=== PATIENT | female | born 1930 | race Caucasian/White ===

== ENCOUNTER 2017-09-11 19:05 | Inpatient (IN) | payer OTHER ==
--- NOTE | 2017-09-11 19:35 | PDOC ---
Rapid Medical Evaluation Time Seen by Provider: 09/11/17 19:27 Medical Evaluation: 09/11/17 19:28 I have performed a brief in-person evaluation of this patient. The patient presents with a chief complaint of: hallucination x 3 weeks. States hallucination worse last night States change in behavior this am, and unable to talk, but now back to normal. States no complaints of pain. Pertinent physical exam findings: HEENT: redness of both sides of face and around eyes NAD unlabored breathing, lungs clear bilaterally heart s1 s2 non tender abdomen I have ordered the following: urinalysis, labs ordered The patient will proceed to the ED for further evaluation.
[2017-09-11 19:36] VITALS: BMI 37.0
[2017-09-11 20:14] LABS: BASO % 0.5 % (0-2.0); EOS % 0.5 % (0-4.5); HEMATOCRIT 36.2 % (32.4-45.2); HEMOGLOBIN 11.9 GM/dL (10.7-15.3); LYMPH % 11.1 % (8-40); MCH 29.4 pg (25.7-33.7); MCHC 32.9 g/dl (32.0-36.0); MEAN CELL VOLUME 89.6 fl (80-96); MEAN PLT VOLUME 10.7 fl (7.5-11.1); MONO % 5.3 % (3.8-10.2); NEUT % 82.6 % (42.8-82.8); PLATELET COUNT 249 K/MM3 (134-434); RBC 4.04 M/mm3 (3.60-5.2); WHITE BLOOD COUNT 9.7 K/mm3 (4.0-10.0)
[2017-09-11 20:31] LABS: INR 0.97 (0.82-1.09)
[2017-09-11 20:33] LABS: ACTIVATED PTT 35.4 SECONDS (26.9-34.4)
[2017-09-11 20:54] LABS: ALK PHOS 98 U/L (45-117); ANION GAP 6 (8-16); BILIRUBIN,TOTAL 0.2 mg/dL (0.2-1.0); BLOOD UREA NITROGEN 40 mg/dL (7-18); CALCIUM 9.1 mg/dL (8.5-10.1); CHLORIDE 107 mmol/L (98-107); CO2 28 mmol/L (21-32); GLUCOSE,RANDOM 221 mg/dL (74-106); SGOT/AST 38 U/L (15-37); SGPT/ALT 34 U/L (12-78); SODIUM 141 mmol/L (136-145); TOT PROT 7.2 g/dl (6.4-8.2)
[2017-09-11 22:38] LABS: PLATELET ESTIMATE ADEQUATE
--- NOTE | 2017-09-11 23:14 | PDOC ---
History of Present Illness - General History Source: Patient Exam Limitations: No Limitations - History of Present Illness Initial Comments: 09/11/17 23:47 Patient is a 87 year old female with pmhx of DM who presents to the ED accompanied by daughters with complaint of hallucinations and increased confusion. As per daughter the patient has been complaining of seeing a man with a gun or mice running around the room. The daughter states that she has noticed increased Parkinson-like symptoms such as tremors, delayed movement and increased difficulty walking. She reports weakness. PCP - Dr. Parsons <Alie Robles - Last Filed: 09/11/17 23:50> <Selam Flores - Last Filed: 09/12/17 01:27> - General Chief Complaint: Psychiatric Stated Complaint: HALUCINATION Time Seen by Provider: 09/11/17 19:27 Past History <Alie Robles - Last Filed: 09/11/17 23:50> - Suicide/Smoking/Psychosocial Hx Smoking History: Never smoked Hx Alcohol Use: No Drug/Substance Use Hx: No <Selam Flores - Last Filed: 09/12/17 01:27> - Past Medical History Allergies/Adverse Reactions: Allergies Allergy/AdvReac Type Severity Reaction Status Date / Time No Known Allergies Allergy Verified 09/11/17 19:32 Review of Systems - Review of Systems Able to Perform ROS?: Yes Comments:: 09/11/17 23:48 CONSTITUTIONAL: Absent: fever, chills, diaphoresis, generalized weakness, malaise, loss of appetite HEENT: Absent: rhinorrhea, nasal congestion, throat pain, throat swelling, difficulty swallowing, mouth swelling, ear pain, eye pain, visual Changes CARDIOVASCULAR: Absent: chest pain, syncope, palpitations, irregular heart rate, lightheadedness , peripheral edema RESPIRATORY: Absent: cough, shortness of breath, dyspnea with exertion, orthopnea, wheezing, stridor, hemoptysis GASTROINTESTINAL: Absent: abdominal pain, abdominal distension, nausea, vomiting, diarrhea, constipation, melena, hematochezia GENITOURINARY: Absent: dysuria, frequency, urgency, hesitancy, hematuria, flank pain, genital pain MUSCULOSKELETAL: Absent: myalgia, arthralgia, joint swelling SKIN: Absent: rash, itching, pallor HEMATOLOGIC/IMMUNOLOGIC: Absent: easy bleeding, easy bruising, lymphadenopathy, frequent infections ENDOCRINE: Absent: unexplained weight gain, unexplained weight loss, heat intolerance, cold intolerance NEUROLOGIC: Absent: headache, focal weakness or paresthesias, dizziness, unsteady gait, seizure, mental status changes, bladder or bowel incontinence PSYCHIATRIC: Present: hallucination Absent: anxiety, depression, suicidal or homicidal ideation. <Stephanie Roblesa - Last Filed: 09/11/17 23:50> *Physical Exam - Vital Signs Last Vital Signs Temp Pulse Resp BP Pulse Ox 98.1 F 57 H 156/92 96 09/11/17 19:25 09/11/17 19:25 09/11/17 19:25 09/11/17 19:25 - Physical Exam Comments: 09/11/17 23:50 GENERAL: Well developed, well nourished. Awake and alert. No acute distress. HEENT: Normocephalic, atraumatic. PERRLA, EOMI. No conjunctival pallor. Sclera are non- icteric. Moist mucous membranes. Oropharynx is clear. NECK: Supple. Full ROM. No JVD. Carotid pulses 2+ and symmetric, without bruits. No thyromegaly. No lymphadenopathy. CARDIOVASCULAR: Regular rate and rhythm. No murmurs, rubs, or gallops. Distal pulses are 2+ and symmetric. PULMONARY: +Bilateral basilar rales. No evidence of respiratory distress. Lungs clear to auscultation bilaterally. No wheezing or rhonchi. ABDOMINAL: Soft. Non-tender. Non-distended. No rebound or guarding. No organomegaly. Normoactive bowel sounds. MUSCULOSKELETAL Normal range of motion at all joints. No bony deformities or tenderness. No CVA tenderness. EXTREMITIES: No cyanosis. No clubbing. No edema. No calf tenderness. SKIN: Warm and dry. Normal capillary refill. No rashes. No jaundice. NEUROLOGICAL: Alert, awake, appropriate. Normal speech. PSYCHIATRIC: Cooperative. Good eye contact. <Alie Robles - Last Filed: 09/11/17 23:50> - Vital Signs Last Vital Signs Temp Pulse Resp BP Pulse Ox 98.1 F 57 H 156/92 96 09/11/17 19:25 09/11/17 19:25 09/11/17 19:25 09/11/17 19:25 <Selam Flores - Last Filed: 09/12/17 01:27> ED Treatment Course - LABORATORY CBC & Chemistry Diagram: 09/11/17 20:05 09/11/17 20:05 - ADDITIONAL ORDERS Additional order review: Laboratory Results 09/11/17 09/11/17 20:05 20:05 PT with INR 11.00 INR 0.97 PTT (Actin FS) 35.4 H Sodium 141 Potassium 4.0 Chloride 107 Carbon Dioxide 28 Anion Gap 6 L BUN 40 H Creatinine 1.0 Creat Clearance w eGFR 52.69 Random Glucose 221 H Calcium 9.1 Total Bilirubin 0.2 AST 38 H ALT 34 Alkaline Phosphatase 98 Total Protein 7.2 Albumin 3.0 L 09/11/17 20:05 RBC 4.04 MCV 89.6 MCHC 32.9 RDW 15.0 MPV 10.7 Neutrophils % 82.6 Lymphocytes % 11.1 Monocytes % 5.3 Eosinophils % 0.5 Basophils % 0.5 <Alie Robles - Last Filed: 09/11/17 23:50> - LABORATORY CBC & Chemistry Diagram: 09/11/17 20:05 09/11/17 20:05 - ADDITIONAL ORDERS Additional order review: Laboratory Results 09/11/17 09/11/17 20:05 20:05 PT with INR 11.00 INR 0.97 PTT (Actin FS) 35.4 H Sodium 141 Potassium 4.0 Chloride 107 Carbon Dioxide 28 Anion Gap 6 L BUN 40 H Creatinine 1.0 Creat Clearance w eGFR 52.69 Random Glucose 221 H Calcium 9.1 Total Bilirubin 0.2 AST 38 H ALT 34 Alkaline Phosphatase 98 Total Protein 7.2 Albumin 3.0 L 09/11/17 20:05 RBC 4.04 MCV 89.6 MCHC 32.9 RDW 15.0 MPV 10.7 Neutrophils % 82.6 Lymphocytes % 11.1 Monocytes % 5.3 Eosinophils % 0.5 Basophils % 0.5 - RADIOLOGY Radiology Studies Ordered: Category Date Time Status HEAD CT WITHOUT CONTRAST [CT] Stat CT Scan 09/11/17 20:39 Completed <Selam Flores - Last Filed: 09/12/17 01:27> Medical Decision Making - Medical Decision Making 09/12/17 01:23 family brought in this 87 yo female because of the past month her hallucinations have been getting worse,she is having increased difficulty walking and she has an arm tremor -no fever ct scan is negative for any acute intracranial pathology UA negative no significant anemia chemistry reveals bun=40 , some dehydration Also hyperglycemia with [id number] Madera , pt will be admitted for further neurological evaluation 09/12/17 01:26 <Selam Flores - Last Filed: 09/12/17 01:27> *DC/Admit/Observation/Transfer - Attestations Scribe Attestion: 09/11/17 23:49 Documentation prepared by CHANNING Santizo, acting as certified medical aide for Selam Flores MD/DO. <Alie Robles - Last Filed: 09/11/17 23:50> - Discharge Dispostion Admit: Yes <Selam Flores - Last Filed: 09/12/17 01:27> Diagnosis at time of Disposition: Hallucinations, visual, Difficulty walking, Coarse tremors Diabetes Qualifiers: Diabetes mellitus type: type 2 Diabetes mellitus complication status: with hyperglycemia Diabetes mellitus intermediate accountant insulin use: without intermediate accountant use Qualified Code(s): E11.65 - Type 2 diabetes mellitus with hyperglycemia
[2017-09-11 23:51] LABS: URINE APPEARANCE SLCLOUDY; URINE BILIRUBIN NEGATIVE (NEGATIVE); URINE BLOOD NEGATIVE (NEGATIVE); URINE COLOR YELLOW; URINE GLUCOSE (UA) NEGATIVE (NEGATIVE); URINE KETONE NEGATIVE (NEGATIVE); URINE NITRITE NEGATIVE (NEGATIVE); URINE UROBILINOGEN NEGATIVE mg/dL (0.2-1.0)
[2017-09-11 23:55] LABS: URINE LEUK ESTERASE 1+ (NEGATIVE); URINE PROTEIN 2+ (NEGATIVE)
[2017-09-11 23:56] LABS: EPI CELLS RARE /HPF (FEW); URINE HYALINE CAST 1 /lpf
[2017-09-12] MEDS ORDERED: ACETAMINOPHEN 325 MG TABLET (FP) PO PRN (06:11)
[2017-09-12] MEDS: INSULIN SLIDING SCALE (NOVOLOG) 1 VIAL SQ SCH ×4 (07:03→22:09)
--- NOTE | 2017-09-12 08:54 | HP ---
Admitting History and Physical - Admission History of Present Illness: 87 year old female with pmhx of DM who presents to the ED accompanied by daughters with complaint of hallucinations and increased confusion. As per daughter the patient has been complaining of seeing a man with a gun or mice running around the room. The daughter states that she has noticed increased Parkinson-like symptoms such as tremors, delayed movement and increased difficulty walking. She reports weakness. PCP - Dr. 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 Cardiovascular: Yes: HTN, Hyperlipdemia Pulmonary: Yes: COPD Endocrine: Yes: Diabetes Mellitus - Smoking History Smoking history: Never smoked Have you smoked in the past 12 months: No - Alcohol/Substance Use Hx Alcohol Use: No Home Medications - Allergies Allergies/Adverse Reactions: Allergies Allergy/AdvReac Type Severity Reaction Status Date / Time No Known Allergies Allergy Verified 09/11/17 19:32 - Home Medications Home Medications: Ambulatory Orders Albuterol Sulfate Inhaler - [Ventolin Hfa Inhaler -] 1 - 2 inh PO QID 09/12/17 Amlodipine Bes/Olmesartan Med [Amlodipine-Olmesartan 10-40 mg] 1 each PO DAILY 09/12/17 Atorvastatin Ca [Lipitor] 20 mg PO HS 09/12/17 Bimatoprost [Lumigan] 1 drop IO DAILY 09/12/17 Brimonidine Tartrate/Timolol [Combigan Eye Drops] 5 ml OP HS 09/12/17 Budesonide/Formeterol Fumarate [SYMBICORT 160/4.5mcg -] 1 inh PO DAILY 09/12/17 Febuxostat [Uloric] 40 mg PO DAILY 09/12/17 Furosemide [Lasix -] 20 mg PO DAILY 09/12/17 Icosapent Ethyl [Vascepa] 1 gm PO DAILY 09/12/17 Insulin Detemir [Levemir Flextouch] 100 unit SQ BIDAC 09/12/17 Montelukast Na [Singulair -] 10 mg PO HS 09/12/17 Nebivolol HCl [Bystolic] 20 mg PO DAILY 09/12/17 Omeprazole 20 mg PO DAILY 09/12/17 Roflumilast [Daliresp] 500 mcg PO DAILY 09/12/17 Saxagliptin HCl [Onglyza] 5 mg PO DAILY 09/12/17 Umeclidinium [place] [Incruse Ellipta] 62.5 mcg IH PRN PRN 09/12/17 Review of Systems - Review of Systems Constitutional: denies: Fever Cardiovascular: reports: No Symptoms Respiratory: reports: No Symptoms Gastrointestinal: reports: No Symptoms Neurological: reports: Confusion, Other (hallucinations) Physical Examination Vital Signs: Vital Signs Temperature 97.8 F 09/12/17 06:00 Pulse Rate 67 09/12/17 06:00 Respiratory Rate 18 09/12/17 06:00 Blood Pressure 141/68 09/12/17 06:00 O2 Sat by Pulse Oximetry (%) 94 L 09/12/17 03:34 Cardiovascular: Yes: Regular Rate and Rhythm Respiratory: Yes: Regular, CTA Bilaterally Gastrointestinal: Yes: Normal Bowel Sounds, Soft Edema: No Neurological: Yes: Alert, Confusion. No: Pre-Existing Deficit Labs: CBC, BMP 09/11/17 20:05 09/11/17 20:05 Imaging - Results Cat Scan: Report Reviewed Problem List - Problems (1) HTN (hypertension) Assessment/Plan: MONITOR BP ON CURRENT MEDS Vital Signs Period Temp Pulse Resp BP Sys/Garcia Pulse Ox Last 24 Hr 97.5 F-98.1 F 63-67 18-57 141-156/68-92 94-98 Code(s): I10 - ESSENTIAL (PRIMARY) HYPERTENSION (2) Diabetes Assessment/Plan: SAME MEDS BGM Code(s): E11.9 - TYPE 2 DIABETES MELLITUS WITHOUT COMPLICATIONS Qualifiers: Diabetes mellitus type: type 2 Diabetes mellitus complication status: with hyperglycemia Diabetes mellitus alf insulin use: without alf use Qualified Code(s): E11.65 - Type 2 diabetes mellitus with hyperglycemia (3) Hallucinations, visual Assessment/Plan: MRI OF HEAD NEURO CHECK LABS Code(s): R44.1 - VISUAL HALLUCINATIONS
[2017-09-12] MEDS: PANTOPRAZOLE 40 MG TABLET (FP) PO SCH (09:23)
[2017-09-12] MEDS: FUROSEMIDE 40 MG TABLET (FP) PO SCH (09:23)
[2017-09-12] MEDS: NEBIVOLOL 5 MG TABLET (FP) PO SCH (09:23)
[2017-09-12] MEDS: amLODIPine BESYLATE 10 MG TABLET (FP) PO SCH (09:23)
[2017-09-12] MEDS: VALSARTAN 160 MG TABLET (UD) PO SCH (09:23)
[2017-09-12 09:56] LABS: BASO % 1.1 % (0-2.0); HEMATOCRIT 34.3 % (32.4-45.2); HEMOGLOBIN 11.1 GM/dL (10.7-15.3); LYMPH % 20.5 % (8-40); MCHC 32.4 g/dl (32.0-36.0); MEAN CELL VOLUME 89.3 fl (80-96); MEAN PLT VOLUME 10.6 fl (7.5-11.1); MONO % 7.5 % (3.8-10.2); NEUT % 69.9 % (42.8-82.8); PLATELET COUNT 231 K/MM3 (134-434); RBC 3.84 M/mm3 (3.60-5.2); RDW 14.4 % (11.6-15.6); WHITE BLOOD COUNT 7.1 K/mm3 (4.0-10.0)
[2017-09-12] MEDS ORDERED: PNEUMOC 13-VAL CONJ-DIP CRM/PF 0.5 ML DISP.SYRIN IM ONE (10:00)
[2017-09-12] MEDS ORDERED: FLU VACCINE QUAD 60 MCG/0.5 ML (MDV 17-18) IM ONE (10:00)
[2017-09-12 10:19] LABS: CHLORIDE 109 mmol/L (98-107); POTASSIUM 3.8 mmol/L (3.5-5.1); SODIUM 144 mmol/L (136-145)
[2017-09-12 10:33] LABS: ALBUMIN 2.8 g/dl (3.4-5.0); ALK PHOS 85 U/L (45-117); ANION GAP 6 (8-16); BILIRUBIN,TOTAL 0.3 mg/dL (0.2-1.0); BLOOD UREA NITROGEN 29 mg/dL (7-18); CALCIUM 9.2 mg/dL (8.5-10.1); CO2 29 mmol/L (21-32); CREATININE 0.7 mg/dL (0.55-1.02); GLUCOSE,RANDOM 128 mg/dL (74-106); SGOT/AST 33 U/L (15-37); TOT PROT 6.5 g/dl (6.4-8.2)
[2017-09-12] MEDS: ALBUTEROL SO4 2.5/IPRATROPIUM 0.5 INH SOL 3 ML VIAL.NEB. NEB PRN ×2 (10:52→23:15)
[2017-09-12 10:53] LABS: SGPT/ALT 32 U/L (12-78)
[2017-09-12] MEDS: ROFLUMILAST 500 MCG TABLET PO SCH (11:00)
[2017-09-12] MEDS: FEBUXOSTAT 40 MG TAB PO SCH (11:00)
[2017-09-12] MEDS: BUDESONIDE/FORMETEROL FUMARATE 160/4.5 mcg INHALER IH SCH ×2 (11:00→23:00)
[2017-09-12] MEDS ORDERED: PT OWN MED DRAWER 7, Y5N ONE ×2 (16:19→21:42)
[2017-09-12] MEDS ORDERED: INSULIN DETEMIR 100 UNITS/ML MDV SQ SCH ×2 (16:30→22:00)
[2017-09-12] MEDS ORDERED: INSULIN (NOVOLOG) ASPART 100 UNITS/ML 10ML VIAL ONE ×2 (17:32→21:41)
[2017-09-12] MEDS ORDERED: INSULIN (NOVOLOG MIX 70/30) 100 UNITS/ML MDV SQ ONE (17:32)
[2017-09-12] MEDS ORDERED: LORazepam 1 MG TABLET PO ONE (19:30)
--- NOTE | 2017-09-12 21:16 | EKG ---
Test Reason : Blood Pressure : / mmHG Vent. Rate : 059 BPM Atrial Rate : 059 BPM P-R Int : 190 ms QRS Dur : 098 ms QT Int : 444 ms P-R-T Axes : 026 -14 068 degrees QTc Int : 439 ms SINUS BRADYCARDIA SEPTAL INFARCT (CITED ON OR BEFORE 11-SEP-2017) ABNORMAL ECG WHEN COMPARED WITH ECG OF 11-SEP-2017 21:52, NO SIGNIFICANT CHANGE WAS FOUND Confirmed by MD REBECA, DEEPTHI ([id number]) on 09/12/2017 9:16:12 PM Referred By: Sam SERVIN Confirmed By:DEEPTHI JOSE MD
[2017-09-12] MEDS ORDERED: DEXTROSE 50%-WATER - 25 GM/50 ML VIAL IVPUSH ONE (22:00)
[2017-09-12] MEDS ORDERED: DEXTROSE 50%-WATER 25 GM/50 ML DISP.SYRIN ONE (22:02)
[2017-09-12] MEDS: MONTELUKAST NA 10 MG TABLET PO SCH (23:00)
[2017-09-12] MEDS: ATORVASTATIN CA 20 MG TABLET (FP) PO SCH (23:00)
--- NOTE | 2017-09-12 23:30 | HOSP ---
Subjective - Review of Symptoms Events since last encounter: Late entry for rapid response called at 10PM: Rapid response called due to hypoglycemia. BGM noted 31. Physical Examination Vital Signs: Vital Signs Temperature 98.3 F 09/12/17 19:10 Pulse Rate 64 09/12/17 19:10 Respiratory Rate 18 09/12/17 19:10 Blood Pressure 133/70 09/12/17 19:10 O2 Sat by Pulse Oximetry (%) 94 L 09/12/17 10:00 Constitutional: Yes: Diaphoresis Cardiovascular: Yes: Regular Rate and Rhythm, S1, S2 Respiratory: Yes: CTA Bilaterally Gastrointestinal: Yes: Normal Bowel Sounds, Soft Neurological: Yes: Other (pt lethargic but arousable, confused, able to squeeze hand) Labs: CBC, BMP 09/12/17 09:15 09/12/17 09:15 Hospitalist Encounter Assessment: Hypoglycemia - Dextrose 50% one amp given with good response. pt alert, back to baseline - repeat BGM in one hour. - pt received 50u levemir @ 530pm, will decrease dose by 25% to 37 units for tomorrow - consider splitting dose into bid dosing Addendum 0200: Pt BGM again 38. D50 given again, repeat BGM one hour. nursing staff report poor po intake. Will start IVF D5NS @ 75 cc/hr for now, reassess by PCP in am. will dc levemir for now, restart when po intake improved or sugars elevated.
[2017-09-13] MEDS: DEXTROSE 5%-NORMAL SALINE 1,000 ML IV SCH ×2 (02:26→23:10)
[2017-09-13] MEDS ORDERED: DEXTROSE 50%-WATER - 25 GM/50 ML VIAL IVPUSH ONE (02:30)
[2017-09-13] MEDS: INSULIN SLIDING SCALE (NOVOLOG) 1 VIAL SQ SCH ×4 (06:13→23:09)
[2017-09-13] MEDS ORDERED: INSULIN (NOVOLOG) ASPART 100 UNITS/ML 10ML VIAL ONE ×2 (06:21→21:23)
--- NOTE | 2017-09-13 11:19 | EKG ---
Test Reason : Blood Pressure : / mmHG Vent. Rate : 054 BPM Atrial Rate : 054 BPM P-R Int : 164 ms QRS Dur : 098 ms QT Int : 488 ms P-R-T Axes : 039 -02 077 degrees QTc Int : 462 ms POOR DATA QUALITY, INTERPRETATION MAY BE ADVERSELY AFFECTED SINUS BRADYCARDIA SEPTAL INFARCT , AGE UNDETERMINED ABNORMAL ECG NO PREVIOUS ECGS AVAILABLE Confirmed by TERESA MASCORRO, KULWINDER ([id number]) on 09/13/2017 11:19:07 AM Referred By: Confirmed By:KULWINDER MOORE MD
[2017-09-13] MEDS ORDERED: PT OWN MED DRAWER 7, Y5N ONE (11:45)
[2017-09-13] MEDS: NEBIVOLOL 5 MG TABLET (FP) PO SCH ×2 (11:55→23:20)
[2017-09-13] MEDS: VALSARTAN 160 MG TABLET (UD) PO SCH (11:56)
[2017-09-13] MEDS: PANTOPRAZOLE 40 MG TABLET (FP) PO SCH (11:57)
[2017-09-13] MEDS: amLODIPine BESYLATE 10 MG TABLET (FP) PO SCH (11:57)
[2017-09-13] MEDS: ROFLUMILAST 500 MCG TABLET PO SCH (11:59)
[2017-09-13] MEDS: FEBUXOSTAT 40 MG TAB PO SCH (11:59)
[2017-09-13] MEDS: BUDESONIDE/FORMETEROL FUMARATE 160/4.5 mcg INHALER IH SCH ×2 (11:59→23:07)
[2017-09-13] MEDS: FUROSEMIDE 40 MG TABLET (FP) PO SCH (12:00)
--- NOTE | 2017-09-13 14:31 | CONSULT ---
Consult - text type - Consultation Consultation Note: NEUROLOGY CONSULTATION is greatly appreciated: Events reviewed and discussed with RN (Magali). Pt examined at 9:00 hrs. This 87 yo RH woman lives with her daughter. Cameroonian speaking only. PMH sig for HTN, DM, Chol, gout,COPD, GERD, gloucoma. On insulisns, onglyza, ventolyn, daliresp, amlodipine, atorvastatin, uloric, lasix, vascepas, singulair, Bystolic, omeprazole, ellipta, and multiple gtts. Now admitted after 3 weeks of increased confusion, visual hallucinations and "worsening Parkinsonian symtoms" although it is not clear that she carries a diagnosis of Parkinson's disease. Hallucinations included men in her room with a gun and mice scurrying around the floor. CT of head and MRI of brain (both reviewed): Show moderate atrophy and moderate periventricular, white matter, microvascular changes. No CVA's etc. B12, TSH normal. Episode of hypoglycemia last night noted. EXAM: Pt found in W/C in hallway. Calm, cooperative. No head trauma. No bruits. Follows commands in Cam[place]onian. +Glabella. Does not know the day, month or year. Sparse fluent speech. CN II-XII: normal. Sl masked. Motor: No drift. + rest tremor. + cogwheeling. Normal strength and reflexes. Toes downgoing. Coord: No obvious FTN dystaxia Sensory: Feels touch throughout. Gait: Stands with assistance. + Retropulsive. Frozen, festinating. IMP: 1. Moderate, Bilateral, Cerebral dysfunction (OMS/Chronic features). 2. Parkinsonism, possible Parkinson's disease. 3. Parkinson's Disease Psychosis- Cannot exclude Lewy Body Dementia (LBD) . SUGGEST: Check RPR and r/o occult infection. Simplify polypharmacy as much as possible. Night light and gentle environmental stimulae Try Carbidopa/levadopa ER 25/100: 1/2 PO TID with meals for 1 week then 1 PO TID with meals. Nuplazid (Pimavanserin) 34 mg PO q AM as out patient for Parkinson 's disease Psychosis Begin Rivastigmine 1.5 mg BID with breakfast and dinner for OMS. Thank you very much, Ruslan Murillo MD
[2017-09-13] MEDS ORDERED: INSULIN DETEMIR 100 UNITS/ML MDV SQ SCH ×2 (16:30)
--- NOTE | 2017-09-13 18:33 | PN ---
Progress Note, Physician Chief Complaint: Altered Mental Status History of Present Illness: NAD, head CT negative hypoglycemia overnight noted levemir on hold neurology consult appreciated - Current Medication List Current Medications: Active Medications Acetaminophen (Tylenol -) 650 mg PO Q6H PRN PRN Reason: FEVER OR PAIN Last Admin: 09/12/17 16:09 Dose: 650 mg Albuterol/Ipratropium (Duoneb -) 1 amp NEB Q6H PRN PRN Reason: SHORTNESS OF BREATH Last Admin: 09/12/17 23:15 Dose: 1 amp Amlodipine Besylate (Norvasc -) 10 mg PO DAILY [facility] Last Admin: 09/13/17 11:57 Dose: Not Given Atorvastatin Calcium (Lipitor -) 20 mg PO HS [facility] Last Admin: 09/12/17 23:00 Dose: Not Given Budesonide/Formoterol Fumarate (Symbicort 160/4.5mcg -) 2 puff IH BID [facility] Last Admin: 09/13/17 11:59 Dose: Not Given Carbidopa/Levodopa (Sinemet *Cr* 25/100 -) 0.5 combo PO TID [facility] Febuxostat (Uloric -) 40 mg PO DAILY [facility] Last Admin: 09/13/17 11:59 Dose: 40 mg Furosemide (Lasix -) 40 mg PO DAILY [facility] Last Admin: 09/13/17 12:00 Dose: Not Given Dextrose/Sodium Chloride (D5-Ns -) 1,000 mls @ 75 mls/hr IV ASDIR [facility] Last Admin: 09/13/17 02:26 Dose: 75 mls/hr Insulin Aspart (Novolog Vial Sliding Scale -) 1 vial SQ ACHS [facility] PRN Reason: Protocol Last Admin: 09/13/17 17:51 Dose: Not Given Montelukast Sodium (Singulair -) 10 mg PO HS [facility] Last Admin: 09/12/17 23:00 Dose: Not Given Nebivolol (Bystolic -) 5 mg PO DAILY [facility] Last Admin: 09/13/17 11:55 Dose: Not Given Pantoprazole Sodium (Protonix -) 40 mg PO DAILY [facility] Last Admin: 09/13/17 11:57 Dose: 40 mg Rivastigmine Tartrate (Exelon (Nf) -) 1.5 mg PO BID [facility] Roflumilast (Daliresp -) 500 mcg PO DAILY [facility] Last Admin: 09/13/17 11:59 Dose: 500 mcg Valsartan (Diovan -) 160 mg PO DAILY [facility] Last Admin: 09/13/17 11:56 Dose: Not Given - Objective Vital Signs: Vital Signs Temperature 97.3 F L 09/13/17 15:21 Pulse Rate 60 09/13/17 15:21 Respiratory Rate 18 09/13/17 15:21 Blood Pressure 136/72 09/13/17 15:21 O2 Sat by Pulse Oximetry (%) 93 L 09/12/17 21:00 Constitutional: Yes: Well Nourished, No Distress, Calm Cardiovascular: Yes: Regular Rate and Rhythm Respiratory: Yes: Regular Gastrointestinal: Yes: Normal Bowel Sounds Musculoskeletal: Yes: WNL Extremities: Yes: WNL Neurological: Yes: Alert, Pre-Existing Deficit Psychiatric: Yes: Alert Labs: CBC, BMP 09/12/17 09:15 09/12/17 09:15 INR, PTT INR 0.97 (0.82-1.09) 09/11/17 20:05 Problem List - Problems (1) Coarse tremors Code(s): G25.2 - OTHER SPECIFIED FORMS OF TREMOR (2) Diabetes Assessment/Plan: -Endocrinology consult -short acting insulin for now -hold long acting insulin Code(s): E11.9 - TYPE 2 DIABETES MELLITUS WITHOUT COMPLICATIONS Qualifiers: Diabetes mellitus type: type 2 Diabetes mellitus complication status: with hyperglycemia Diabetes mellitus chcf insulin use: without chcf use Qualified Code(s): E11.65 - Type 2 diabetes mellitus with hyperglycemia (3) Hallucinations, visual Assessment/Plan: seen by Neurology -CT head negative -medication regimen adjusted Code(s): R44.1 - VISUAL HALLUCINATIONS (4) HTN (hypertension) Assessment/Plan: Medications readjusted parameters placed Code(s): I10 - ESSENTIAL (PRIMARY) HYPERTENSION Assessment/Plan see problem list Physical therapy
[2017-09-13] MEDS ORDERED: amLODIPine BESYLATE 10 MG TABLET (FP) PO SCH (19:31)
--- NOTE | 2017-09-13 19:54 | CONSULT ---
Consult Consult Specialty:: Endocrinology coverage for Dr Mckay Reason for Consultation:: uncontrolled blood sugar - History of Present Illness Chief Complaint: Confusion History of Present Illness: This is an 87 year old female with h/o DM for few years, on Insulin who presents to the ED accompanied by daughters with complaint of hallucinations and increased confusion. As per daughter the patient has been complaining of seeing a man with a gun or mice running around the room. The daughter states that she has noticed increased Parkinson-like symptoms such as tremors, delayed movement and increased difficulty walking. She reports weakness. As per family members at bedside pt gets Levemir 15 to 20 units daily. Last blood sugar at home was in the 80s. Has history of hospitalization for hyperglycemia once about a year ago. No admissions for hypoglycemia. Pt had episode of hypoglycemia last night which needed IV glucose. Pt currently awake, alert and follows instructions. As per family members pt didnot complain of any visual symptoms or paresthesia of feet. 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 Cardio/Vascular: Yes: HTN, Hyperlipdemia Pulmonary: Yes: COPD Endocrine: Yes: Diabetes Mellitus - Alcohol/Substance Use Hx Alcohol Use: No - Smoking History Smoking history: Never smoked Have you smoked in the past 12 months: No Home Medications - Allergies Allergies/Adverse Reactions: Allergies Allergy/AdvReac Type Severity Reaction Status Date / Time No Known Allergies Allergy Verified 09/11/17 19:32 - Home Medications Home Medications: Ambulatory Orders Albuterol Sulfate Inhaler - [Ventolin Hfa Inhaler -] 1 - 2 inh PO QID 09/12/17 Amlodipine Bes/Olmesartan Med [Amlodipine-Olmesartan 10-40 mg] 1 each PO DAILY 09/12/17 Atorvastatin Ca [Lipitor] 20 mg PO HS 09/12/17 Bimatoprost [Lumigan] 1 drop IO DAILY 09/12/17 Brimonidine Tartrate/Timolol [Combigan Eye Drops] 5 ml OP HS 09/12/17 Budesonide/Formeterol Fumarate [SYMBICORT 160/4.5mcg -] 1 inh PO DAILY 09/12/17 Febuxostat [Uloric] 40 mg PO DAILY 09/12/17 Furosemide [Lasix -] 20 mg PO DAILY 09/12/17 Icosapent Ethyl [Vascepa] 1 gm PO DAILY 09/12/17 Insulin Detemir [Levemir Flextouch] 100 unit SQ BIDAC 09/12/17 Montelukast Na [Singulair -] 10 mg PO HS 09/12/17 Nebivolol HCl [Bystolic] 20 mg PO DAILY 09/12/17 Omeprazole 20 mg PO DAILY 09/12/17 Roflumilast [Daliresp] 500 mcg PO DAILY 09/12/17 Saxagliptin HCl [Onglyza] 5 mg PO DAILY 09/12/17 Umeclidinium [place] [Incruse Ellipta] 62.5 mcg IH PRN PRN 09/12/17 Family Disease History - Family Disease History Family Disease History: Diabetes: Daughter Review of Systems Unable to obtain ROS, reason: Confusion Physical Exam Vital Signs: Vital Signs Temperature 97.4 F L 09/13/17 19:01 Pulse Rate 60 09/13/17 15:21 Respiratory Rate 18 09/13/17 15:21 Blood Pressure 136/72 09/13/17 15:21 O2 Sat by Pulse Oximetry (%) 93 L 09/12/17 21:00 Constitutional: Yes: Well Nourished, Calm Eyes: Yes: Conjunctiva Clear, EOM Intact HENT: Yes: Atraumatic, Normocephalic Neck: Yes: Supple, Trachea Midline Cardiovascular: Yes: Regular Rate and Rhythm Respiratory: Yes: Regular, CTA Bilaterally Gastrointestinal: Yes: Normal Bowel Sounds, Soft Extremities: Yes: WNL Edema: No Neurological: Yes: Alert Labs: CBC, BMP 09/12/17 09:15 09/12/17 09:15 Problem List - Problems (1) Diabetes Code(s): E11.9 - TYPE 2 DIABETES MELLITUS WITHOUT COMPLICATIONS Qualifiers: Diabetes mellitus type: type 2 Diabetes mellitus complication status: with hyperglycemia Diabetes mellitus watermelon inspector insulin use: without long-term use Qualified Code(s): E11.65 - Type 2 diabetes mellitus with hyperglycemia (2) HTN (hypertension) Code(s): I10 - ESSENTIAL (PRIMARY) HYPERTENSION (3) Hallucinations, visual Code(s): R44.1 - VISUAL HALLUCINATIONS Assessment/Plan AP: Confusion Dementia T2DM Continue D5NS at 75cc/hr Novolog coverage when Fs 200 HbA1c 9.0 If no contraindication pt maybe started on oral meds instead of Insulin to avoid hypoglycemia. Neurology consult noted Will f/u
[2017-09-13] MEDS ORDERED: RIVASTIGMINE TARTRATE 1.5 MG CAPSULE PO SCH (22:00)
[2017-09-13] MEDS: MONTELUKAST NA 10 MG TABLET PO SCH (23:08)
[2017-09-13] MEDS: ATORVASTATIN CA 20 MG TABLET (FP) PO SCH (23:09)
[2017-09-13] MEDS: amLODIPine BESYLATE 5 MG TABLET (FP) PO SCH (23:21)
[2017-09-14] MEDS: DEXTROSE 5%-NORMAL SALINE 1,000 ML IV SCH ×2 (02:30→13:52)
[2017-09-14] MEDS: INSULIN SLIDING SCALE (NOVOLOG) 1 VIAL SQ SCH ×4 (07:00→21:51)
[2017-09-14] MEDS: RIVASTIGMINE TARTRATE 1.5 MG CAPSULE PO SCH ×2 (09:00→16:49)
[2017-09-14] MEDS ORDERED: PT OWN MED DRAWER 7, Y5N ONE ×3 (09:28→20:42)
[2017-09-14] MEDS: FEBUXOSTAT 40 MG TAB PO SCH (09:30)
[2017-09-14] MEDS: ROFLUMILAST 500 MCG TABLET PO SCH (09:30)
[2017-09-14] MEDS: FUROSEMIDE 40 MG TABLET (FP) PO SCH (09:31)
[2017-09-14] MEDS: PANTOPRAZOLE 40 MG TABLET (FP) PO SCH (09:31)
[2017-09-14] MEDS: VALSARTAN 160 MG TABLET (UD) PO SCH (09:31)
[2017-09-14] MEDS: amLODIPine BESYLATE 5 MG TABLET (FP) PO SCH (09:31)
[2017-09-14] MEDS: NEBIVOLOL 5 MG TABLET (FP) PO SCH (09:31)
[2017-09-14] MEDS: BUDESONIDE/FORMETEROL FUMARATE 160/4.5 mcg INHALER IH SCH ×2 (10:00→21:51)
--- NOTE | 2017-09-14 11:27 | PN ---
Progress Note, Physician Chief Complaint: Altered Mental Status History of Present Illness: NAD, head CT negative on D5 ns seen by endocrinology Novolog coverage for BGM >200 may be PO antihyperglycemics once BGM's normalized neurology consult appreciated - Current Medication List Current Medications: Active Medications Acetaminophen (Tylenol -) 650 mg PO Q6H PRN PRN Reason: FEVER OR PAIN Last Admin: 09/12/17 16:09 Dose: 650 mg Albuterol/Ipratropium (Duoneb -) 1 amp NEB Q6H PRN PRN Reason: SHORTNESS OF BREATH Last Admin: 09/12/17 23:15 Dose: 1 amp Amlodipine Besylate (Norvasc -) 5 mg PO DAILY [facility] Last Admin: 09/14/17 09:31 Dose: 5 mg Atorvastatin Calcium (Lipitor -) 20 mg PO HS [facility] Last Admin: 09/13/17 23:09 Dose: 20 mg Budesonide/Formoterol Fumarate (Symbicort 160/4.5mcg -) 2 puff IH BID [facility] Last Admin: 09/13/17 23:07 Dose: 2 inh Carbidopa/Levodopa (Sinemet *Cr* 25/100 -) 0.5 combo PO TIDCM MIAH Stop: 09/16/17 17:31 Last Admin: 09/14/17 09:00 Dose: 0.5 combo Carbidopa/Levodopa (Sinemet *Cr* 25/100 -) 1 combo PO TIDCM MIAH Febuxostat (Uloric -) 40 mg PO DAILY [facility] Last Admin: 09/14/17 09:30 Dose: 40 mg Furosemide (Lasix -) 40 mg PO DAILY [facility] Last Admin: 09/14/17 09:31 Dose: 40 mg Dextrose/Sodium Chloride (D5-Ns -) 1,000 mls @ 75 mls/hr IV ASDIR [facility] Last Admin: 09/14/17 02:30 Dose: Not Given Insulin Aspart (Novolog Vial Sliding Scale -) 1 vial SQ ACHS MIAH PRN Reason: Protocol Last Admin: 09/14/17 07:00 Dose: Not Given Montelukast Sodium (Singulair -) 10 mg PO HS [facility] Last Admin: 09/13/17 23:08 Dose: 10 mg Nebivolol (Bystolic -) 5 mg PO DAILY [facility] Last Admin: 09/14/17 09:31 Dose: 5 mg Pantoprazole Sodium (Protonix -) 40 mg PO DAILY [facility] Last Admin: 09/14/17 09:31 Dose: 40 mg Rivastigmine Tartrate (Exelon (Nf) -) 1.5 mg PO BIDWM [facility] Last Admin: 09/14/17 09:00 Dose: 1.5 mg Roflumilast (Daliresp -) 500 mcg PO DAILY [facility] Last Admin: 09/14/17 09:30 Dose: 500 mcg Valsartan (Diovan -) 160 mg PO DAILY [facility] Last Admin: 09/14/17 09:31 Dose: 160 mg - Objective Vital Signs: Vital Signs Temperature 97.9 F 09/14/17 10:00 Pulse Rate 65 09/14/17 10:00 Respiratory Rate 20 09/14/17 10:00 Blood Pressure 145/63 09/14/17 10:00 O2 Sat by Pulse Oximetry (%) 96 09/14/17 10:00 Constitutional: Yes: Well Nourished, No Distress, Calm Cardiovascular: Yes: Regular Rate and Rhythm Respiratory: Yes: Regular Gastrointestinal: Yes: Normal Bowel Sounds Edema: No Peripheral Pulses WNL: Yes Neurological: Yes: Alert, Pre-Existing Deficit Psychiatric: Yes: Alert Labs: CBC, BMP 09/12/17 09:15 09/12/17 09:15 INR, PTT INR 0.97 (0.82-1.09) 09/11/17 20:05 Problem List - Problems (1) Coarse tremors Code(s): G25.2 - OTHER SPECIFIED FORMS OF TREMOR (2) Diabetes Assessment/Plan: -Endocrinology consult -short acting insulin for now -hold long acting insulin -D5 Code(s): E11.9 - TYPE 2 DIABETES MELLITUS WITHOUT COMPLICATIONS Qualifiers: Diabetes mellitus type: type 2 Diabetes mellitus complication status: with hyperglycemia Diabetes mellitus assisted insulin use: without assisted use Qualified Code(s): E11.65 - Type 2 diabetes mellitus with hyperglycemia (3) Hallucinations, visual Assessment/Plan: seen by Neurology -CT head negative -medication regimen adjusted Code(s): R44.1 - VISUAL HALLUCINATIONS (4) HTN (hypertension) Assessment/Plan: Medications readjusted parameters placed Code(s): I10 - ESSENTIAL (PRIMARY) HYPERTENSION Assessment/Plan see problem list Physical therapy
[2017-09-14] MEDS ORDERED: DEXTROSE 5%-NORMAL SALINE 1,000 ML IV SCH (12:19)
--- NOTE | 2017-09-14 12:23 | PN ---
Progress Note (short form) - Note Progress Note: Awake, Sitting in chair in NAD Blood sugar 200s No hypos Vital Signs Period Temp Pulse Resp BP Sys/Garcia Pulse Ox Last 24 Hr 97.3 F-98.1 F 60-127 18-20 128-150/63-81 94-96 PE: Awake, alert Neck: Supple, No JVD HEENT: EOMI Lungs: CTA CVS: S1S2 Abd: Benign EXt: No edema CMP Sodium 144 mmol/L (136-145) 09/12/17 09:15 Potassium 3.8 mmol/L (3.5-5.1) 09/12/17 09:15 Chloride 109 mmol/L (98-107) H 09/12/17 09:15 Carbon Dioxide 29 mmol/L (21-32) 09/12/17 09:15 Anion Gap 6 (8-16) L 09/12/17 09:15 BUN 29 mg/dL (7-18) H D 09/12/17 09:15 Creatinine 0.7 mg/dL (0.55-1.02) D 09/12/17 09:15 Creat Clearance w eGFR > 60 (>60) 09/12/17 09:15 POC Glucometer 199 UNITS (80-120) 09/14/17 06:31 Random Glucose 128 mg/dL (74-106) H D 09/12/17 09:15 Hemoglobin A1c % 9.0 % (4.8-6.0) H 09/12/17 09:15 Uric Acid 2.3 mg/dL (2.6-7.2) L 09/14/17 06:00 Calcium 9.2 mg/dL (8.5-10.1) 09/12/17 09:15 Total Bilirubin 0.3 mg/dL (0.2-1.0) D 09/12/17 09:15 AST 33 U/L (15-37) 09/12/17 09:15 ALT 32 U/L (12-78) 09/12/17 09:15 Alkaline Phosphatase 85 U/L (45-117) 09/12/17 09:15 Total Protein 6.5 g/dl (6.4-8.2) 09/12/17 09:15 Albumin 2.8 g/dl (3.4-5.0) L 09/12/17 09:15 Vitamin B12 1620 pg/ml (180-914) H 09/12/17 09:15 TSH 1.91 uIU/ml (0.358-3.74) 09/12/17 09:15 Current Medications Generic Name Dose Route Start Last Admin Trade Name Freq PRN Reason Stop Dose Admin Acetaminophen 650 mg 09/12/17 06:11 09/12/17 16:09 Tylenol - PO 650 mg Q6H PRN Administration FEVER OR PAIN Albuterol/Ipratropium 1 amp 09/12/17 06:11 09/12/17 23:15 Duoneb - NEB 1 amp Q6H PRN Administration SHORTNESS OF BREATH Amlodipine Besylate 5 mg 09/13/17 19:45 09/14/17 09:31 Norvasc - PO 5 mg DAILY MIAH Administration Atorvastatin Calcium 20 mg 09/12/17 22:00 09/13/17 23:09 Lipitor - PO 20 mg HS MIAH Administration Budesonide/Formoterol Fumarate 2 puff 09/12/17 10:00 09/13/17 23:07 Symbicort 160/4.5mcg - IH 2 inh BID MIAH Administration Carbidopa/Levodopa 0.5 combo 09/14/17 08:00 09/14/17 09:00 Sinemet *Cr* 25/100 - PO 09/16/17 17:31 0.5 combo TIDCM MIAH Administration Carbidopa/Levodopa 1 combo 09/17/17 08:00 Sinemet *Cr* 25/100 - PO TIDCM MIAH Febuxostat 40 mg 09/12/17 10:00 09/14/17 09:30 Uloric - PO 40 mg DAILY M[facility] Administration Furosemide 40 mg 09/12/17 10:00 09/14/17 09:31 Lasix - PO 40 mg DAILY MIAH Administration Dextrose/Sodium Chloride 1,000 mls @ 42 mls/hr 09/14/17 12:30 D5-Ns - IV ASDIR MIAH Dextrose/Sodium Chloride 1,000 mls @ 43 mls/hr 09/14/17 12:19 D5-Ns - IV ASDIR MIAH Insulin Aspart 1 vial 09/13/17 22:00 09/14/17 11:52 Novolog Vial Sliding Scale - SQ 2 unit ACHS MIAH Administration Protocol Montelukast Sodium 10 mg 09/12/17 22:00 09/13/17 23:08 Singulair - PO 10 mg HS MIAH Administration Nebivolol 5 mg 09/13/17 19:45 09/14/17 09:31 Bystolic - PO 5 mg DAILY MIAH Administration Pantoprazole Sodium 40 mg 09/12/17 10:00 09/14/17 09:31 Protonix - PO 40 mg DAILY MIA[facility] Administration Rivastigmine Tartrate 1.5 mg 09/14/17 08:00 09/14/17 09:00 Exelon (Nf) - PO 1.5 mg BIDWM MIAH Administration Roflumilast 500 mcg 09/12/17 10:00 09/14/17 09:30 Daliresp - PO 500 mcg DAILY [facility] Administration Valsartan 160 mg 09/13/17 19:33 09/14/17 09:31 Diovan - PO 160 mg DAILY [facility] Administration AP: AP: Confusion Dementia T2DM Decrease D5NS at 42 cc/hr Novolog coverage when FS 200 HbA1c 9.0 If no contraindication pt maybe started on oral meds instead of Insulin to avoid hypoglycemia. Will f/u Problem List - Problems (1) Diabetes Code(s): E11.9 - TYPE 2 DIABETES MELLITUS WITHOUT COMPLICATIONS Qualifiers: Diabetes mellitus type: type 2 Diabetes mellitus complication status: with hyperglycemia Diabetes mellitus pyrotechnics press tender insulin use: without intermediate use Qualified Code(s): E11.65 - Type 2 diabetes mellitus with hyperglycemia (2) HTN (hypertension) Code(s): I10 - ESSENTIAL (PRIMARY) HYPERTENSION (3) Hallucinations, visual Code(s): R44.1 - VISUAL HALLUCINATIONS
[2017-09-14] MEDS ORDERED: INSULIN (NOVOLOG) ASPART 100 UNITS/ML 10ML VIAL ONE ×4 (12:41→20:41)
[2017-09-14] MEDS: MONTELUKAST NA 10 MG TABLET PO SCH (21:51)
[2017-09-14] MEDS: ATORVASTATIN CA 20 MG TABLET (FP) PO SCH (21:51)
[2017-09-15] MEDS: INSULIN SLIDING SCALE (NOVOLOG) 1 VIAL SQ SCH ×4 (06:12→22:09)
[2017-09-15] MEDS ORDERED: PT OWN MED DRAWER 7, Y5N ONE ×2 (09:30→20:53)
[2017-09-15] MEDS: amLODIPine BESYLATE 5 MG TABLET (FP) PO SCH (09:32)
[2017-09-15] MEDS: FEBUXOSTAT 40 MG TAB PO SCH (09:33)
[2017-09-15] MEDS: NEBIVOLOL 5 MG TABLET (FP) PO SCH (09:33)
[2017-09-15] MEDS: RIVASTIGMINE TARTRATE 1.5 MG CAPSULE PO SCH ×2 (09:34→17:00)
[2017-09-15] MEDS: FUROSEMIDE 40 MG TABLET (FP) PO SCH (09:34)
[2017-09-15] MEDS: DEXTROSE 5%-NORMAL SALINE 1,000 ML IV SCH (09:36)
[2017-09-15] MEDS: PANTOPRAZOLE 40 MG TABLET (FP) PO SCH (09:37)
[2017-09-15] MEDS: VALSARTAN 160 MG TABLET (UD) PO SCH (09:37)
--- NOTE | 2017-09-15 10:48 | PN ---
Progress Note (short form) - Note Progress Note: Awake, Sitting in chair in NAD Blood sugar improving No hypos Vital Signs Period Temp Pulse Resp BP Sys/Garcia Pulse Ox Last 24 Hr 97.3 F-97.9 F 54-63 18-20 117-147/64-86 97 PE: Awake, alert Neck: Supple, No JVD HEENT: EOMI Lungs: CTA CVS: S1S2 Abd: Benign EXt: No edema CMP Sodium 144 mmol/L (136-145) 09/12/17 09:15 Potassium 3.8 mmol/L (3.5-5.1) 09/12/17 09:15 Chloride 109 mmol/L (98-107) H 09/12/17 09:15 Carbon Dioxide 29 mmol/L (21-32) 09/12/17 09:15 Anion Gap 6 (8-16) L 09/12/17 09:15 BUN 29 mg/dL (7-18) H D 09/12/17 09:15 Creatinine 0.7 mg/dL (0.55-1.02) D 09/12/17 09:15 Creat Clearance w eGFR > 60 (>60) 09/12/17 09:15 POC Glucometer 147 UNITS (80-120) 09/15/17 06:11 Random Glucose 128 mg/dL (74-106) H D 09/12/17 09:15 Hemoglobin A1c % 9.0 % (4.8-6.0) H 09/12/17 09:15 Uric Acid 2.3 mg/dL (2.6-7.2) L 09/14/17 06:00 Calcium 9.2 mg/dL (8.5-10.1) 09/12/17 09:15 Total Bilirubin 0.3 mg/dL (0.2-1.0) D 09/12/17 09:15 AST 33 U/L (15-37) 09/12/17 09:15 ALT 32 U/L (12-78) 09/12/17 09:15 Alkaline Phosphatase 85 U/L (45-117) 09/12/17 09:15 Total Protein 6.5 g/dl (6.4-8.2) 09/12/17 09:15 Albumin 2.8 g/dl (3.4-5.0) L 09/12/17 09:15 Vitamin B12 1620 pg/ml (180-914) H 09/12/17 09:15 TSH 1.91 uIU/ml (0.358-3.74) 09/12/17 09:15 Current Medications Generic Name Dose Route Start Last Admin Trade Name Freq PRN Reason Stop Dose Admin Acetaminophen 650 mg 09/12/17 06:11 09/12/17 16:09 Tylenol - PO 650 mg Q6H PRN Administration FEVER OR PAIN Albuterol/Ipratropium 1 amp 09/12/17 06:11 09/12/17 23:15 Duoneb - NEB 1 amp Q6H PRN Administration SHORTNESS OF BREATH Amlodipine Besylate 5 mg 09/13/17 19:45 09/15/17 09:32 Norvasc - PO 5 mg DAILY MIAH Administration Atorvastatin Calcium 20 mg 09/12/17 22:00 09/14/17 21:51 Lipitor - PO 20 mg HS MIAH Administration Budesonide/Formoterol Fumarate 2 puff 09/12/17 10:00 09/14/17 21:51 Symbicort 160/4.5mcg - IH 2 inh BID MIAH Administration Carbidopa/Levodopa 0.5 combo 09/14/17 08:00 09/15/17 09:32 Sinemet *Cr* 25/100 - PO 09/16/17 17:31 0.5 combo TIDCM MIAH Administration Carbidopa/Levodopa 1 combo 09/17/17 08:00 Sinemet *Cr* 25/100 - PO TIDCM MIAH Febuxostat 40 mg 09/12/17 10:00 09/15/17 09:33 Uloric - PO 40 mg DAILY MIA[facility] Administration Furosemide 40 mg 09/12/17 10:00 09/15/17 09:34 Lasix - PO 40 mg DAILY [facility] Administration Dextrose/Sodium Chloride 1,000 mls @ 42 mls/hr 09/14/17 12:30 09/15/17 09:36 D5-Ns - IV 42 mls/hr ASDIR MIAH Administration Insulin Aspart 1 vial 09/13/17 22:00 09/15/17 06:12 Novolog Vial Sliding Scale - SQ Not Given ACHS MIAH Protocol Montelukast Sodium 10 mg 09/12/17 22:00 09/14/17 21:51 Singulair - PO 10 mg HS MIAH Administration Nebivolol 5 mg 09/13/17 19:45 09/15/17 09:33 Bystolic - PO 5 mg DAILY [facility] Administration Pantoprazole Sodium 40 mg 09/12/17 10:00 09/15/17 09:37 Protonix - PO 40 mg DAILY [facility] Administration Rivastigmine Tartrate 1.5 mg 09/14/17 08:00 09/15/17 09:34 Exelon (Nf) - PO 1.5 mg BIDWM MIAH Administration Roflumilast 500 mcg 09/12/17 10:00 09/14/17 09:30 Daliresp - PO 500 mcg DAILY [facility] Administration Valsartan 160 mg 09/13/17 19:33 09/15/17 09:37 Diovan - PO 160 mg DAILY [facility] Administration AP: Confusion Dementia T2DM D/C D5NS Novolog coverage when FS 200 HbA1c 9.0 Monitor BGM, if suboptimal after stopping D5NS, will add DPP4 she was on as outpt. Will f/u Problem List - Problems (1) Diabetes Code(s): E11.9 - TYPE 2 DIABETES MELLITUS WITHOUT COMPLICATIONS Qualifiers: Diabetes mellitus type: type 2 Diabetes mellitus complication status: with hyperglycemia Diabetes mellitus mold yard worker insulin use: without intermediate use Qualified Code(s): E11.65 - Type 2 diabetes mellitus with hyperglycemia (2) HTN (hypertension) Code(s): I10 - ESSENTIAL (PRIMARY) HYPERTENSION (3) Hallucinations, visual Code(s): R44.1 - VISUAL HALLUCINATIONS
--- NOTE | 2017-09-15 11:17 | PN ---
Progress Note, Physician Chief Complaint: Altered Mental Status History of Present Illness: NAD, head CT negative on D5 ns seen by endocrinology Novolog coverage for BGM >200 may be PO antihyperglycemics once BGM's stablized as recommended by endocrinology neurology consult appreciated - Current Medication List Current Medications: Active Medications Acetaminophen (Tylenol -) 650 mg PO Q6H PRN PRN Reason: FEVER OR PAIN Last Admin: 09/12/17 16:09 Dose: 650 mg Albuterol/Ipratropium (Duoneb -) 1 amp NEB Q6H PRN PRN Reason: SHORTNESS OF BREATH Last Admin: 09/12/17 23:15 Dose: 1 amp Amlodipine Besylate (Norvasc -) 5 mg PO DAILY [facility] Last Admin: 09/15/17 09:32 Dose: 5 mg Atorvastatin Calcium (Lipitor -) 20 mg PO HS [facility] Last Admin: 09/14/17 21:51 Dose: 20 mg Budesonide/Formoterol Fumarate (Symbicort 160/4.5mcg -) 2 puff IH BID [facility] Last Admin: 09/14/17 21:51 Dose: 2 inh Carbidopa/Levodopa (Sinemet *Cr* 25/100 -) 0.5 combo PO TIDCM MIAH Stop: 09/16/17 17:31 Last Admin: 09/15/17 09:32 Dose: 0.5 combo Carbidopa/Levodopa (Sinemet *Cr* 25/100 -) 1 combo PO TIDCM MIAH Febuxostat (Uloric -) 40 mg PO DAILY [facility] Last Admin: 09/15/17 09:33 Dose: 40 mg Furosemide (Lasix -) 40 mg PO DAILY [facility] Last Admin: 09/15/17 09:34 Dose: 40 mg Insulin Aspart (Novolog Vial Sliding Scale -) 1 vial SQ ACHS MIAH PRN Reason: Protocol Last Admin: 09/15/17 06:12 Dose: Not Given Montelukast Sodium (Singulair -) 10 mg PO HS [facility] Last Admin: 09/14/17 21:51 Dose: 10 mg Nebivolol (Bystolic -) 5 mg PO DAILY [facility] Last Admin: 09/15/17 09:33 Dose: 5 mg Pantoprazole Sodium (Protonix -) 40 mg PO DAILY [facility] Last Admin: 09/15/17 09:37 Dose: 40 mg Rivastigmine Tartrate (Exelon (Nf) -) 1.5 mg PO BIDWM [facility] Last Admin: 09/15/17 09:34 Dose: 1.5 mg Roflumilast (Daliresp -) 500 mcg PO DAILY [facility] Last Admin: 09/14/17 09:30 Dose: 500 mcg Valsartan (Diovan -) 160 mg PO DAILY [facility] Last Admin: 09/15/17 09:37 Dose: 160 mg - Objective Vital Signs: Vital Signs Temperature 97.8 F 09/15/17 06:22 Pulse Rate 63 09/15/17 06:22 Respiratory Rate 18 09/15/17 06:22 Blood Pressure 144/86 09/15/17 06:22 O2 Sat by Pulse Oximetry (%) 97 09/14/17 21:00 Constitutional: Yes: Well Nourished, No Distress, Calm Cardiovascular: Yes: Regular Rate and Rhythm Respiratory: Yes: Regular Musculoskeletal: Yes: Muscle Weakness Edema: No Peripheral Pulses WNL: Yes Neurological: Yes: Alert, Oriented Psychiatric: Yes: Alert, Oriented Labs: CBC, BMP 09/12/17 09:15 09/12/17 09:15 INR, PTT INR 0.97 (0.82-1.09) 09/11/17 20:05 Problem List - Problems (1) Coarse tremors Code(s): G25.2 - OTHER SPECIFIED FORMS OF TREMOR (2) Diabetes Assessment/Plan: -Endocrinology consult -short acting insulin for now -hold long acting insulin -d/c ivf Code(s): E11.9 - TYPE 2 DIABETES MELLITUS WITHOUT COMPLICATIONS Qualifiers: Diabetes mellitus type: type 2 Diabetes mellitus complication status: with hyperglycemia Diabetes mellitus termite control technician insulin use: without termite control technician use Qualified Code(s): E11.65 - Type 2 diabetes mellitus with hyperglycemia (3) Hallucinations, visual Assessment/Plan: seen by Neurology -CT head negative -medication regimen adjusted Code(s): R44.1 - VISUAL HALLUCINATIONS (4) HTN (hypertension) Assessment/Plan: Medications readjusted parameters placed Code(s): I10 - ESSENTIAL (PRIMARY) HYPERTENSION Assessment/Plan see problem list candidate for SNF as per Physical therapy
--- NOTE | 2017-09-15 11:58 | DS ---
Physical Examination Vital Signs: Vital Signs Temperature 97.8 F 09/15/17 06:22 Pulse Rate 63 09/15/17 06:22 Respiratory Rate 18 09/15/17 06:22 Blood Pressure 144/86 09/15/17 06:22 O2 Sat by Pulse Oximetry (%) 97 09/14/17 21:00 Constitutional: Yes: Well Nourished, No Distress, Calm Cardiovascular: Yes: Regular Rate and Rhythm Respiratory: Yes: Regular Gastrointestinal: Yes: Normal Bowel Sounds Musculoskeletal: Yes: Muscle Weakness Extremities: Yes: WNL Edema: No Peripheral Pulses WNL: Yes Neurological: Yes: Alert, Pre-Existing Deficit Psychiatric: Yes: Alert Labs: CBC, BMP 09/12/17 09:15 09/12/17 09:15 Discharge Summary Reason For Visit: DIABETES MELLITUS,COARSE TREMOR Current Active Problems Coarse tremors (Acute) Diabetes (Acute) Difficulty walking (Acute) HTN (hypertension) (Acute) Hallucinations, visual (Acute) Hospital Course: 87 year old female with pmhx of DM who presents to the ED accompanied by daughters with complaint of hallucinations and increased confusion. As per daughter the patient has been complaining of seeing a man with a gun or mice running around the room. The daughter states that she has noticed increased Parkinson-like symptoms such as tremors, delayed movement and increased difficulty walking. She reports weakness. PCP - Dr. Parsons Condition: Stable - Instructions Referrals: Adonis Rm MD [Primary Care Provider] - - Home Medications Comprehensive Discharge Medication List: Ambulatory Orders Albuterol Sulfate Inhaler - [Ventolin Hfa Inhaler -] 1 - 2 inh PO QID 09/12/17 Amlodipine Bes/Olmesartan Med [Amlodipine-Olmesartan 10-40 mg] 1 each PO DAILY 09/12/17 Atorvastatin Ca [Lipitor] 20 mg PO HS 09/12/17 Bimatoprost [Lumigan] 1 drop IO DAILY 09/12/17 Brimonidine Tartrate/Timolol [Combigan Eye Drops] 5 ml OP HS 09/12/17 Budesonide/Formeterol Fumarate [SYMBICORT 160/4.5mcg -] 1 inh PO DAILY 09/12/17 Febuxostat [Uloric] 40 mg PO DAILY 09/12/17 Furosemide [Lasix -] 20 mg PO DAILY 09/12/17 Icosapent Ethyl [Vascepa] 1 gm PO DAILY 09/12/17 Montelukast Na [Singulair -] 10 mg PO HS 09/12/17 Nebivolol HCl [Bystolic] 20 mg PO DAILY 09/12/17 Omeprazole 20 mg PO DAILY 09/12/17 Roflumilast [Daliresp] 500 mcg PO DAILY 09/12/17 Saxagliptin HCl [Onglyza] 5 mg PO DAILY 09/12/17 Umeclidinium [place] [Incruse Ellipta] 62.5 mcg IH PRN PRN 09/12/17
[2017-09-15] MEDS: ROFLUMILAST 500 MCG TABLET PO SCH (15:28)
[2017-09-15] MEDS: BUDESONIDE/FORMETEROL FUMARATE 160/4.5 mcg INHALER IH SCH ×2 (15:28→22:09)
[2017-09-15] MEDS ORDERED: INSULIN (NOVOLOG) ASPART 100 UNITS/ML 10ML VIAL ONE (20:53)
[2017-09-15] MEDS: ATORVASTATIN CA 20 MG TABLET (FP) PO SCH (22:09)
[2017-09-15] MEDS: MONTELUKAST NA 10 MG TABLET PO SCH (22:09)
[2017-09-16] MEDS: INSULIN SLIDING SCALE (NOVOLOG) 1 VIAL SQ SCH ×4 (06:42→21:22)
[2017-09-16] MEDS ORDERED: INSULIN (NOVOLOG) ASPART 100 UNITS/ML 10ML VIAL ONE (06:44)
[2017-09-16] MEDS ORDERED: PT OWN MED DRAWER 7, Y5N ONE ×3 (06:45→20:18)
[2017-09-16] MEDS: RIVASTIGMINE TARTRATE 1.5 MG CAPSULE PO SCH ×2 (08:44→17:31)
[2017-09-16] MEDS: NEBIVOLOL 5 MG TABLET (FP) PO SCH (10:42)
[2017-09-16] MEDS: amLODIPine BESYLATE 5 MG TABLET (FP) PO SCH (10:42)
[2017-09-16] MEDS: FUROSEMIDE 40 MG TABLET (FP) PO SCH (10:42)
[2017-09-16] MEDS: PANTOPRAZOLE 40 MG TABLET (FP) PO SCH (10:43)
[2017-09-16] MEDS: VALSARTAN 160 MG TABLET (UD) PO SCH (10:43)
[2017-09-16] MEDS: FEBUXOSTAT 40 MG TAB PO SCH (10:44)
[2017-09-16] MEDS: ROFLUMILAST 500 MCG TABLET PO SCH (10:45)
[2017-09-16] MEDS: ALBUTEROL SO4 2.5/IPRATROPIUM 0.5 INH SOL 3 ML VIAL.NEB. NEB PRN (11:05)
[2017-09-16] MEDS: BUDESONIDE/FORMETEROL FUMARATE 160/4.5 mcg INHALER IH SCH ×2 (11:52→21:19)
--- NOTE | 2017-09-16 12:58 | PN ---
Progress Note (short form) - Note Progress Note: Awake, Sitting in chair in NAD Apetite good Blood sugar up to 200s No hypos Vital Signs Period Temp Pulse Resp BP Sys/Garcia Pulse Ox Last 24 Hr 97.3 F-98.3 F 51-58 18-20 138-183/63-85 94-94 PE: Awake, alert Neck: Supple, No JVD HEENT: EOMI Lungs: CTA CVS: S1S2 Abd: Benign EXt: No edema CMP Sodium 144 mmol/L (136-145) 09/12/17 09:15 Potassium 3.8 mmol/L (3.5-5.1) 09/12/17 09:15 Chloride 109 mmol/L (98-107) H 09/12/17 09:15 Carbon Dioxide 29 mmol/L (21-32) 09/12/17 09:15 Anion Gap 6 (8-16) L 09/12/17 09:15 BUN 29 mg/dL (7-18) H D 09/12/17 09:15 Creatinine 0.7 mg/dL (0.55-1.02) D 09/12/17 09:15 Creat Clearance w eGFR > 60 (>60) 09/12/17 09:15 POC Glucometer 213 UNITS (80-120) 09/16/17 11:35 Random Glucose 128 mg/dL (74-106) H D 09/12/17 09:15 Hemoglobin A1c % 9.0 % (4.8-6.0) H 09/12/17 09:15 Uric Acid 2.3 mg/dL (2.6-7.2) L 09/14/17 06:00 Calcium 9.2 mg/dL (8.5-10.1) 09/12/17 09:15 Total Bilirubin 0.3 mg/dL (0.2-1.0) D 09/12/17 09:15 AST 33 U/L (15-37) 09/12/17 09:15 ALT 32 U/L (12-78) 09/12/17 09:15 Alkaline Phosphatase 85 U/L (45-117) 09/12/17 09:15 Total Protein 6.5 g/dl (6.4-8.2) 09/12/17 09:15 Albumin 2.8 g/dl (3.4-5.0) L 09/12/17 09:15 Vitamin B12 1620 pg/ml (180-914) H 09/12/17 09:15 TSH 1.91 uIU/ml (0.358-3.74) 09/12/17 09:15 Current Medications Generic Name Dose Route Start Last Admin Trade Name Freq PRN Reason Stop Dose Admin Acetaminophen 650 mg 09/12/17 06:11 09/12/17 16:09 Tylenol - PO 650 mg Q6H PRN Administration FEVER OR PAIN Albuterol/Ipratropium 1 amp 09/12/17 06:11 09/16/17 11:05 Duoneb - NEB 1 amp Q6H PRN Administration SHORTNESS OF BREATH Amlodipine Besylate 5 mg 09/13/17 19:45 09/16/17 10:42 Norvasc - PO 5 mg DAILY MIAH Administration Atorvastatin Calcium 20 mg 09/12/17 22:00 09/15/17 22:09 Lipitor - PO 20 mg HS MIAH Administration Budesonide/Formoterol Fumarate 2 puff 09/12/17 10:00 09/15/17 22:09 Symbicort 160/4.5mcg - IH 2 inh BID MIAH Administration Carbidopa/Levodopa 0.5 combo 09/14/17 08:00 09/16/17 11:34 Sinemet *Cr* 25/100 - PO 09/16/17 17:31 0.5 combo TIDCM MIAH Administration Carbidopa/Levodopa 1 combo 09/17/17 08:00 Sinemet *Cr* 25/100 - PO TIDCM MIAH Febuxostat 40 mg 09/12/17 10:00 09/16/17 10:44 Uloric - PO 40 mg DAILY MIAH Administration Furosemide 40 mg 09/12/17 10:00 09/16/17 10:42 Lasix - PO 40 mg DAILY MIAH Administration Insulin Aspart 1 vial 09/13/17 22:00 09/16/17 11:36 Novolog Vial Sliding Scale - SQ 2 unit ACHS MIAH Administration Protocol Montelukast Sodium 10 mg 09/12/17 22:00 09/15/17 22:09 Singulair - PO 10 mg HS MIAH Administration Nebivolol 5 mg 09/13/17 19:45 09/16/17 10:42 Bystolic - PO 5 mg DAILY MIAH Administration Pantoprazole Sodium 40 mg 09/12/17 10:00 09/16/17 10:43 Protonix - PO 40 mg DAILY MIAH Administration Rivastigmine Tartrate 1.5 mg 09/14/17 08:00 09/16/17 08:44 Exelon (Nf) - PO 1.5 mg BIDWM MIAH Administration Roflumilast 500 mcg 09/12/17 10:00 09/16/17 10:45 Daliresp - PO 500 mcg DAILY MIAH Administration Valsartan 160 mg 09/13/17 19:33 09/16/17 10:43 Diovan - PO 160 mg DAILY MIA[facility] Administration AP: Confusion Dementia T2DM D/C D5NS Novolog coverage when FS 200 Add Januvia 50mg Qd HbA1c 9.0 Will f/u Problem List - Problems (1) Diabetes Code(s): E11.9 - TYPE 2 DIABETES MELLITUS WITHOUT COMPLICATIONS Qualifiers: Diabetes mellitus type: type 2 Diabetes mellitus complication status: with hyperglycemia Diabetes mellitus fdc insulin use: without termite technician use Qualified Code(s): E11.65 - Type 2 diabetes mellitus with hyperglycemia (2) HTN (hypertension) Code(s): I10 - ESSENTIAL (PRIMARY) HYPERTENSION (3) Hallucinations, visual Code(s): R44.1 - VISUAL HALLUCINATIONS
--- NOTE | 2017-09-16 16:02 | PN ---
Progress Note, Physician Chief Complaint: AWAKE ALRT AWAITING PLACEMENT TO SNF THIS IS MY FIRST ENCOUNTER WITH THIS PATIENT RECORDS AND NOTES REVIEWED - Current Medication List Current Medications: Active Medications Acetaminophen (Tylenol -) 650 mg PO Q6H PRN PRN Reason: FEVER OR PAIN Last Admin: 09/12/17 16:09 Dose: 650 mg Albuterol/Ipratropium (Duoneb -) 1 amp NEB Q6H PRN PRN Reason: SHORTNESS OF BREATH Last Admin: 09/16/17 11:05 Dose: 1 amp Amlodipine Besylate (Norvasc -) 5 mg PO DAILY [facility] Last Admin: 09/16/17 10:42 Dose: 5 mg Atorvastatin Calcium (Lipitor -) 20 mg PO HS [facility] Last Admin: 09/15/17 22:09 Dose: 20 mg Budesonide/Formoterol Fumarate (Symbicort 160/4.5mcg -) 2 puff IH BID [facility] Last Admin: 09/15/17 22:09 Dose: 2 inh Carbidopa/Levodopa (Sinemet *Cr* 25/100 -) 0.5 combo PO TIDCM [facility] Stop: 09/16/17 17:31 Last Admin: 09/16/17 11:34 Dose: 0.5 combo Carbidopa/Levodopa (Sinemet *Cr* 25/100 -) 1 combo PO TIDCM [facility] Febuxostat (Uloric -) 40 mg PO DAILY [facility] Last Admin: 09/16/17 10:44 Dose: 40 mg Furosemide (Lasix -) 40 mg PO DAILY [facility] Last Admin: 09/16/17 10:42 Dose: 40 mg Insulin Aspart (Novolog Vial Sliding Scale -) 1 vial SQ ACHS [facility] PRN Reason: Protocol Last Admin: 09/16/17 11:36 Dose: 2 unit Montelukast Sodium (Singulair -) 10 mg PO HS [facility] Last Admin: 09/15/17 22:09 Dose: 10 mg Nebivolol (Bystolic -) 5 mg PO DAILY [facility] Last Admin: 09/16/17 10:42 Dose: 5 mg Pantoprazole Sodium (Protonix -) 40 mg PO DAILY [facility] Last Admin: 09/16/17 10:43 Dose: 40 mg Rivastigmine Tartrate (Exelon (Nf) -) 1.5 mg PO BIDWM [facility] Last Admin: 09/16/17 08:44 Dose: 1.5 mg Roflumilast (Daliresp -) 500 mcg PO DAILY [facility] Last Admin: 09/16/17 10:45 Dose: 500 mcg Sitagliptin Phosphate (Januvia -) 50 mg PO DAILY@0700 [facility] Valsartan (Diovan -) 160 mg PO DAILY [facility] Last Admin: 09/16/17 10:43 Dose: 160 mg - Objective Vital Signs: Vital Signs Temperature 98 F 09/16/17 09:00 Pulse Rate 57 L 09/16/17 09:00 Respiratory Rate 20 09/16/17 09:00 Blood Pressure 139/71 09/16/17 09:00 O2 Sat by Pulse Oximetry (%) 94 L 09/16/17 09:00 Constitutional: Yes: Mild Distress Eyes: Yes: WNL HENT: Yes: WNL Neck: Yes: WNL Cardiovascular: Yes: WNL Respiratory: Yes: WNL Gastrointestinal: Yes: WNL Genitourinary: Yes: WNL Musculoskeletal: Yes: Muscle Weakness Extremities: Yes: WNL Edema: No Peripheral Pulses WNL: Yes Integumentary: Yes: WNL Wound/Incision: Yes: Clean/Dry Neurological: Yes: Pre-Existing Deficit ...Motor Strength: LLE, RLE Psychiatric: Yes: Other Labs: CBC, BMP 09/12/17 09:15 09/12/17 09:15 INR, PTT INR 0.97 (0.82-1.09) 09/11/17 20:05 Problem List - Problems (1) Coarse tremors Code(s): G25.2 - OTHER SPECIFIED FORMS OF TREMOR (2) Diabetes Code(s): E11.9 - TYPE 2 DIABETES MELLITUS WITHOUT COMPLICATIONS Qualifiers: Diabetes mellitus type: type 2 Diabetes mellitus complication status: with hyperglycemia Diabetes mellitus usp insulin use: without usp use Qualified Code(s): E11.65 - Type 2 diabetes mellitus with hyperglycemia (3) Difficulty walking Code(s): R26.2 - DIFFICULTY IN WALKING, NOT ELSEWHERE CLASSIFIED (4) HTN (hypertension) Code(s): I10 - ESSENTIAL (PRIMARY) HYPERTENSION Assessment/Plan PT EVAL APPRECIATED OOB TO CHAIR SNF WHEN AUTH COMPLETE
--- NOTE | 2017-09-16 16:06 | PN ---
Progress Note, Physician - Current Medication List Current Medications: Active Medications Acetaminophen (Tylenol -) 650 mg PO Q6H PRN PRN Reason: FEVER OR PAIN Last Admin: 09/12/17 16:09 Dose: 650 mg Albuterol/Ipratropium (Duoneb -) 1 amp NEB Q6H PRN PRN Reason: SHORTNESS OF BREATH Last Admin: 09/16/17 11:05 Dose: 1 amp Amlodipine Besylate (Norvasc -) 5 mg PO DAILY [facility] Last Admin: 09/16/17 10:42 Dose: 5 mg Atorvastatin Calcium (Lipitor -) 20 mg PO HS [facility] Last Admin: 09/15/17 22:09 Dose: 20 mg Budesonide/Formoterol Fumarate (Symbicort 160/4.5mcg -) 2 puff IH BID [facility] Last Admin: 09/15/17 22:09 Dose: 2 inh Carbidopa/Levodopa (Sinemet *Cr* 25/100 -) 0.5 combo PO TIDCM [facility] Stop: 09/16/17 17:31 Last Admin: 09/16/17 11:34 Dose: 0.5 combo Carbidopa/Levodopa (Sinemet *Cr* 25/100 -) 1 combo PO TIDCM [facility] Febuxostat (Uloric -) 40 mg PO DAILY [facility] Last Admin: 09/16/17 10:44 Dose: 40 mg Furosemide (Lasix -) 40 mg PO DAILY [facility] Last Admin: 09/16/17 10:42 Dose: 40 mg Insulin Aspart (Novolog Vial Sliding Scale -) 1 vial SQ ACHS [facility] PRN Reason: Protocol Last Admin: 09/16/17 11:36 Dose: 2 unit Montelukast Sodium (Singulair -) 10 mg PO HS [facility] Last Admin: 09/15/17 22:09 Dose: 10 mg Nebivolol (Bystolic -) 5 mg PO DAILY [facility] Last Admin: 09/16/17 10:42 Dose: 5 mg Pantoprazole Sodium (Protonix -) 40 mg PO DAILY [facility] Last Admin: 09/16/17 10:43 Dose: 40 mg Rivastigmine Tartrate (Exelon (Nf) -) 1.5 mg PO BIDWM [facility] Last Admin: 09/16/17 08:44 Dose: 1.5 mg Roflumilast (Daliresp -) 500 mcg PO DAILY [facility] Last Admin: 09/16/17 10:45 Dose: 500 mcg Sitagliptin Phosphate (Januvia -) 50 mg PO DAILY@0700 [facility] Valsartan (Diovan -) 160 mg PO DAILY [facility] Last Admin: 09/16/17 10:43 Dose: 160 mg - Objective Vital Signs: Vital Signs Temperature 98 F 09/16/17 09:00 Pulse Rate 57 L 09/16/17 09:00 Respiratory Rate 20 09/16/17 09:00 Blood Pressure 139/71 09/16/17 09:00 O2 Sat by Pulse Oximetry (%) 94 L 09/16/17 09:00 Labs: CBC, BMP 09/12/17 09:15 09/12/17 09:15 INR, PTT INR 0.97 (0.82-1.09) 09/11/17 20:05
[2017-09-16] MEDS: MONTELUKAST NA 10 MG TABLET PO SCH (21:19)
[2017-09-16] MEDS: ATORVASTATIN CA 20 MG TABLET (FP) PO SCH (21:19)
[2017-09-17] MEDS: INSULIN SLIDING SCALE (NOVOLOG) 1 VIAL SQ SCH ×4 (06:39→21:09)
[2017-09-17] MEDS: sitaGLIPtin PHOSPHATE 50 MG TABLET PO SCH (06:41)
[2017-09-17] MEDS: RIVASTIGMINE TARTRATE 1.5 MG CAPSULE PO SCH ×2 (08:44→18:03)
[2017-09-17] MEDS ORDERED: PT OWN MED DRAWER 7, Y5N ONE ×2 (09:35→20:35)
[2017-09-17] MEDS: amLODIPine BESYLATE 5 MG TABLET (FP) PO SCH (09:41)
[2017-09-17] MEDS: NEBIVOLOL 5 MG TABLET (FP) PO SCH (09:41)
[2017-09-17] MEDS: PANTOPRAZOLE 40 MG TABLET (FP) PO SCH (09:41)
[2017-09-17] MEDS: VALSARTAN 160 MG TABLET (UD) PO SCH (09:41)
[2017-09-17] MEDS: FUROSEMIDE 40 MG TABLET (FP) PO SCH (09:41)
[2017-09-17] MEDS: BUDESONIDE/FORMETEROL FUMARATE 160/4.5 mcg INHALER IH SCH ×2 (09:41→21:20)
[2017-09-17] MEDS: FEBUXOSTAT 40 MG TAB PO SCH (09:42)
[2017-09-17] MEDS: ROFLUMILAST 500 MCG TABLET PO SCH (09:42)
--- NOTE | 2017-09-17 15:05 | PN ---
Progress Note (short form) - Note Progress Note: PATIENT SEEN COMFORTABLE AWAITING AUTH FOR SNF PLACEMENT CONTINUE CURRENT MEDICAL CARE AND MEDICATIONS Problem List - Problems (1) Coarse tremors Code(s): G25.2 - OTHER SPECIFIED FORMS OF TREMOR (2) Diabetes Code(s): E11.9 - TYPE 2 DIABETES MELLITUS WITHOUT COMPLICATIONS Qualifiers: Diabetes mellitus type: type 2 Diabetes mellitus complication status: with hyperglycemia Diabetes mellitus lobsterman insulin use: without lobsterman use Qualified Code(s): E11.65 - Type 2 diabetes mellitus with hyperglycemia (3) Difficulty walking Code(s): R26.2 - DIFFICULTY IN WALKING, NOT ELSEWHERE CLASSIFIED (4) HTN (hypertension) Code(s): I10 - ESSENTIAL (PRIMARY) HYPERTENSION
[2017-09-17] MEDS ORDERED: INSULIN (NOVOLOG) ASPART 100 UNITS/ML 10ML VIAL ONE (20:35)
[2017-09-17] MEDS: MONTELUKAST NA 10 MG TABLET PO SCH (21:19)
[2017-09-17] MEDS: ATORVASTATIN CA 20 MG TABLET (FP) PO SCH (21:19)
[2017-09-18] MEDS: sitaGLIPtin PHOSPHATE 50 MG TABLET PO SCH (06:41)
[2017-09-18] MEDS: INSULIN SLIDING SCALE (NOVOLOG) 1 VIAL SQ SCH ×4 (06:59→20:59)
[2017-09-18] MEDS ORDERED: INSULIN (NOVOLOG) ASPART 100 UNITS/ML 10ML VIAL ONE ×2 (07:01→20:04)
[2017-09-18] MEDS ORDERED: PT OWN MED DRAWER 7, Y5N ONE ×4 (10:34→20:05)
[2017-09-18] MEDS: amLODIPine BESYLATE 5 MG TABLET (FP) PO SCH (10:35)
[2017-09-18] MEDS: FUROSEMIDE 40 MG TABLET (FP) PO SCH (10:35)
[2017-09-18] MEDS: NEBIVOLOL 5 MG TABLET (FP) PO SCH (10:35)
[2017-09-18] MEDS: VALSARTAN 160 MG TABLET (UD) PO SCH (10:35)
[2017-09-18] MEDS: BUDESONIDE/FORMETEROL FUMARATE 160/4.5 mcg INHALER IH SCH ×2 (10:36→21:08)
[2017-09-18] MEDS: PANTOPRAZOLE 40 MG TABLET (FP) PO SCH (10:36)
[2017-09-18] MEDS: FEBUXOSTAT 40 MG TAB PO SCH (10:37)
[2017-09-18] MEDS: RIVASTIGMINE TARTRATE 1.5 MG CAPSULE PO SCH ×2 (10:37→17:42)
[2017-09-18] MEDS: ROFLUMILAST 500 MCG TABLET PO SCH (10:37)
[2017-09-18] MEDS: ATORVASTATIN CA 20 MG TABLET (FP) PO SCH (20:59)
[2017-09-18] MEDS: MONTELUKAST NA 10 MG TABLET PO SCH (20:59)
--- NOTE | 2017-09-18 23:12 | PN ---
Progress Note (short form) - Note Progress Note: PATIENT SEEN AND EXAMINED NAD AWAITING DISCHARGE TOMORROW Problem List - Problems (1) Coarse tremors Code(s): G25.2 - OTHER SPECIFIED FORMS OF TREMOR (2) Diabetes Code(s): E11.9 - TYPE 2 DIABETES MELLITUS WITHOUT COMPLICATIONS Qualifiers: Diabetes mellitus type: type 2 Diabetes mellitus complication status: with hyperglycemia Diabetes mellitus local company intermodal truck driver insulin use: without local company intermodal truck driver use Qualified Code(s): E11.65 - Type 2 diabetes mellitus with hyperglycemia (3) Difficulty walking Code(s): R26.2 - DIFFICULTY IN WALKING, NOT ELSEWHERE CLASSIFIED (4) HTN (hypertension) Code(s): I10 - ESSENTIAL (PRIMARY) HYPERTENSION
[2017-09-19] MEDS: sitaGLIPtin PHOSPHATE 50 MG TABLET PO SCH (06:15)
[2017-09-19] MEDS: INSULIN SLIDING SCALE (NOVOLOG) 1 VIAL SQ SCH ×4 (06:17→21:31)
[2017-09-19] MEDS ORDERED: PT OWN MED DRAWER 7, Y5N ONE ×4 (08:14→17:13)
[2017-09-19] MEDS: NEBIVOLOL 5 MG TABLET (FP) PO SCH (09:07)
[2017-09-19] MEDS: FUROSEMIDE 40 MG TABLET (FP) PO SCH (09:07)
[2017-09-19] MEDS: amLODIPine BESYLATE 5 MG TABLET (FP) PO SCH (09:07)
[2017-09-19] MEDS: BUDESONIDE/FORMETEROL FUMARATE 160/4.5 mcg INHALER IH SCH ×2 (09:08→21:31)
[2017-09-19] MEDS: RIVASTIGMINE TARTRATE 1.5 MG CAPSULE PO SCH ×2 (09:08→17:26)
[2017-09-19] MEDS: VALSARTAN 160 MG TABLET (UD) PO SCH (09:08)
[2017-09-19] MEDS: PANTOPRAZOLE 40 MG TABLET (FP) PO SCH (09:08)
[2017-09-19] MEDS: ROFLUMILAST 500 MCG TABLET PO SCH (09:09)
[2017-09-19] MEDS: FEBUXOSTAT 40 MG TAB PO SCH (09:09)
[2017-09-19] MEDS ORDERED: PNEUMOC 13-VAL CONJ-DIP CRM/PF 0.5 ML DISP.SYRIN IM ONE (09:57)
--- NOTE | 2017-09-19 10:35 | PN ---
Progress Note, Physician Chief Complaint: Altered Mental Status History of Present Illness: NAD, head CT negative seen by endocrinology Novolog coverage for BGM >200 PO antihyperglycemics outpatient neurology consult appreciated - Current Medication List Current Medications: Active Medications Acetaminophen (Tylenol -) 650 mg PO Q6H PRN PRN Reason: FEVER OR PAIN Last Admin: 09/12/17 16:09 Dose: 650 mg Amlodipine Besylate (Norvasc -) 5 mg PO DAILY [facility] Last Admin: 09/19/17 09:07 Dose: 5 mg Atorvastatin Calcium (Lipitor -) 20 mg PO HS [facility] Last Admin: 09/18/17 20:59 Dose: 20 mg Budesonide/Formoterol Fumarate (Symbicort 160/4.5mcg -) 2 puff IH BID [facility] Last Admin: 09/19/17 09:08 Dose: 2 inh Carbidopa/Levodopa (Sinemet *Cr* 25/100 -) 1 combo PO TIDCM [facility] Last Admin: 09/19/17 09:04 Dose: 1 combo Febuxostat (Uloric -) 40 mg PO DAILY [facility] Last Admin: 09/19/17 09:09 Dose: 40 mg Furosemide (Lasix -) 40 mg PO DAILY [facility] Last Admin: 09/19/17 09:07 Dose: 40 mg Insulin Aspart (Novolog Vial Sliding Scale -) 1 vial SQ ACHS [facility] PRN Reason: Protocol Last Admin: 09/19/17 06:17 Dose: Not Given Montelukast Sodium (Singulair -) 10 mg PO HS [facility] Last Admin: 09/18/17 20:59 Dose: 10 mg Nebivolol (Bystolic -) 5 mg PO DAILY [facility] Last Admin: 09/19/17 09:07 Dose: 5 mg Pantoprazole Sodium (Protonix -) 40 mg PO DAILY [facility] Last Admin: 09/19/17 09:08 Dose: 40 mg Pneumococcal 13-Valent Conj Vacc (Prevnar 13 Syringe -) 0.5 ml IM .ONCE ONE Stop: 09/19/17 09:58 Rivastigmine Tartrate (Exelon (Nf) -) 1.5 mg PO BIDWM [facility] Last Admin: 09/19/17 09:08 Dose: 1.5 mg Roflumilast (Daliresp -) 500 mcg PO DAILY [facility] Last Admin: 09/19/17 09:09 Dose: 500 mcg Sitagliptin Phosphate (Januvia -) 50 mg PO DAILY@0700 [facility] Last Admin: 09/19/17 06:15 Dose: 50 mg Valsartan (Diovan -) 160 mg PO DAILY [facility] Last Admin: 09/19/17 09:08 Dose: 160 mg - Objective Vital Signs: Vital Signs Temperature 98.3 F 09/19/17 09:31 Pulse Rate 63 09/19/17 09:31 Respiratory Rate 18 09/19/17 09:31 Blood Pressure 154/73 09/19/17 09:31 O2 Sat by Pulse Oximetry (%) 93 L 09/18/17 21:00 Constitutional: Yes: Well Nourished, No Distress, Calm Cardiovascular: Yes: Regular Rate and Rhythm Respiratory: Yes: Regular Musculoskeletal: Yes: WNL Extremities: Yes: WNL Edema: No Peripheral Pulses WNL: Yes Neurological: Yes: Alert Psychiatric: Yes: Alert Labs: CBC, BMP 09/12/17 09:15 09/12/17 09:15 INR, PTT INR 0.97 (0.82-1.09) 09/11/17 20:05 Problem List - Problems (1) Coarse tremors Code(s): G25.2 - OTHER SPECIFIED FORMS OF TREMOR (2) Diabetes Assessment/Plan: -Endocrinology consult -short acting insulin for now -hold long acting insulin -PO hypoglycemics outpatient Code(s): E11.9 - TYPE 2 DIABETES MELLITUS WITHOUT COMPLICATIONS Qualifiers: Diabetes mellitus type: type 2 Diabetes mellitus complication status: with hyperglycemia Diabetes mellitus regional intermodal truck driver insulin use: without jail use Qualified Code(s): E11.65 - Type 2 diabetes mellitus with hyperglycemia (3) Hallucinations, visual Assessment/Plan: seen by Neurology -CT head negative -medication regimen adjusted Code(s): R44.1 - VISUAL HALLUCINATIONS (4) HTN (hypertension) Assessment/Plan: Medications readjusted parameters placed Code(s): I10 - ESSENTIAL (PRIMARY) HYPERTENSION Assessment/Plan see problem list Physical therapy Awaiting discharge
--- NOTE | 2017-09-19 14:24 | PN ---
Progress Note (short form) - Note Progress Note: Awake, alert denies any complaints Blood sugar up to 200s No hypos Vital Signs Period Temp Pulse Resp BP Sys/Garcia Pulse Ox Last 24 Hr 97.8 F-98.3 F 58-64 18-20 123-154/52-73 93-95 PE: Awake, alert Neck: Supple, No JVD HEENT: EOMI Lungs: CTA CVS: S1S2 Abd: Benign EXt: No edema CMP Sodium 144 mmol/L (136-145) 09/12/17 09:15 Potassium 3.8 mmol/L (3.5-5.1) 09/12/17 09:15 Chloride 109 mmol/L (98-107) H 09/12/17 09:15 Carbon Dioxide 29 mmol/L (21-32) 09/12/17 09:15 Anion Gap 6 (8-16) L 09/12/17 09:15 BUN 29 mg/dL (7-18) H D 09/12/17 09:15 Creatinine 0.7 mg/dL (0.55-1.02) D 09/12/17 09:15 Creat Clearance w eGFR > 60 (>60) 09/12/17 09:15 POC Glucometer 170 UNITS (80-120) 09/19/17 11:46 Random Glucose 128 mg/dL (74-106) H D 09/12/17 09:15 Hemoglobin A1c % 9.0 % (4.8-6.0) H 09/12/17 09:15 Uric Acid 2.3 mg/dL (2.6-7.2) L 09/14/17 06:00 Calcium 9.2 mg/dL (8.5-10.1) 09/12/17 09:15 Total Bilirubin 0.3 mg/dL (0.2-1.0) D 09/12/17 09:15 AST 33 U/L (15-37) 09/12/17 09:15 ALT 32 U/L (12-78) 09/12/17 09:15 Alkaline Phosphatase 85 U/L (45-117) 09/12/17 09:15 Total Protein 6.5 g/dl (6.4-8.2) 09/12/17 09:15 Albumin 2.8 g/dl (3.4-5.0) L 09/12/17 09:15 Vitamin B12 1620 pg/ml (180-914) H 09/12/17 09:15 TSH 1.91 uIU/ml (0.358-3.74) 09/12/17 09:15 Current Medications Generic Name Dose Route Start Last Admin Trade Name Freq PRN Reason Stop Dose Admin Acetaminophen 650 mg 09/12/17 06:11 09/12/17 16:09 Tylenol - PO 650 mg Q6H PRN Administration FEVER OR PAIN Amlodipine Besylate 5 mg 09/13/17 19:45 09/19/17 09:07 Norvasc - PO 5 mg DAILY [facility] Administration Atorvastatin Calcium 20 mg 09/12/17 22:00 09/18/17 20:59 Lipitor - PO 20 mg HS [facility] Administration Budesonide/Formoterol Fumarate 2 puff 09/12/17 10:00 09/19/17 09:08 Symbicort 160/4.5mcg - IH 2 inh BID [facility] Administration Carbidopa/Levodopa 1 combo 09/17/17 08:00 09/19/17 13:08 Sinemet *Cr* 25/100 - PO 1 combo TIDCM [facility] Administration Febuxostat 40 mg 09/12/17 10:00 09/19/17 09:09 Uloric - PO 40 mg DAILY [facility] Administration Furosemide 40 mg 09/12/17 10:00 09/19/17 09:07 Lasix - PO 40 mg DAILY [facility] Administration Insulin Aspart 1 vial 09/13/17 22:00 09/19/17 11:49 Novolog Vial Sliding Scale - SQ Not Given ACHS [facility] Protocol Montelukast Sodium 10 mg 09/12/17 22:00 09/18/17 20:59 Singulair - PO 10 mg HS [facility] Administration Nebivolol 5 mg 09/13/17 19:45 09/19/17 09:07 Bystolic - PO 5 mg DAILY [facility] Administration Pantoprazole Sodium 40 mg 09/12/17 10:00 09/19/17 09:08 Protonix - PO 40 mg DAILY [facility] Administration Rivastigmine Tartrate 1.5 mg 09/14/17 08:00 09/19/17 09:08 Exelon (Nf) - PO 1.5 mg BIDWM [facility] Administration Roflumilast 500 mcg 09/12/17 10:00 09/19/17 09:09 Daliresp - PO 500 mcg DAILY [facility] Administration Sitagliptin Phosphate 50 mg 09/17/17 07:00 09/19/17 06:15 Januvia - PO 50 mg DAILY@0700 [facility] Administration Valsartan 160 mg 09/13/17 19:33 09/19/17 09:08 Diovan - PO 160 mg DAILY [facility] Administration AP: Confusion Dementia T2DM Off D5NS Novolog coverage when FS 200 On Januvia 50mg Qd Check CMP, If creatinine normal would increase Januvia to 100mg QD and add Metformin 500mg BID with food HbA1c 9.0 Will f/u Problem List - Problems (1) Diabetes Code(s): E11.9 - TYPE 2 DIABETES MELLITUS WITHOUT COMPLICATIONS Qualifiers: Diabetes mellitus type: type 2 Diabetes mellitus complication status: with hyperglycemia 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
[2017-09-19] MEDS ORDERED: INSULIN (NOVOLOG) ASPART 100 UNITS/ML 10ML VIAL ONE ×2 (17:12→20:27)
[2017-09-19] MEDS: ATORVASTATIN CA 20 MG TABLET (FP) PO SCH (21:31)
[2017-09-19] MEDS: MONTELUKAST NA 10 MG TABLET PO SCH (21:31)
[2017-09-20] MEDS: INSULIN SLIDING SCALE (NOVOLOG) 1 VIAL SQ SCH ×4 (06:16→21:24)
[2017-09-20] MEDS: sitaGLIPtin PHOSPHATE 50 MG TABLET PO SCH (06:16)
[2017-09-20] MEDS ORDERED: PT OWN MED DRAWER 7, Y5N ONE ×4 (08:04→15:51)
[2017-09-20 08:10] LABS: ALBUMIN 2.7 g/dl (3.4-5.0); ALK PHOS 92 U/L (45-117); ANION GAP 6 (8-16); BILIRUBIN,TOTAL 0.6 mg/dL (0.2-1.0); BLOOD UREA NITROGEN 26 mg/dL (7-18); CALCIUM 8.6 mg/dL (8.5-10.1); CHLORIDE 102 mmol/L (98-107); CO2 31 mmol/L (21-32); CREATININE 1.1 mg/dL (0.55-1.02); GLUCOSE,RANDOM 148 mg/dL (74-106); POTASSIUM 3.9 mmol/L (3.5-5.1); SGOT/AST 18 U/L (15-37); SGPT/ALT 9 U/L (12-78); SODIUM 139 mmol/L (136-145); TOT PROT 6.5 g/dl (6.4-8.2)
[2017-09-20] MEDS: amLODIPine BESYLATE 5 MG TABLET (FP) PO SCH (09:18)
[2017-09-20] MEDS: NEBIVOLOL 5 MG TABLET (FP) PO SCH (09:18)
[2017-09-20] MEDS: VALSARTAN 160 MG TABLET (UD) PO SCH (09:18)
[2017-09-20] MEDS: FUROSEMIDE 40 MG TABLET (FP) PO SCH (09:18)
[2017-09-20] MEDS: PANTOPRAZOLE 40 MG TABLET (FP) PO SCH (09:18)
[2017-09-20] MEDS: ROFLUMILAST 500 MCG TABLET PO SCH (09:19)
[2017-09-20] MEDS: RIVASTIGMINE TARTRATE 1.5 MG CAPSULE PO SCH ×2 (09:19→16:51)
[2017-09-20] MEDS: FEBUXOSTAT 40 MG TAB PO SCH (09:20)
[2017-09-20] MEDS: BUDESONIDE/FORMETEROL FUMARATE 160/4.5 mcg INHALER IH SCH ×2 (09:20→21:24)
--- NOTE | 2017-09-20 11:28 | PN ---
Progress Note, Physician Chief Complaint: Altered Mental Status History of Present Illness: NAD, head CT negative seen by endocrinology Novolog coverage for BGM >200 PO antihyperglycemics outpatient neurology consult appreciated - Current Medication List Current Medications: Active Medications Acetaminophen (Tylenol -) 650 mg PO Q6H PRN PRN Reason: FEVER OR PAIN Last Admin: 09/12/17 16:09 Dose: 650 mg Amlodipine Besylate (Norvasc -) 5 mg PO DAILY [facility] Last Admin: 09/20/17 09:18 Dose: 5 mg Atorvastatin Calcium (Lipitor -) 20 mg PO HS [facility] Last Admin: 09/19/17 21:31 Dose: 20 mg Budesonide/Formoterol Fumarate (Symbicort 160/4.5mcg -) 2 puff IH BID [facility] Last Admin: 09/20/17 09:20 Dose: 2 inh Carbidopa/Levodopa (Sinemet *Cr* 25/100 -) 1 combo PO TIDCM [facility] Last Admin: 09/20/17 08:03 Dose: 1 combo Febuxostat (Uloric -) 40 mg PO DAILY [facility] Last Admin: 09/20/17 09:20 Dose: 40 mg Furosemide (Lasix -) 40 mg PO DAILY [facility] Last Admin: 09/20/17 09:18 Dose: 40 mg Insulin Aspart (Novolog Vial Sliding Scale -) 1 vial SQ ACHS [facility] PRN Reason: Protocol Last Admin: 09/20/17 06:16 Dose: Not Given Montelukast Sodium (Singulair -) 10 mg PO HS [facility] Last Admin: 09/19/17 21:31 Dose: 10 mg Nebivolol (Bystolic -) 5 mg PO DAILY [facility] Last Admin: 09/20/17 09:18 Dose: 5 mg Pantoprazole Sodium (Protonix -) 40 mg PO DAILY [facility] Last Admin: 09/20/17 09:18 Dose: 40 mg Rivastigmine Tartrate (Exelon (Nf) -) 1.5 mg PO BIDWM [facility] Last Admin: 09/20/17 09:19 Dose: 1.5 mg Roflumilast (Daliresp -) 500 mcg PO DAILY [facility] Last Admin: 09/20/17 09:19 Dose: 500 mcg Sitagliptin Phosphate (Januvia -) 50 mg PO DAILY@0700 [facility] Last Admin: 09/20/17 06:16 Dose: 50 mg Valsartan (Diovan -) 160 mg PO DAILY [facility] Last Admin: 09/20/17 09:18 Dose: 160 mg - Objective Vital Signs: Vital Signs Temperature 97.4 F L 09/20/17 05:35 Pulse Rate 69 09/20/17 08:45 Respiratory Rate 20 09/20/17 08:45 Blood Pressure 125/82 09/20/17 08:45 O2 Sat by Pulse Oximetry (%) 93 L 09/19/17 21:00 Constitutional: Yes: Well Nourished, No Distress, Calm Cardiovascular: Yes: Regular Rate and Rhythm Respiratory: Yes: Regular Musculoskeletal: Yes: WNL Extremities: Yes: WNL Edema: No Peripheral Pulses WNL: Yes Neurological: Yes: Alert, Pre-Existing Deficit Psychiatric: Yes: Alert Labs: CBC, BMP 09/12/17 09:15 09/20/17 06:00 INR, PTT INR 0.97 (0.82-1.09) 09/11/17 20:05 Problem List - Problems (1) Coarse tremors Code(s): G25.2 - OTHER SPECIFIED FORMS OF TREMOR (2) Diabetes Assessment/Plan: -Endocrinology consult -short acting insulin for now -hold long acting insulin -PO hypoglycemics outpatient Code(s): E11.9 - TYPE 2 DIABETES MELLITUS WITHOUT COMPLICATIONS Qualifiers: Diabetes mellitus type: type 2 Diabetes mellitus complication status: with hyperglycemia Diabetes mellitus manager long term care insulin use: without prison use Qualified Code(s): E11.65 - Type 2 diabetes mellitus with hyperglycemia (3) Hallucinations, visual Assessment/Plan: seen by Neurology -CT head negative -medication regimen adjusted Code(s): R44.1 - VISUAL HALLUCINATIONS (4) HTN (hypertension) Assessment/Plan: Medications readjusted parameters placed Code(s): I10 - ESSENTIAL (PRIMARY) HYPERTENSION Assessment/Plan see problem list Physical therapy Awaiting discharge Check CMP, If creatinine normal would increase Januvia to 100mg QD and add Metformin 500mg BID with food
[2017-09-20] MEDS ORDERED: INSULIN (NOVOLOG) ASPART 100 UNITS/ML 10ML VIAL ONE (11:55)
[2017-09-20] MEDS: ATORVASTATIN CA 20 MG TABLET (FP) PO SCH (21:24)
[2017-09-20] MEDS: MONTELUKAST NA 10 MG TABLET PO SCH (21:24)
[2017-09-21] MEDS: INSULIN SLIDING SCALE (NOVOLOG) 1 VIAL SQ SCH ×3 (06:17→18:19)
[2017-09-21] MEDS: sitaGLIPtin PHOSPHATE 50 MG TABLET PO SCH (06:17)
[2017-09-21] MEDS ORDERED: PT OWN MED DRAWER 7, Y5N ONE (09:07)
[2017-09-21] MEDS: BUDESONIDE/FORMETEROL FUMARATE 160/4.5 mcg INHALER IH SCH (09:09)
[2017-09-21] MEDS: PANTOPRAZOLE 40 MG TABLET (FP) PO SCH (09:09)
[2017-09-21] MEDS: FUROSEMIDE 40 MG TABLET (FP) PO SCH (09:09)
[2017-09-21] MEDS: amLODIPine BESYLATE 5 MG TABLET (FP) PO SCH (09:09)
[2017-09-21] MEDS: NEBIVOLOL 5 MG TABLET (FP) PO SCH (09:09)
[2017-09-21] MEDS: VALSARTAN 160 MG TABLET (UD) PO SCH (09:09)
[2017-09-21] MEDS: RIVASTIGMINE TARTRATE 1.5 MG CAPSULE PO SCH ×2 (09:10→18:20)
[2017-09-21] MEDS: FEBUXOSTAT 40 MG TAB PO SCH (09:10)
[2017-09-21] MEDS: ROFLUMILAST 500 MCG TABLET PO SCH (09:11)
--- NOTE | 2017-09-21 09:56 | PN ---
Progress Note, Physician Chief Complaint: Altered Mental Status History of Present Illness: NAD, head CT negative seen by endocrinology Novolog coverage for BGM >200 PO antihyperglycemics neurology consult appreciated - Current Medication List Current Medications: Active Medications Acetaminophen (Tylenol -) 650 mg PO Q6H PRN PRN Reason: FEVER OR PAIN Last Admin: 09/12/17 16:09 Dose: 650 mg Amlodipine Besylate (Norvasc -) 5 mg PO DAILY [facility] Last Admin: 09/21/17 09:09 Dose: 5 mg Atorvastatin Calcium (Lipitor -) 20 mg PO HS [facility] Last Admin: 09/20/17 21:24 Dose: 20 mg Budesonide/Formoterol Fumarate (Symbicort 160/4.5mcg -) 2 puff IH BID [facility] Last Admin: 09/21/17 09:09 Dose: 2 inh Carbidopa/Levodopa (Sinemet *Cr* 25/100 -) 1 combo PO TIDCM [facility] Last Admin: 09/21/17 09:10 Dose: 1 combo Febuxostat (Uloric -) 40 mg PO DAILY [facility] Last Admin: 09/21/17 09:10 Dose: 40 mg Furosemide (Lasix -) 40 mg PO DAILY [facility] Last Admin: 09/21/17 09:09 Dose: 40 mg Insulin Aspart (Novolog Vial Sliding Scale -) 1 vial SQ ACHS [facility] PRN Reason: Protocol Last Admin: 09/21/17 06:17 Dose: Not Given Montelukast Sodium (Singulair -) 10 mg PO HS [facility] Last Admin: 09/20/17 21:24 Dose: 10 mg Nebivolol (Bystolic -) 5 mg PO DAILY [facility] Last Admin: 09/21/17 09:09 Dose: 5 mg Pantoprazole Sodium (Protonix -) 40 mg PO DAILY [facility] Last Admin: 09/21/17 09:09 Dose: 40 mg Rivastigmine Tartrate (Exelon (Nf) -) 1.5 mg PO BIDWM [facility] Last Admin: 09/21/17 09:10 Dose: 1.5 mg Roflumilast (Daliresp -) 500 mcg PO DAILY [facility] Last Admin: 09/21/17 09:11 Dose: 500 mcg Sitagliptin Phosphate (Januvia -) 50 mg PO DAILY@0700 [facility] Last Admin: 12/28/17 06:17 Dose: 50 mg Valsartan (Diovan -) 160 mg PO DAILY [facility] Last Admin: 09/21/17 09:09 Dose: 160 mg - Objective Vital Signs: Vital Signs Temperature 98.5 F 09/21/17 08:48 Pulse Rate 63 09/21/17 08:48 Respiratory Rate 18 09/21/17 08:48 Blood Pressure 130/63 09/21/17 08:48 O2 Sat by Pulse Oximetry (%) 96 09/20/17 20:13 Constitutional: Yes: Well Nourished, No Distress, Calm Cardiovascular: Yes: Regular Rate and Rhythm Respiratory: Yes: Regular Musculoskeletal: Yes: WNL Extremities: Yes: WNL Edema: No Peripheral Pulses WNL: Yes Neurological: Yes: Alert, Pre-Existing Deficit Psychiatric: Yes: Alert Labs: CBC, BMP 09/12/17 09:15 09/20/17 06:00 INR, PTT INR 0.97 (0.82-1.09) 09/11/17 20:05 Problem List - Problems (1) Coarse tremors Code(s): G25.2 - OTHER SPECIFIED FORMS OF TREMOR (2) Diabetes Assessment/Plan: -Endocrinology consult -short acting insulin for now -hold long acting insulin -PO hypoglycemics Code(s): E11.9 - TYPE 2 DIABETES MELLITUS WITHOUT COMPLICATIONS Qualifiers: Diabetes mellitus type: type 2 Diabetes mellitus complication status: with hyperglycemia Diabetes mellitus director long term care insulin use: without alf use Qualified Code(s): E11.65 - Type 2 diabetes mellitus with hyperglycemia (3) Hallucinations, visual Assessment/Plan: seen by Neurology -CT head negative -medication regimen adjusted Code(s): R44.1 - VISUAL HALLUCINATIONS (4) HTN (hypertension) Assessment/Plan: Medications readjusted parameters placed Code(s): I10 - ESSENTIAL (PRIMARY) HYPERTENSION Assessment/Plan see problem list Physical therapy Awaiting discharge Check CMP, If creatinine normal would increase Januvia to 100mg QD and add Metformin 500mg BID with food
--- NOTE | 2017-09-21 13:58 | PN ---
Progress Note (short form) - Note Progress Note: Awake, alert denies any complaints Blood sugar up to 200s No hypos Vital Signs Period Temp Pulse Resp BP Sys/Garcia Pulse Ox Last 24 Hr 97.5 F-98.5 F 63-67 18-20 125-149/63-71 96 PE: Awake, alert Neck: Supple, No JVD HEENT: EOMI Lungs: CTA CVS: S1S2 Abd: Benign EXt: No edema CMP Sodium 139 mmol/L (136-145) 09/20/17 06:00 Potassium 3.9 mmol/L (3.5-5.1) 09/20/17 06:00 Chloride 102 mmol/L (98-107) 09/20/17 06:00 Carbon Dioxide 31 mmol/L (21-32) 09/20/17 06:00 Anion Gap 6 (8-16) L 09/20/17 06:00 BUN 26 mg/dL (7-18) H 09/20/17 06:00 Creatinine 1.1 mg/dL (0.55-1.02) H D 09/20/17 06:00 Creat Clearance w eGFR 47.21 (>60) 09/20/17 06:00 POC Glucometer 241 UNITS (80-120) 09/21/17 11:45 Random Glucose 148 mg/dL (74-106) H 09/20/17 06:00 Hemoglobin A1c % 9.0 % (4.8-6.0) H 09/12/17 09:15 Uric Acid 2.3 mg/dL (2.6-7.2) L 09/14/17 06:00 Calcium 8.6 mg/dL (8.5-10.1) 09/20/17 06:00 Total Bilirubin 0.6 mg/dL (0.2-1.0) D 09/20/17 06:00 AST 18 U/L (15-37) D 09/20/17 06:00 ALT 9 U/L (12-78) L D 09/20/17 06:00 Alkaline Phosphatase 92 U/L (45-117) 09/20/17 06:00 Total Protein 6.5 g/dl (6.4-8.2) 09/20/17 06:00 Albumin 2.7 g/dl (3.4-5.0) L 09/20/17 06:00 Vitamin B12 1620 pg/ml (180-914) H 09/12/17 09:15 TSH 1.91 uIU/ml (0.358-3.74) 09/12/17 09:15 Current Medications Generic Name Dose Route Start Last Admin Trade Name Freq PRN Reason Stop Dose Admin Acetaminophen 650 mg 09/12/17 06:11 09/12/17 16:09 Tylenol - PO 650 mg Q6H PRN Administration FEVER OR PAIN Amlodipine Besylate 5 mg 09/13/17 19:45 09/21/17 09:09 Norvasc - PO 5 mg DAILY MIAH Administration Atorvastatin Calcium 20 mg 09/12/17 22:00 09/20/17 21:24 Lipitor - PO 20 mg HS MIAH Administration Budesonide/Formoterol Fumarate 2 puff 09/12/17 10:00 09/21/17 09:09 Symbicort 160/4.5mcg - IH 2 inh BID MIAH Administration Carbidopa/Levodopa 1 combo 09/17/17 08:00 09/21/17 09:10 Sinemet *Cr* 25/100 - PO 1 combo TIDCM MIAH Administration Febuxostat 40 mg 09/12/17 10:00 09/21/17 09:10 Uloric - PO 40 mg DAILY MIAH Administration Furosemide 40 mg 09/12/17 10:00 09/21/17 09:09 Lasix - PO 40 mg DAILY MIAH Administration Insulin Aspart 1 vial 09/13/17 22:00 09/21/17 12:49 Novolog Vial Sliding Scale - SQ Not Given ACHS MIAH Protocol Montelukast Sodium 10 mg 09/12/17 22:00 09/20/17 21:24 Singulair - PO 10 mg HS MIAH Administration Nebivolol 5 mg 09/13/17 19:45 09/21/17 09:09 Bystolic - PO 5 mg DAILY MIAH Administration Pantoprazole Sodium 40 mg 09/12/17 10:00 09/21/17 09:09 Protonix - PO 40 mg DAILY MIAH Administration Rivastigmine Tartrate 1.5 mg 09/14/17 08:00 09/21/17 09:10 Exelon (Nf) - PO 1.5 mg BIDWM MIAH Administration Roflumilast 500 mcg 09/12/17 10:00 09/21/17 09:11 Daliresp - PO 500 mcg DAILY MIAH Administration Sitagliptin Phosphate 50 mg 09/17/17 07:00 09/21/17 06:17 Januvia - PO 50 mg DAILY@0700 MIAH Administration Valsartan 160 mg 09/13/17 19:33 09/21/17 09:09 Diovan - PO 160 mg DAILY MIAH Administration AP: Confusion Dementia T2DM eGFR 47 Novolog coverage when FS 200 Januvia 50mg QD Add Metformin 500gm QD with dinner Will add repaglinide if pt is unable to tolerate Metformin or if the blood sugar remain high on Januvia and Metformin HbA1c 9.0 Will f/u Problem List - Problems (1) Diabetes Code(s): E11.9 - TYPE 2 DIABETES MELLITUS WITHOUT COMPLICATIONS Qualifiers: Diabetes mellitus type: type 2 Diabetes mellitus complication status: with hyperglycemia Diabetes mellitus detention insulin use: without rodent exterminator use Qualified Code(s): E11.65 - Type 2 diabetes mellitus with hyperglycemia (2) HTN (hypertension) Code(s): I10 - ESSENTIAL (PRIMARY) HYPERTENSION (3) Hallucinations, visual Code(s): R44.1 - VISUAL HALLUCINATIONS
[2017-09-21 14:36] VITALS: BP 145/69; PULSE 64; TEMP 97.9
== END 2017-09-21 18:59 | DRG 57 ==
LOC: JER 19:05 → JERBED 09-12 00:21 → J7W 09-12 02:45
PROVIDERS: ADMIT Family Medicine; ATTEND Family Medicine
DX: G20 Parkinson's disease (principal); R41.0 Disorientation, unspecified; R44.1 Visual hallucinations; G25.2 Other specified forms of tremor; F02.80 Dementia in other diseases classified elsewhere, unspecified severity, without behavioral disturbance, psychotic disturbance, mood disturbance, and anxiety; I10 Essential (primary) hypertension; E78.5 Hyperlipidemia, unspecified; R26.2 Difficulty in walking, not elsewhere classified; E11.65 Type 2 diabetes mellitus with hyperglycemia
CPT/HCPCS: 36415; 70450-TC; 70551-TC; 71010-TC; 80053; 81003; 81015; 82607; 83036; 84443; 84550; 85025; 85610; 85730; 86593; 87086; 90670; 90688; 93005; 93010; 94640; 97116-GP; 97161-GP; 99282-25; G0008; G0009

== ENCOUNTER 2017-12-21 18:24 | Inpatient (IN) | payer OTHER ==
--- NOTE | 2017-12-21 18:44 | PDOC ---
Rapid Medical Evaluation Time Seen by Provider: 12/21/17 18:38 Medical Evaluation: Allergies Allergy/AdvReac Type Severity Reaction Status Date / Time No Known Allergies Allergy Verified 09/11/17 19:32 12/21/17 18:39 The patient presents with a chief complaint of: Nausea and vomiting since this morning. Pain started on the LLQ, moved to RLQ. Vomited 5 times today. Denies fevers, diarrhea, constipation. I have performed a brief in-person evaluation of this patient; Pertinent physical exam findings: ambulatory, in no respiratory distress. epigastric/RLQ pain. Soft. Non-distended, no rebound or guarding. I have ordered the following: CBC, CMP, PT/INR, lipase, UA, UC, EKG The patient will proceed to the ED for further evaluation.
[2017-12-21 18:46] VITALS: BMI 26.6
[2017-12-21] MEDS ORDERED: SODIUM CHLORIDE 1,000 ML IV STA (20:58)
[2017-12-21] MEDS ORDERED: ONDANSETRON 4 MG/2 ML VIAL IVPUSH STA (20:59)
[2017-12-21] MEDS ORDERED: FAMOTIDINE 20 MG/50 ML IVPB 20 MG in PREMIX 50 IVPB ONE (20:59)
--- NOTE | 2017-12-21 20:59 | PDOC ---
History of Present Illness - General History Source: Patient, Old Records Exam Limitations: No Limitations - History of Present Illness Initial Comments: 12/21/17 22:02 Patient is an 87 year old female with a significant past medical history of Diabetes, Dementia, Hyperlipidemia, COPD, HTN, asthma who presents to the ED with complaints of diffuse abdominal pain that began last night. Patient reports experiencing gradual abdominal pain that began last night while at home and has shown no signs of subsiding. She reports experiencing associated symptoms of nausea, and multiple episodes of vomiting throughout today since this morning. Patient reports abdominal pain is a 8/10 in intensity, prompting her to come into the ED for further evaluation. Denies chest pain, Sob. Denies fevers, chills. Denies urinary complaints, Denies sick contacts, out of state travelling. Allergies: None Social History: No smoking. No alcohol. No illicit drugs. Surgical History: None PMD: Dr. [place]era <Jasbir Abdi - Last Filed: 12/21/17 22:02> - General History Source: Patient <Channing Motley - Last Filed: 12/26/17 19:26> - General Chief Complaint: Pain, Acute Stated Complaint: NAUSEA/VOMITING Time Seen by Provider: 12/21/17 18:38 Past History <Jasbir Abdi - Last Filed: 12/21/17 22:02> - Past Medical History Asthma: Yes COPD: Yes Dementia: Yes Diabetes: Yes HTN: Yes Hypercholesterolemia: Yes - Immunization History Immunization Up to Date: No - Suicide/Smoking/Psychosocial Hx Smoking History: Never smoked Have you smoked in the past 12 months: No Hx Alcohol Use: No Drug/Substance Use Hx: No Substance Use Type: None <Channing Motley - Last Filed: 12/26/17 19:26> - Past Medical History Allergies/Adverse Reactions: Allergies Allergy/AdvReac Type Severity Reaction Status Date / Time No Known Allergies Allergy Verified 12/21/17 18:40 Home Medications: Ambulatory Orders Albuterol Sulfate Inhaler - [Ventolin HFA Inhaler -] 1 - 2 inh PO QID 09/12/17 Amlodipine Bes/Olmesartan Med [Amlodipine-Olmesartan 10-40 mg] 1 each PO DAILY 09/12/17 Atorvastatin Ca [Lipitor] 20 mg PO HS 09/12/17 Bimatoprost [Lumigan] 1 drop IO DAILY 09/12/17 Brimonidine Tartrate/Timolol [Combigan 0.2%-0.5% Eye Drops] 5 ml OP HS 09/12/17 Budesonide/Formeterol Fumarate [SYMBICORT 160/4.5mcg -] 1 inh PO DAILY 09/12/17 Febuxostat [Uloric] 40 mg PO DAILY 09/12/17 Furosemide [Lasix -] 20 mg PO DAILY 09/12/17 Icosapent Ethyl [Vascepa] 1 gm PO DAILY 09/12/17 Montelukast Na [Singulair -] 10 mg PO HS 09/12/17 Omeprazole 20 mg PO DAILY 09/12/17 Roflumilast [Daliresp] 500 mcg PO DAILY 09/12/17 Saxagliptin HCl [Onglyza] 5 mg PO DAILY 09/12/17 Umeclidinium [place] [Incruse Ellipta] 62.5 mcg IH PRN PRN 09/12/17 Insulin Sliding Scale [Novolog Vial Sliding Scale -] 1 vial SQ ACHS units 09/15 Nebivolol [Bystolic -] 5 mg PO DAILY #30 tab 09/15/17 Insulin Detemir [Levemir Flextouch] 5 unit SQ HS 12/21/17 Acetaminophen [Tylenol .Regular Strength -] 650 mg PO Q6H PRN tablet 12/26/17 Review of Systems - Review of Systems Able to Perform ROS?: Yes Comments:: 12/21/17 22:02 CONSTITUTIONAL: Absent: fever, no chills, no fatigue EYES: Absent: visual changes ENT: Absent: ear pain, no sore throat CARDIOVASCULAR: Absent: chest pain, no palpitations RESPIRATORY: Absent: cough, no SOB GI: +Nausea, Vomiting +Abdominal pain. Absent: abdominal pain, no constipation, no diarrhea GENITOURINARY: Absent: dysuria, no frequency, no hematuria MUSCULOSKELETAL: Absent: back pain, no arthralgia, no myalgia SKIN: Absent: rash <Jasbir Abdi - Last Filed: 12/21/17 22:02> *Physical Exam - Vital Signs Last Vital Signs Temp Pulse Resp BP Pulse Ox 60 19 150/72 98 12/21/17 18:40 12/21/17 18:40 12/21/17 18:40 12/21/17 21:28 - Physical Exam Comments: 12/21/17 22:02 GENERAL: Well-appearing, well-nourished. No apparent distress. HEENT: Normocephalic, atraumatic. PERRL, EOM intact. CARDIOVASCULAR: Normal S1, S2. Regular rate and rhythm. PULMONARY: Clear to auscultation bilaterally. ABDOMEN: Soft, non-distended, non-tender. EXTREMITIES: Normal ROM in all four extremities. No gross deformities. SKIN: Warm, dry. No rash NEUROLOGICAL: No focal neurological deficits. <Jasbir Abdi - Last Filed: 12/21/17 22:02> - Vital Signs Last Vital Signs Temp Pulse Resp BP Pulse Ox 60 19 150/72 98 12/21/17 18:40 12/21/17 18:40 12/21/17 18:40 12/21/17 18:40 <Channing Motley - Last Filed: 12/26/17 19:26> Heart Score/ECG Review - ECG Intrepretation Comment:: 12/21/17 21:51 Sinus bradycardia with sinus arrhythmia Septal infarct, age undetermined Abnormal ECG Vent. rate 58 bpm MN interval 182 ms QRS duration 80 ms <Jasbir Abdi - Last Filed: 12/21/17 22:02> ED Treatment Course - LABORATORY CBC & Chemistry Diagram: 12/21/17 21:10 - ADDITIONAL ORDERS Additional order review: 12/21/17 21:10 RBC 4.04 MCV 87.6 MCHC 33.1 RDW 16.3 H D MPV 10.3 Neutrophils % 86.2 H D Lymphocytes % 9.9 D Monocytes % 3.7 L Eosinophils % 0.0 D Basophils % 0.2 - Medications Given in the ED: ED Medications Discontinued Medications Generic Name Dose Route Start Last Admin Trade Name Freq PRN Reason Stop Dose Admin Famotidine/Sodium Chloride 20 50 mls @ 100 mls/hr 12/21/17 20:59 12/21/17 21: 26 mg/ Miscellaneous IVPB 12/21/17 21:28 100 mls/hr ONCE ONE Administration Ondansetron HCl 4 mg 12/21/17 20:59 12/21/17 21:26 Zofran Injection IVPUSH 12/21/17 21:00 4 mg ONCE STA Administration <Jasbir Abdi - Last Filed: 12/21/17 22:02> - LABORATORY CBC & Chemistry Diagram: 12/25/17 06:30 12/26/17 07:55 <Channing Motley - Last Filed: 12/26/17 19:26> Medical Decision Making - Medical Decision Making 12/26/17 19:26 Dr. Motley: The scribe's documentation has been prepared under my direction and personally reviewed by me in its entirery. I confirm that the note above accurately reflects all work, treatment, procedures, and medical decision making performed by me. <Channing Motley - Last Filed: 12/26/17 19:26> *DC/Admit/Observation/Transfer - Attestations Scribe Attestion: 12/21/17 22:02 Documentation prepared by Jasbir Abdi, acting as medical claims examiner for Channing Motley MD/DO. <Jasbir Abdi - Last Filed: 12/21/17 22:02> - Discharge Dispostion Admit: Yes <Channing Motley - Last Filed: 12/26/17 19:26> Diagnosis at time of Disposition: Abdominal pain, Enlarged gallbladder, N&V (nausea and vomiting) - Discharge Dispostion Disposition: VNS/HOME HEALTH CARE Condition at time of disposition: Stable
[2017-12-21] MEDS ORDERED: FAMOTIDINE 20 MG/50 ML IVPB 20 MG/50 ML MG IVPB ONE (21:13)
[2017-12-21] MEDS ORDERED: ONDANSETRON 4 MG/2 ML VIAL ONE (21:13)
[2017-12-21 21:19] LABS: BASO % 0.2 % (0-2.0); HEMATOCRIT 35.4 % (32.4-45.2); HEMOGLOBIN 11.7 GM/dL (10.7-15.3); LYMPH % 9.9 % (8-40); MCHC 33.1 g/dl (32.0-36.0); MEAN CELL VOLUME 87.6 fl (80-96); MEAN PLT VOLUME 10.3 fl (7.5-11.1); MONO % 3.7 % (3.8-10.2); NEUT % 86.2 % (42.8-82.8); PLATELET COUNT 287 K/MM3 (134-434); RBC 4.04 M/mm3 (3.60-5.2); RDW 16.3 % (11.6-15.6); WHITE BLOOD COUNT 15.7 K/mm3 (4.0-10.0)
[2017-12-21 21:41] LABS: INR 1.01 (0.82-1.09); PROTHROMBIN TIME (PATIENT) 11.4 SEC (9.98-11.88)
[2017-12-21 22:07] LABS: ANION GAP 12 (8-16); BLOOD UREA NITROGEN 30 mg/dL (7-18); CALCIUM 10.4 mg/dL (8.5-10.1); CHLORIDE 102 mmol/L (98-107); CO2 31 mmol/L (21-32); GLUCOSE,RANDOM 239 mg/dL (74-106); POTASSIUM 3.6 mmol/L (3.5-5.1); SODIUM 145 mmol/L (136-145)
[2017-12-21 22:11] LABS: ALK PHOS 149 U/L (45-117); BILIRUBIN,TOTAL 0.8 mg/dL (0.2-1.0); CREATININE 1.1 mg/dL (0.55-1.02); SGOT/AST 157 U/L (15-37); SGPT/ALT 38 U/L (12-78); TOT PROT 8.8 g/dl (6.4-8.2)
[2017-12-22] MEDS ORDERED: ONDANSETRON 4 MG/2 ML VIAL IVPUSH STA (00:14)
[2017-12-22] MEDS ORDERED: morphine CARPU-JECT 2 MG/1 ML DISP.SYRIN IVPUSH ONE (00:14)
[2017-12-22] MEDS ORDERED: morphine SULFATE 4 MG/ML VIAL ONE (00:16)
[2017-12-22] MEDS ORDERED: ONDANSETRON 4 MG/2 ML VIAL ONE (00:28)
[2017-12-22 01:57] LABS: URINE APPEARANCE CLEAR; URINE BILIRUBIN NEGATIVE (<2.0 mg/dL); URINE BLOOD NEGATIVE (NEGATIVE); URINE COLOR YELLOW; URINE GLUCOSE (UA) 1+ (NEGATIVE); URINE KETONE TRACE (NEGATIVE); URINE LEUK ESTERASE NEGATIVE (NEGATIVE); URINE NITRITE NEGATIVE (NEGATIVE)
[2017-12-22 01:58] LABS: URINE PROTEIN 2+ (NEGATIVE)
[2017-12-22 02:00] LABS: EPI CELLS FEW /HPF (FEW); URINE MUCUS RARE
--- NOTE | 2017-12-22 03:00 | HP ---
CHIEF COMPLAINT: abdominal pain PCP: Santy HISTORY OF PRESENT ILLNESS: This is an 87yF with a past medical history significant for dementia, DM, HTN, COPD who presented to the ED with abdominal pain since 12/20 in evening. Pain got worse throughout day on 12/21 associated with nausea and vomiting. Upon exam , pt reports improvement in pain and resolution of nausea/vomiting. ER course was notable for: (1) CT abd/pel with CBD 9mm otherwise no acute findings (2) US abd also with CBD 9mm (3) WBC 15.7 Recent Travel: unk PAST MEDICAL HISTORY: DM, HTN, HLD, COPD, asthma, dementia PAST SURGICAL HISTORY: none Social History: Smoking: none Alcohol: none Drugs: none Allergies No Known Allergies Allergy (Verified 12/21/17 18:40) HOME MEDICATIONS: 3 Medication Instructions Recorded Albuterol Sulfate Inhaler - 1 - 2 inh PO QID 09/12/17 [Ventolin HFA Inhaler -] Amlodipine Bes/Olmesartan Med 1 each PO DAILY 09/12/17 [Amlodipine-Olmesartan 10-40 mg] Atorvastatin Ca [Lipitor] 20 mg PO HS 09/12/17 Bimatoprost [Lumigan] 1 drop IO DAILY 09/12/17 Brimonidine Tartrate/Timolol 5 ml OP HS 09/12/17 [Combigan 0.2%-0.5% Eye Drops] Budesonide/Formeterol Fumarate 1 inh PO DAILY 09/12/17 [SYMBICORT 160/4.5mcg -] Febuxostat [Uloric] 40 mg PO DAILY 09/12/17 Furosemide [Lasix -] 20 mg PO DAILY 09/12/17 Icosapent Ethyl [Vascepa] 1 gm PO DAILY 09/12/17 Montelukast Na [Singulair -] 10 mg PO HS 09/12/17 Omeprazole 20 mg PO DAILY 09/12/17 Roflumilast [Daliresp] 500 mcg PO DAILY 09/12/17 Saxagliptin HCl [Onglyza] 5 mg PO DAILY 09/12/17 Umeclidinium [place] [Incruse 62.5 mcg IH PRN PRN 09/12/17 Ellipta] Insulin Sliding Scale [Novolog 1 vial SQ ACHS units 09/15/17 Vial Sliding Scale -] Nebivolol [Bystolic -] 5 mg PO DAILY #30 tab 09/15/17 Insulin Detemir [Levemir Flextouch] 5 unit SQ HS 12/21/17 REVIEW OF SYSTEMS CONSTITUTIONAL: Absent: fever, chills, diaphoresis, generalized weakness, malaise, loss of appetite, weight change HEENT: Absent: rhinorrhea, nasal congestion, throat pain, throat swelling, difficulty swallowing, mouth swelling, ear pain, eye pain, visual changes CARDIOVASCULAR: Absent: chest pain, syncope, palpitations, irregular heart rate, lightheadedness , peripheral edema RESPIRATORY: Absent: cough, shortness of breath, dyspnea with exertion, orthopnea, wheezing, stridor, hemoptysis GASTROINTESTINAL: Present: abdominal pain, nausea, vomiting Absent: abdominal distension, diarrhea, constipation, melena, hematochezia GENITOURINARY: Absent: dysuria, frequency, urgency, hesitancy, hematuria, flank pain, genital pain MUSCULOSKELETAL: Absent: myalgia, arthralgia, joint swelling, back pain, neck pain SKIN: Absent: rash, itching, pallor HEMATOLOGIC/IMMUNOLOGIC: Absent: easy bleeding, easy bruising, lymphadenopathy, frequent infections ENDOCRINE: Absent: unexplained weight gain, unexplained weight loss, heat intolerance, cold intolerance NEUROLOGIC: Absent: headache, focal weakness or paresthesias, dizziness, unsteady gait, seizure, mental status changes, bladder or bowel incontinence PSYCHIATRIC: Absent: anxiety, depression, suicidal or homicidal ideation, hallucinations. PHYSICAL EXAMINATION Vital Signs - 24 hr 3 12/21/17 12/21/17 18:40 21:28 Pulse Rate 60 Respiratory 19 Rate Blood Pressure 150/72 O2 Sat by Pulse 98 98 Oximetry (%) GENERAL: Awake, alert, and oriented to person and place, in no acute distress. HEAD: Normal with no signs of trauma. EYES: Pupils equal, round and reactive to light, extraocular movements intact, sclera anicteric, conjunctiva clear. No lid lag. EARS, NOSE, THROAT: Ears normal, nares patent, oropharynx clear without exudates. Moist mucous membranes. NECK: Normal range of motion, supple without lymphadenopathy, JVD, or masses. LUNGS: Breath sounds equal, clear to auscultation bilaterally. No wheezes, and no crackles. No accessory muscle use. HEART: Regular rate and rhythm, normal S1 and S2 without murmur, rub or gallop. ABDOMEN: Soft, tender on deep palpation B/L upper quadrants, nontender lower, not distended, normoactive bowel sounds, no guarding, no rebound, no masses. No hepatomegaly or splenomegaly. MUSCULOSKELETAL: Normal range of motion at all joints. No bony deformities or tenderness. No CVA tenderness. UPPER EXTREMITIES: 2+ pulses, warm, well-perfused. No cyanosis. No clubbing. No peripheral edema. LOWER EXTREMITIES: 2+ pulses, warm, well-perfused. No calf tenderness. No peripheral edema. NEUROLOGICAL: Cranial nerves II-XII intact. Normal speech. Normal gait. PSYCHIATRIC: Cooperative. Good eye contact. Appropriate mood and affect. SKIN: Warm, dry, normal turgor, no rashes or lesions noted, normal capillary refill. Laboratory Results - last 24 hr 3 12/21/17 12/21/17 12/21/17 18:44 21:00 21:10 WBC 15.7 H D RBC 4.04 Hgb 11.7 Hct 35.4 MCV 87.6 MCH 29.0 MCHC 33.1 RDW 16.3 H D Plt Count 287 D MPV 10.3 Neutrophils % 86.2 H D Lymphocytes % 9.9 D Monocytes % 3.7 L Eosinophils % 0.0 D Basophils % 0.2 PT with INR 11.40 INR 1.01 Sodium 145 Potassium 3.6 Chloride 102 Carbon Dioxide 31 Anion Gap 12 BUN 30 H Creatinine 1.1 H Creat Clearance w eGFR 47.21 Random Glucose 239 H Calcium 10.4 H Total Bilirubin 0.8 D AST 157 H ALT 38 Alkaline Phosphatase 149 H Creatine Kinase 91 Troponin I 0.03 Total Protein 8.8 H Albumin 4.0 Lipase 131 Urine Color Urine Appearance Urine pH Ur Specific [place] Urine Protein Urine Glucose (UA) Urine Ketones Urine Blood Urine Nitrite Urine Bilirubin Urine Urobilinogen Ur Leukocyte Esterase Urine WBC (Auto) Urine RBC (Auto) Ur Epithelial Cells Urine Mucus 3 Urine Color Yellow 12/22/17 01:45 Urine Appearance Clear 12/22/17 01:45 Urine pH 6.0 (5.0-8.0) 12/22/17 01:45 Ur Specific [place] 1.013 (1.001-1.035) 12/22/17 01:45 Urine Protein 2+ (NEGATIVE) H 12/22/17 01:45 Urine Glucose (UA) 1+ (NEGATIVE) H 12/22/17 01:45 Urine Ketones Trace (NEGATIVE) H 12/22/17 01:45 Urine Blood Negative (NEGATIVE) 12/22/17 01:45 Urine Nitrite Negative (NEGATIVE) 12/22/17 01:45 Urine Bilirubin Negative (<2.0 mg/dL) 12/22/17 01:45 Urine Urobilinogen 2.0 H Ur Leukocyte Esterase Negative (NEGATIVE) 12/22/17 01:45 Urine WBC (Auto) 2 Urine RBC (Auto) 6 Ur Epithelial Cells Few /HPF (FEW) 12/22/17 01:45 Urine Mucus Rare 12/22/17 01:45 Radiology Reports US Abdomen, limited THIS IS A PRELIMINARY REPORT FROM [facility] IMPRESSION: Gallbladder sludge without secondary signs for cholecystitis. Questionable mild medical renal disease. THIS DOCUMENT HAS BEEN ELECTRONICALLY SIGNED David Mcneill MD 12/22/2017 01:[address] abd/pelvis IMPRESSION: 1. No evidence of bowel obstruction or diverticulitis. Normal-appearing appendix. 2. Distended gallbladder with cholelithiasis and common bile duct dilatation measuring up to 9 mm. Please correlate clinically for cholecystitis and with right upper quadrant ultrasound. 3. Wall thickening versus underdistention in the gastric antrum and duodenum as above. Please correlate clinically for gastroduodenitis. 4. A 7 mm solid noncalcified nodule in the left lung base. Please compare with prior chest CT if available. Otherwise, follow-up noncontrast chest CT may be obtained in 6-12 months. 5. Lumbar spondylosis with severe canal and moderate to severe neural foraminal narrowing at L4-L5 and L3-L4 as described above. 6. Please refer to the report above for additional findings. Reported By: Jay Salinas DO 12/21/17 2335 ECG Sinus bradycardia with sinus arrhythmia rate 58, QTC [address]/T wave changes ASSESSMENT/PLAN: 87yF with PMH DM, HTN, HLD, COPD, asthma, dementia presented to the ED with abdominal pain, nausea and vomiting. Abdominal pain, nausea, vomiting, gallbladder sludge - N/V improved with medications, cont zofran PRN - abd pain improved with morphine, monitor off - NPO, if ok in am, trial clears leukocytosis - unclear etiology, ? r/t vomiting - repeat labs in am DM - h/o hypoglycemia - start levemir tonight if no longer NPO otherwise hold and maintain novolog SS - BGM AC/HS with novolog sliding scale HTN/HLD - cont home meds, change to formulary substitution where appropriate. COPD - cont home meds, incruse changed to formulary spiriva DVT PPX - heparin deferred as anticipated LOS less than 48h, reassess if stays longer FEN - NS @ 75cc/hr while npo - bmp in am - if feeling better in am, may trial clears, PCP to reassess in am Dispo: pt currently requires further observation. Visit type - Emergency Visit Emergency Visit: Yes ED Registration Date: 12/21/17 Care time: The patient presented to the Emergency Department on the above date and was hospitalized for further evaluation of their emergent condition. - New Patient This patient is new to me today: Yes Date on this admission: 12/22/17 - Critical Care Critical Care patient: No Hospitalist Screening - Colonoscopy Questionnaire Colonoscopy Questionnaire: Colonoscopy Questionnaire - Patient: 50 - 75 years old and never had a screening colonoscopy: No History of colon or rectal polyps, or CA: No History of IBD, Crohn's disease or UC: No History of abdominal radiation therapy as a child: No - Relative: 1 with colon or rectal CA, or polyps at age 60 or younger: No Colon or rectal CA diagnosed at age 45 or younger: No Multiple relatives with colon or rectal CA: No - Outcome: Screening Result: Negative Screen
[2017-12-22] MEDS ORDERED: ONDANSETRON 4 MG/2 ML VIAL IVPUSH PRN (03:14)
[2017-12-22] MEDS ORDERED: ALBUTEROL SO4 18 GM HFA INHALER IH PRN (03:40)
[2017-12-22] MEDS: SODIUM CHLORIDE 1,000 ML IV SCH (04:24)
[2017-12-22 06:30] LABS: BASO % 0.1 % (0-2.0); HEMATOCRIT 32.6 % (32.4-45.2); HEMOGLOBIN 10.7 GM/dL (10.7-15.3); LYMPH % 8.7 % (8-40); MCH 28.9 pg (25.7-33.7); MCHC 32.8 g/dl (32.0-36.0); MEAN CELL VOLUME 88.1 fl (80-96); MEAN PLT VOLUME 10.5 fl (7.5-11.1); MONO % 4.2 % (3.8-10.2); PLATELET COUNT 281 K/MM3 (134-434); RDW 16.3 % (11.6-15.6); WHITE BLOOD COUNT 12.8 K/mm3 (4.0-10.0)
[2017-12-22 06:46] LABS: ANION GAP 6 (8-16); CHLORIDE 108 mmol/L (98-107); CO2 31 mmol/L (21-32); POTASSIUM 3.6 mmol/L (3.5-5.1); SODIUM 145 mmol/L (136-145)
[2017-12-22 06:53] LABS: BLOOD UREA NITROGEN 24 mg/dL (7-18); CALCIUM 9.6 mg/dL (8.5-10.1); CREATININE 0.9 mg/dL (0.55-1.02); GLUCOSE,RANDOM 204 mg/dL (74-106); MAGNESIUM 1.5 mg/dL (1.8-2.4); PHOSPHOROUS 4.2 mg/dL (2.5-4.9)
[2017-12-22] MEDS: INSULIN SLIDING SCALE (NOVOLOG) 1 VIAL SQ SCH ×4 (08:11→21:19)
[2017-12-22] MEDS ORDERED: cefOXitin SODIUM 1 GM VIAL (RESTRICTED TO ID) IVPB ONE (09:13)
--- NOTE | 2017-12-22 09:19 | CONSULT ---
Consult Consult Specialty:: general surgery Referred by:: linwood ureña Reason for Consultation:: abdominal pain - History of Present Illness Chief Complaint: abdominal pain History of Present Illness: 87 yo female PMH HTN, DM type 2, HLD, COPD, demntia presented to the emergency department with abdominal pain since 12/20 in the evening. Pain got worse throughout day on 12/21 associated with nausea and vomiting. Her pain began yesterday after a meal. Noted on exam in ED to have RUQ pain but improved this morning. Since treatment reports improvement in pain and resolution of nausea/ vomiting. Denies fever and chills, no jaundice, no history or similar episodes. CT scan of abdomen and pelvis shows distended 9cm gallbladder with minimal changes and CBD 9mm, US confirms distended gallbladder with with CBD 9mm. WBC elevated to 15.7 with minimal resolution after hydration. We were asked to assess. - History Source History Provided By: Patient, Medical Record Limitations to Obtaining History: No Limitations - Past Medical History MEAT CURER: Yes: Dementia Cardio/Vascular: Yes: HTN, Hyperlipdemia Pulmonary: Yes: COPD Endocrine: Yes: Diabetes Mellitus - Alcohol/Substance Use Hx Alcohol Use: No - Smoking History Smoking history: Never smoked Have you smoked in the past 12 months: No Home Medications - Allergies Allergies/Adverse Reactions: Allergies Allergy/AdvReac Type Severity Reaction Status Date / Time No Known Allergies Allergy Verified 12/21/17 18:40 - Home Medications Home Medications: Ambulatory Orders Albuterol Sulfate Inhaler - [Ventolin HFA Inhaler -] 1 - 2 inh PO QID 09/12/17 Amlodipine Bes/Olmesartan Med [Amlodipine-Olmesartan 10-40 mg] 1 each PO DAILY 09/12/17 Atorvastatin Ca [Lipitor] 20 mg PO HS 09/12/17 Bimatoprost [Lumigan] 1 drop IO DAILY 09/12/17 Brimonidine Tartrate/Timolol [Combigan 0.2%-0.5% Eye Drops] 5 ml OP HS 09/12/17 Budesonide/Formeterol Fumarate [SYMBICORT 160/4.5mcg -] 1 inh PO DAILY 09/12/17 Febuxostat [Uloric] 40 mg PO DAILY 09/12/17 Furosemide [Lasix -] 20 mg PO DAILY 09/12/17 Icosapent Ethyl [Vascepa] 1 gm PO DAILY 09/12/17 Montelukast Na [Singulair -] 10 mg PO HS 09/12/17 Omeprazole 20 mg PO DAILY 09/12/17 Roflumilast [Daliresp] 500 mcg PO DAILY 09/12/17 Saxagliptin HCl [Onglyza] 5 mg PO DAILY 09/12/17 Umeclidinium [place] [Incruse Ellipta] 62.5 mcg IH PRN PRN 09/12/17 Insulin Sliding Scale [Novolog Vial Sliding Scale -] 1 vial SQ ACHS units 09/15 Nebivolol [Bystolic -] 5 mg PO DAILY #30 tab 09/15/17 Insulin Detemir [Levemir Flextouch] 5 unit SQ HS 12/21/17 Family Disease History - Family Disease History Family Disease History: Diabetes: Daughter Review of Systems - Review of Systems Constitutional: denies: Chills, Fever Eyes: denies: Blurred Vision, Recent Change in Vision HENT: denies: Difficult Swallowing, Throat Pain Cardiovascular: denies: Chest Pain, Palpitations Respiratory: denies: Cough, SOB Musculoskeletal: denies: Muscle Cramps, Muscle Weakness Integumentary: denies: Lesions, Rash Neurological: reports: Confusion. denies: Syncope, Tremors Endocrine: denies: Unexplained Weight Gain, Unexplained Weight Loss Hematology/Lymphatic: denies: Easily Bruised, Excessive Bleeding Psychiatric: reports: Other (confusion). denies: Anxiety, Depression Physical Exam Vital Signs: Vital Signs Temperature 98.3 F 12/21/17 21:04 Pulse Rate 65 12/22/17 05:14 Respiratory Rate 18 12/22/17 05:14 Blood Pressure 141/67 12/22/17 05:14 O2 Sat by Pulse Oximetry (%) 98 12/22/17 05:14 Vital Signs Period Temp Pulse Resp BP Sys/Garcia Pulse Ox Last 24 Hr 98.3 F 60-65 18-20 138-150/67-72 98-99 Intake & Output 12/21/17 12/22/17 12/22/17 23:59 07:59 15:59 Weight 160 lb Other: Voiding Method Toilet Height 5 ft 5 in Body Mass Index (BMI) 26.6 Weight Measurement Method Est/Stated by Patient Constitutional: Yes: No Distress, Calm, Obese Eyes: Yes: Conjunctiva Clear, EOM Intact HENT: Yes: Atraumatic, Normocephalic Neck: Yes: Supple, Trachea Midline Cardiovascular: Yes: Regular Rate and Rhythm, S1, S2. No: Murmur Respiratory: Yes: Regular, CTA Bilaterally Gastrointestinal: Yes: Normal Bowel Sounds, Soft, Abdomen, Obese. No: Tenderness (minimal tenderness RUQ, - aguayo's sign) ...Rectal Exam: Yes: Deferred Renal/: No: CVA Tenderness - Left, CVA Tenderness - Right Extremities: No: Cool, Cyanosis Edema: No Peripheral Pulses WNL: Yes Neurological: Yes: Alert, Oriented Psychiatric: Yes: Alert, Oriented Labs: CBC, BMP 12/22/17 05:45 12/22/17 05:55 Imaging - Results Cat Scan: Report Reviewed (9cm GB with 9mm CBD), Image Reviewed Ultrasound: Report Reviewed (9cm GB with 9mm CBD), Image Reviewed Problem List - Problems (1) Biliary colic Assessment/Plan: 87 yo female MMP right upper quadrant and epigastric pain with nausea and vomiting, biliary colic and imaging consistent dyskinesia of GB and 9mm CBD which may be appropriate given age. He abdominal pain has since resolved. She may be a candidate for cholecystectomy. When present with the option of surgery she was NOT interested. She has 7 children one of which she lives with. She promises to discuss surgery with them. NPO and IVF hydration empiric IV antibiotics GI evaluation MRCP Cardiac and pulmonary risk stratification for general anesthesia Possible Laparoscopic cholecystetcomy 4/2 - will discuss with patient and family Will follow while in house Code(s): K80.50 - CALCULUS OF BILE DUCT W/O CHOLANGITIS OR CHOLECYST W/O OBST (2) Dyskinesia of gallbladder Code(s): K82.8 - OTHER SPECIFIED DISEASES OF GALLBLADDER (3) Abdominal pain Code(s): R10.9 - UNSPECIFIED ABDOMINAL PAIN (4) N&V (nausea and vomiting) Code(s): R11.2 - NAUSEA WITH VOMITING, UNSPECIFIED (5) Diabetes Code(s): E11.9 - TYPE 2 DIABETES MELLITUS WITHOUT COMPLICATIONS Qualifiers: Diabetes mellitus type: type 2 Diabetes mellitus shelter insulin use: without shelter use Diabetes mellitus complication status: with hyperglycemia Qualified Code(s): E11.65 - Type 2 diabetes mellitus with hyperglycemia (6) HTN (hypertension) Code(s): I10 - ESSENTIAL (PRIMARY) HYPERTENSION
--- NOTE | 2017-12-22 09:55 | EKG ---
Test Reason : Blood Pressure : / mmHG Vent. Rate : 058 BPM Atrial Rate : 058 BPM P-R Int : 182 ms QRS Dur : 080 ms QT Int : 452 ms P-R-T Axes : 046 018 -22 degrees QTc Int : 443 ms POOR DATA QUALITY, INTERPRETATION MAY BE ADVERSELY AFFECTED SINUS BRADYCARDIA WITH SINUS ARRHYTHMIA SEPTAL INFARCT (CITED ON OR BEFORE 11-SEP-2017) ABNORMAL ECG Confirmed by MONICA LOUIS MD ([id number]) on 12/22/2017 9:55:20 AM Referred By: Confirmed By:MONICA LOUIS MD
[2017-12-22] MEDS ORDERED: PATIENT'S OWN MEDICATION (NON-FORMULARY) (Amlodipine Bes/Olmesartan Med [Amlodipine-Olmesa PO SCH (10:00)
[2017-12-22] MEDS ORDERED: ALBUTEROL SO4 18 GM HFA INHALER IH SCH (10:00)
--- NOTE | 2017-12-22 10:31 | PN ---
Progress Note (short form) - Note Progress Note: ID consult dictated seen in ED imp/reccd abdominal pain/vomiting/leukocytosis-?biliary sepsis ?biliary colic workup in progress will order blood cultures given leukocytosis continue cefoxitin gi/surgery following diabetes dementia Problem List - Problems (1) Biliary colic Code(s): K80.50 - CALCULUS OF BILE DUCT W/O CHOLANGITIS OR CHOLECYST W/O OBST (2) Diabetes Code(s): E11.9 - TYPE 2 DIABETES MELLITUS WITHOUT COMPLICATIONS Qualifiers: Diabetes mellitus type: type 2 Diabetes mellitus intermediate frame tender insulin use: without alf use Diabetes mellitus complication status: with hyperglycemia Qualified Code(s): E11.65 - Type 2 diabetes mellitus with hyperglycemia
--- NOTE | 2017-12-22 11:04 | CON.GI ---
Consult Consult Specialty:: GI Reason for Consultation:: abdominal pain - History of Present Illness History of Present Illness: Chart reviewed. Per ED intake: 87F. Diabetes, Dementia, Hyperlipidemia, COPD, HTN, asthma. Patient reports experiencing gradual abdominal pain that began last night while at home and has shown no signs of subsiding. She reports experiencing associated symptoms of nausea, and multiple episodes of vomiting throughout today since this morning. Patient reports abdominal pain is a 8/10 in intensity , prompting her to come into the ED for further evaluation. Denies chest pain, Sob. Denies fevers, chills. Denies urinary complaints, Denies sick contacts, out of state travelling. RUQ US: Over distended gallbladder measuring 9 cm in sagittal length with questionable minimal sludge and without evidence of gallstones, wall thickening or pericholecystic free fluid. Dilated common bile duct measuring [address] A/P: 1. No evidence of bowel obstruction or diverticulitis. Normal-appearing appendix. 2. Distended gallbladder with cholelithiasis and common bile duct dilatation measuring up to 9 mm. Please correlate clinically for cholecystitis and with right upper quadrant ultrasound. 3. Wall thickening versus underdistention in the gastric antrum and duodenum as above. The patient was seen and examined while in ED holding area. Offers no abdominal complaints, nausea, or vomiting at this time. Reports no BMs today. No history of the same. No hisotry of GB, liver, pancrease issues int eh past. No hisotry ogf PUD, esophagitis, GERD. On exam, appears comfortable and pain-free. Unicterics. Soft, benign abdomen. Christian's not elicited. Received antiemetic, opioids, and abx thus far. BLood work revealed leukocytosis, AST x 3, normal ALT, bili and mild ALP elevation. 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 Cardio/Vascular: Yes: HTN, Hyperlipdemia Pulmonary: Yes: COPD Endocrine: Yes: Diabetes Mellitus - Alcohol/Substance Use Hx Alcohol Use: No - Smoking History Smoking history: Never smoked Have you smoked in the past 12 months: No Home Medications - Allergies Allergies/Adverse Reactions: Allergies Allergy/AdvReac Type Severity Reaction Status Date / Time No Known Allergies Allergy Verified 12/21/17 18:40 - Home Medications Home Medications: Ambulatory Orders Albuterol Sulfate Inhaler - [Ventolin HFA Inhaler -] 1 - 2 inh PO QID 09/12/17 Amlodipine Bes/Olmesartan Med [Amlodipine-Olmesartan 10-40 mg] 1 each PO DAILY 09/12/17 Atorvastatin Ca [Lipitor] 20 mg PO HS 09/12/17 Bimatoprost [Lumigan] 1 drop IO DAILY 09/12/17 Brimonidine Tartrate/Timolol [Combigan 0.2%-0.5% Eye Drops] 5 ml OP HS 09/12/17 Budesonide/Formeterol Fumarate [SYMBICORT 160/4.5mcg -] 1 inh PO DAILY 09/12/17 Febuxostat [Uloric] 40 mg PO DAILY 09/12/17 Furosemide [Lasix -] 20 mg PO DAILY 09/12/17 Icosapent Ethyl [Vascepa] 1 gm PO DAILY 09/12/17 Montelukast Na [Singulair -] 10 mg PO HS 09/12/17 Omeprazole 20 mg PO DAILY 09/12/17 Roflumilast [Daliresp] 500 mcg PO DAILY 09/12/17 Saxagliptin HCl [Onglyza] 5 mg PO DAILY 09/12/17 Umeclidinium [place] [Incruse Ellipta] 62.5 mcg IH PRN PRN 09/12/17 Insulin Sliding Scale [Novolog Vial Sliding Scale -] 1 vial SQ ACHS units 09/15 Nebivolol [Bystolic -] 5 mg PO DAILY #30 tab 09/15/17 Insulin Detemir [Levemir Flextouch] 5 unit SQ HS 12/21/17 Family Disease History - Family Disease History Family History: Unremarkable Family Disease History: Diabetes: Daughter Review of Systems Findings/Remarks: as per HPI/H&P Physical Exam-GI Vital Signs: Vital Signs Temperature 98.3 F 12/21/17 21:04 Pulse Rate 65 12/22/17 05:14 Respiratory Rate 18 12/22/17 05:14 Blood Pressure 141/67 12/22/17 05:14 O2 Sat by Pulse Oximetry (%) 98 12/22/17 05:14 Constitutional: Yes: Well Nourished, No Distress, Calm Eyes: Yes: Conjunctiva Clear HENT: Yes: Atraumatic, Other (melasma) Neck: Yes: Supple Cardiovascular: No: Bradycardia, Tachycardia Gastrointestinal Inspection: No: Ascites, Distention ...Auscultate: Yes: Normoactive Bowel Sounds ...Palpate: Yes: Soft. No: Firm/Rigid, Guarding, Mass, Pulsatile Mass, Tenderness, Tenderness, Rebound ...Rectal Exam: Yes: Deferred Integumentary: Yes: Other (melasam) Neurological: Yes: Alert Labs: CBC, BMP 12/22/17 05:45 12/22/17 05:55 INR, PTT INR 1.01 (0.82-1.09) 12/21/17 21:10 CBCD WBC 12.8 K/mm3 (4.0-10.0) H 12/22/17 05:45 RBC 3.70 M/mm3 (3.60-5.2) 12/22/17 05:45 Hgb 10.7 GM/dL (10.7-15.3) 12/22/17 05:45 Hct 32.6 % (32.4-45.2) 12/22/17 05:45 MCV 88.1 fl (80-96) 12/22/17 05:45 MCHC 32.8 g/dl (32.0-36.0) 12/22/17 05:45 RDW 16.3 % (11.6-15.6) H 12/22/17 05:45 Plt Count 281 K/MM3 (134-434) 12/22/17 05:45 MPV 10.5 fl (7.5-11.1) 12/22/17 05:45 CMP Sodium 145 mmol/L (136-145) 12/22/17 05:55 Potassium 3.6 mmol/L (3.5-5.1) 12/22/17 05:55 Chloride 108 mmol/L (98-107) H 12/22/17 05:55 Carbon Dioxide 31 mmol/L (21-32) 12/22/17 05:55 Anion Gap 6 (8-16) L 12/22/17 05:55 BUN 24 mg/dL (7-18) H 12/22/17 05:55 Creatinine 0.9 mg/dL (0.55-1.02) 12/22/17 05:55 Creat Clearance w eGFR 47.21 (>60) 12/21/17 18:44 Calcium 9.6 mg/dL (8.5-10.1) 12/22/17 05:55 Total Bilirubin 0.8 mg/dL (0.2-1.0) D 12/21/17 18:44 AST 157 U/L (15-37) H 12/21/17 18:44 ALT 38 U/L (12-78) 12/21/17 18:44 Alkaline Phosphatase 149 U/L (45-117) H 12/21/17 18:44 Total Protein 8.8 g/dl (6.4-8.2) H 12/21/17 18:44 Albumin 4.0 g/dl (3.4-5.0) 12/21/17 18:44 Laboratory Tests 12/21/17 12/21/17 12/21/17 18:44 21:00 21:10 WBC 15.7 H D RBC 4.04 Hgb 11.7 Hct 35.4 MCV 87.6 MCH 29.0 MCHC 33.1 RDW 16.3 H D Plt Count 287 D MPV 10.3 Neutrophils % 86.2 H D Lymphocytes % 9.9 D Monocytes % 3.7 L Eosinophils % 0.0 D Basophils % 0.2 PT with INR INR Sodium 145 Potassium 3.6 Chloride 102 Carbon Dioxide 31 Anion Gap 12 BUN 30 H Creatinine 1.1 H Creat Clearance w eGFR 47.21 POC Glucometer Random Glucose 239 H Calcium 10.4 H Phosphorus Magnesium Total Bilirubin 0.8 D AST 157 H ALT 38 Alkaline Phosphatase 149 H Creatine Kinase 91 Troponin I 0.03 Total Protein 8.8 H Albumin 4.0 Lipase 131 Urine Color Urine Appearance Urine pH Ur Specific [place] Urine Protein Urine Glucose (UA) Urine Ketones Urine Blood Urine Nitrite Urine Bilirubin Urine Urobilinogen Ur Leukocyte Esterase Urine WBC (Auto) Urine RBC (Auto) Ur Epithelial Cells Urine Mucus 12/21/17 12/22/17 12/22/17 21:10 01:45 05:45 WBC 12.8 H RBC 3.70 Hgb 10.7 Hct 32.6 MCV 88.1 MCH 28.9 MCHC 32.8 RDW 16.3 H Plt Count 281 MPV 10.5 Neutrophils % 87.0 H Lymphocytes % 8.7 Monocytes % 4.2 Eosinophils % 0.0 Basophils % 0.1 PT with INR 11.40 INR 1.01 Sodium Potassium Chloride Carbon Dioxide Anion Gap BUN Creatinine Creat Clearance w eGFR POC Glucometer Random Glucose Calcium Phosphorus Magnesium Total Bilirubin AST ALT Alkaline Phosphatase Creatine Kinase Troponin I Total Protein Albumin Lipase Urine Color Yellow Urine Appearance Clear Urine pH 6.0 Ur Specific [place] 1.013 Urine Protein 2+ H Urine Glucose (UA) 1+ H Urine Ketones Trace H Urine Blood Negative Urine Nitrite Negative Urine Bilirubin Negative Urine Urobilinogen 2.0 H Ur Leukocyte Esterase Negative Urine WBC (Auto) 2 Urine RBC (Auto) 6 Ur Epithelial Cells Few Urine Mucus Rare 12/22/17 12/22/17 05:55 07:18 WBC RBC Hgb Hct MCV MCH MCHC RDW Plt Count MPV Neutrophils % Lymphocytes % Monocytes % Eosinophils % Basophils % PT with INR INR Sodium 145 Potassium 3.6 Chloride 108 H Carbon Dioxide 31 Anion Gap 6 L BUN 24 H Creatinine 0.9 Creat Clearance w eGFR POC Glucometer [id number] Random Glucose 204 H Calcium 9.6 Phosphorus 4.2 Magnesium 1.5 L Total Bilirubin AST ALT Alkaline Phosphatase Creatine Kinase Troponin I Total Protein Albumin Lipase Urine Color Urine Appearance Urine pH Ur Specific [place] Urine Protein Urine Glucose (UA) Urine Ketones Urine Blood Urine Nitrite Urine Bilirubin Urine Urobilinogen Ur Leukocyte Esterase Urine WBC (Auto) Urine RBC (Auto) Ur Epithelial Cells Urine Mucus Imaging - Results Cat Scan: Report Reviewed Ultrasound: Report Reviewed Problem List - Problems (1) Melasma Code(s): L81.1 - CHLOASMA (2) Abdominal pain Code(s): R10.9 - UNSPECIFIED ABDOMINAL PAIN (3) Biliary colic Code(s): K80.50 - CALCULUS OF BILE DUCT W/O CHOLANGITIS OR CHOLECYST W/O OBST (4) Dyskinesia of gallbladder Code(s): K82.8 - OTHER SPECIFIED DISEASES OF GALLBLADDER (5) Enlarged gallbladder Code(s): K82.8 - OTHER SPECIFIED DISEASES OF GALLBLADDER (6) N&V (nausea and vomiting) Code(s): R11.2 - NAUSEA WITH VOMITING, UNSPECIFIED (7) Diabetes Code(s): E11.9 - TYPE 2 DIABETES MELLITUS WITHOUT COMPLICATIONS Qualifiers: Diabetes mellitus type: type 2 Diabetes mellitus retirement insulin use: without retirement use Diabetes mellitus complication status: with hyperglycemia Qualified Code(s): E11.65 - Type 2 diabetes mellitus with hyperglycemia Assessment/Plan ?Cholecystitis ?Symptomatic cholelithiasis Mild cholestasis. ? choledocolithiasis. Essentially normal CBD diameter. (up to 8.5 mm expected in this age). Do not suspect cholangitis at this point. R/o PUD , gastritis, esophagitis, acute enterocolitis Agree with current management (PPI, NPO, IVF, abx, antiemetics, and pain management PRN). MRCP pending Sx on the case for possible cholecystectomy Will follow labs and MRI results.
--- NOTE | 2017-12-22 11:21 | CONS ---
DATE OF CONSULTATION: DATE OF DICTATION: 12/22/2017 REQUESTED BY: Akila Madera MD HISTORY OF PRESENT ILLNESS: This is an 87-year-old woman who presented to the emergency room with abdominal pain. She describes pain radiating across her upper abdomen from the left to the right side. There is no lower abdominal pain. She had 5 episodes of vomiting with improvement. In the ER she had a CAT scan that showed a dilated CBD. She had an elevated white count. She had no fevers or chills. This morning is feeling better but still has some residual pain. PAST MEDICAL HISTORY: Notable for diabetes, hypertension, hyperlipidemia, COPD, asthma and dementia. PAST SURGICAL HISTORY: She has never had any surgery. ALLERGIES: She has no known drug allergies. MEDICATIONS: At home include amlodipine, albuterol inhaler, Lipitor, [place] eyedrops, Symbicort, Uloric, Lasix, singulare, omeprazole, Daliresp, Onglyza, Incruse Ellipta and Bystolic. FAMILY HISTORY: Not available. SOCIAL HISTORY: There is no history of cigarette or substance use. She lives in the community. REVIEW OF SYSTEMS: Notable for residual abdominal pain. Her vomiting has stopped. She denies dysuria. She denies fevers or chills. PHYSICAL EXAMINATION:Vital Signs: Temperature is 98.3, pulse of 65, blood pressure 141/67, respiratory rate is 18, she is saturating 98% on room air. General: This is a pleasant woman in no acute distress. HEENT: She is normocephalic. Her eyes are anicteric. Neck: Supple. Lungs: Clear to auscultation. Heart: Regular rate and rhythm. Abdomen: Soft. She has mild mid epigastric discomfort and she has no rebound or guarding. Extremities: Without edema. LABORATORY DATA: White count was 15.7 on admission, this morning is 12.8, hemoglobin 10.7. BUN is 6 and creatinine is 24. LFTs are notable for AST of 157, alkaline phosphatase of 149, bilirubin of 0.8, ALT of 38. Lipase is normal. Urinalysis is negative. IMAGING STUDIES: As stated before, she has mild CBD dilatation at 9 mm. ASSESSMENT: In summary, this is an elderly woman admitted with upper abdominal pain and vomiting that has resolved and leukocytosis. Concern for biliary sepsis, biliary colic. Workup in progress. RECOMMENDATIONS: Will order blood cultures given leukocytosis. Would continue cefoxitin. GI Surgery following. Spoke with the emergency room nurse regarding the need for blood cultures and to start antibiotics. Further imaging studies have been ordered. SEPIDEH SARAH M.D. [id number]
[2017-12-22] MEDS: FEBUXOSTAT 40 MG TAB PO SCH (11:30)
[2017-12-22] MEDS: NEBIVOLOL 5 MG TABLET (FP) PO SCH (11:30)
[2017-12-22] MEDS: VALSARTAN 160 MG TABLET (UD) PO SCH (11:30)
[2017-12-22] MEDS: amLODIPine BESYLATE 10 MG TABLET (FP) PO SCH (11:30)
[2017-12-22] MEDS: PANTOPRAZOLE SODIUM 40 MG VIAL IVPUSH SCH (11:30)
[2017-12-22] MEDS: FUROSEMIDE 20 MG TABLET (FP) PO SCH (11:30)
[2017-12-22] MEDS: ROFLUMILAST 500 MCG TABLET PO SCH (11:30)
[2017-12-22] MEDS ORDERED: amLODIPine BESYLATE 5 MG TABLET (FP) ONE (11:46)
[2017-12-22] MEDS ORDERED: VALSARTAN 80 MG TABLET (UD) ONE (11:46)
[2017-12-22] MEDS ORDERED: PANTOPRAZOLE SODIUM 40 MG VIAL ONE (11:47)
[2017-12-22] MEDS: BUDESONIDE/FORMETEROL FUMARATE 160/4.5 mcg INHALER IH SCH ×2 (13:11→22:04)
[2017-12-22] MEDS: TIOTROPIUM BROMIDE 18 MCG CAPSULES IH SCH (13:11)
[2017-12-22] MEDS ORDERED: CEFOXITIN SODIUM 1 GM in DEXTROSE 5%-WATER - 100 ML IVPB SCH ×2 (15:00→18:00)
--- NOTE | 2017-12-22 16:00 | PN ---
Progress Note, Physician Chief Complaint: Abdominal pain, nausea, vomiting - Current Medication List Current Medications: Active Medications Albuterol Sulfate (Ventolin Hfa Inhaler -) 2 puff IH Q6H PRN PRN Reason: SHORT OF BREATH/WHEEZING Amlodipine Besylate (Norvasc -) 10 mg PO DAILY [facility] Last Admin: 12/22/17 11:30 Dose: 10 mg Atorvastatin Calcium (Lipitor -) 20 mg PO HS [facility] Budesonide/Formoterol Fumarate (Symbicort 160/4.5mcg -) 1 puff IH BID [facility] Last Admin: 12/22/17 13:11 Dose: Not Given Febuxostat (Uloric -) 40 mg PO DAILY [facility] Last Admin: 12/22/17 11:30 Dose: 40 mg Furosemide (Lasix -) 20 mg PO DAILY [facility] Last Admin: 12/22/17 11:30 Dose: 20 mg Sodium Chloride (Normal Saline -) 1,000 mls @ 75 mls/hr IV ASDIR [facility] Last Admin: 12/22/17 04:24 Dose: 75 mls/hr Cefoxitin Sodium 1 gm/ Sodium (Chloride) 100 mls @ 200 mls/hr IVPB Q8H-IV [facility] Insulin Aspart (Novolog Vial Sliding Scale -) 1 vial SQ HS [facility] PRN Reason: Protocol Insulin Aspart (Novolog Vial Sliding Scale -) 1 vial SQ TIDAC [facility] PRN Reason: Protocol Last Admin: 12/22/17 14:34 Dose: Not Given Montelukast Sodium (Singulair -) 10 mg PO HS [facility] Nebivolol (Bystolic -) 5 mg PO DAILY [facility] Last Admin: 12/22/17 11:30 Dose: 5 mg Ondansetron HCl (Zofran Injection) 4 mg IVPUSH Q6H PRN PRN Reason: NAUSEA Pantoprazole Sodium (Protonix Iv) 40 mg IVPUSH DAILY [facility] Last Admin: 12/22/17 11:30 Dose: 40 mg Roflumilast (Daliresp -) 500 mcg PO DAILY [facility] Last Admin: 12/22/17 11:30 Dose: 500 mcg Tiotropium [place] (Spiriva -) 1 puff IH DAILY [facility] Last Admin: 12/22/17 13:11 Dose: Not Given Valsartan (Diovan -) 320 mg PO DAILY [facility] Last Admin: 03/30/18 11:30 Dose: 320 mg - Objective Vital Signs: Vital Signs Temperature 98.2 F 12/22/17 11:30 Pulse Rate 62 12/22/17 11:30 Respiratory Rate 16 12/22/17 11:30 Blood Pressure 166/88 12/22/17 11:30 O2 Sat by Pulse Oximetry (%) 96 12/22/17 11:30 Constitutional: Yes: Well Nourished, No Distress, Calm Labs: CBC, BMP 12/22/17 05:45 12/22/17 05:55 INR, PTT INR 1.01 (0.82-1.09) 12/21/17 21:10
[2017-12-22] MEDS ORDERED: PT OWN MED DRAWER 7, Y5N ONE (17:37)
[2017-12-22] MEDS: CEFOXITIN SODIUM 1 GM in SODIUM CHLORIDE 100 ML IVPB SCH (20:16)
[2017-12-22] MEDS: MONTELUKAST NA 10 MG TABLET PO SCH (21:08)
[2017-12-22] MEDS: ATORVASTATIN CA 20 MG TABLET (FP) PO SCH (21:08)
[2017-12-22] MEDS ORDERED: INSULIN DETEMIR 100 UNITS/ML MDV SQ SCH (22:00)
[2017-12-23] MEDS: CEFOXITIN SODIUM 1 GM in SODIUM CHLORIDE 100 ML IVPB SCH ×3 (02:37→17:55)
[2017-12-23] MEDS: SODIUM CHLORIDE 1,000 ML IV SCH (04:08)
[2017-12-23] MEDS: INSULIN SLIDING SCALE (NOVOLOG) 1 VIAL SQ SCH ×4 (06:04→21:52)
--- NOTE | 2017-12-23 09:30 | PN ---
Progress Note, Physician - Current Medication List Current Medications: Active Medications Albuterol Sulfate (Ventolin Hfa Inhaler -) 2 puff IH Q6H PRN PRN Reason: SHORT OF BREATH/WHEEZING Amlodipine Besylate (Norvasc -) 10 mg PO DAILY [facility] Last Admin: 12/22/17 11:30 Dose: 10 mg Atorvastatin Calcium (Lipitor -) 20 mg PO [facility] Last Admin: 12/22/17 21:08 Dose: 20 mg Budesonide/Formoterol Fumarate (Symbicort 160/4.5mcg -) 1 puff IH BID [facility] Last Admin: 12/22/17 22:04 Dose: 1 puff Febuxostat (Uloric -) 40 mg PO DAILY [facility] Last Admin: 12/22/17 11:30 Dose: 40 mg Furosemide (Lasix -) 20 mg PO DAILY [facility] Last Admin: 12/22/17 11:30 Dose: 20 mg Sodium Chloride (Normal Saline -) 1,000 mls @ 75 mls/hr IV ASDIR [facility] Last Admin: 12/23/17 04:08 Dose: 75 mls/hr Cefoxitin Sodium 1 gm/ Sodium (Chloride) 100 mls @ 200 mls/hr IVPB Q8H-IV [facility] Last Admin: 12/23/17 02:37 Dose: 200 mls/hr Insulin Aspart (Novolog Vial Sliding Scale -) 1 vial SQ [facility] PRN Reason: Protocol Last Admin: 12/22/17 21:19 Dose: Not Given Insulin Aspart (Novolog Vial Sliding Scale -) 1 vial SQ TIDAC [facility] PRN Reason: Protocol Last Admin: 12/23/17 06:04 Dose: Not Given Montelukast Sodium (Singulair -) 10 mg PO [facility] Last Admin: 12/22/17 21:08 Dose: 10 mg Nebivolol (Bystolic -) 5 mg PO DAILY [facility] Last Admin: 12/22/17 11:30 Dose: 5 mg Ondansetron HCl (Zofran Injection) 4 mg IVPUSH Q6H PRN PRN Reason: NAUSEA Pantoprazole Sodium (Protonix Iv) 40 mg IVPUSH DAILY [facility] Last Admin: 12/22/17 11:30 Dose: 40 mg Roflumilast (Daliresp -) 500 mcg PO DAILY [facility] Last Admin: 12/22/17 11:30 Dose: 500 mcg Tiotropium [place] (Spiriva -) 1 puff IH DAILY [facility] Last Admin: 12/22/17 13:11 Dose: Not Given Valsartan (Diovan -) 320 mg PO DAILY [facility] Last Admin: 12/22/17 11:30 Dose: 320 mg - Objective Vital Signs: Vital Signs Temperature 97.8 F 12/23/17 07:43 Pulse Rate 76 12/23/17 07:43 Respiratory Rate 20 12/23/17 07:43 Blood Pressure 142/78 12/23/17 07:43 O2 Sat by Pulse Oximetry (%) 96 12/22/17 11:30 Cardiovascular: Yes: S1, S2 Respiratory: Yes: Regular, CTA Bilaterally Gastrointestinal: Yes: Normal Bowel Sounds, Soft. No: Tenderness Labs: CBC, BMP 12/22/17 05:45 12/22/17 05:55 INR, PTT INR 1.01 (0.82-1.09) 12/21/17 21:10 Problem List - Problems (1) Abdominal pain Assessment/Plan: -RESOLVED -MRCP GI FOLLOW UP Code(s): R10.9 - UNSPECIFIED ABDOMINAL PAIN (2) Enlarged gallbladder Assessment/Plan: MRCP ABX PER ID FOLLOW LABS Code(s): K82.8 - OTHER SPECIFIED DISEASES OF GALLBLADDER (3) Diabetes Assessment/Plan: BGM Code(s): E11.9 - TYPE 2 DIABETES MELLITUS WITHOUT COMPLICATIONS Qualifiers: Diabetes mellitus type: type 2 Diabetes mellitus snf insulin use: without terminal supervisor use Diabetes mellitus complication status: with hyperglycemia Qualified Code(s): E11.65 - Type 2 diabetes mellitus with hyperglycemia (4) HTN (hypertension) Code(s): I10 - ESSENTIAL (PRIMARY) HYPERTENSION
--- NOTE | 2017-12-23 11:20 | PN ---
Progress Note, Physician History of Present Illness: Seated in bed Denies abdominal pain, N/V No c/o fever/ chills WBC improved BC (-) - Current Medication List Current Medications: Active Medications Albuterol Sulfate (Ventolin Hfa Inhaler -) 2 puff IH Q6H PRN PRN Reason: SHORT OF BREATH/WHEEZING Amlodipine Besylate (Norvasc -) 10 mg PO DAILY [facility] Last Admin: 12/22/17 11:30 Dose: 10 mg Atorvastatin Calcium (Lipitor -) 20 mg PO HS [facility] Last Admin: 12/22/17 21:08 Dose: 20 mg Budesonide/Formoterol Fumarate (Symbicort 160/4.5mcg -) 1 puff IH BID [facility] Last Admin: 12/22/17 22:04 Dose: 1 puff Febuxostat (Uloric -) 40 mg PO DAILY [facility] Last Admin: 12/22/17 11:30 Dose: 40 mg Furosemide (Lasix -) 20 mg PO DAILY [facility] Last Admin: 12/22/17 11:30 Dose: 20 mg Sodium Chloride (Normal Saline -) 1,000 mls @ 75 mls/hr IV ASDIR [facility] Last Admin: 12/23/17 04:08 Dose: 75 mls/hr Cefoxitin Sodium 1 gm/ Sodium (Chloride) 100 mls @ 200 mls/hr IVPB Q8H-IV [facility] Last Admin: 12/23/17 02:37 Dose: 200 mls/hr Insulin Aspart (Novolog Vial Sliding Scale -) 1 vial SQ HS [facility] PRN Reason: Protocol Last Admin: 12/22/17 21:19 Dose: Not Given Insulin Aspart (Novolog Vial Sliding Scale -) 1 vial SQ TIDAC [facility] PRN Reason: Protocol Last Admin: 12/23/17 06:04 Dose: Not Given Montelukast Sodium (Singulair -) 10 mg PO HS [facility] Last Admin: 12/22/17 21:08 Dose: 10 mg Nebivolol (Bystolic -) 5 mg PO DAILY [facility] Last Admin: 12/22/17 11:30 Dose: 5 mg Ondansetron HCl (Zofran Injection) 4 mg IVPUSH Q6H PRN PRN Reason: NAUSEA Pantoprazole Sodium (Protonix Iv) 40 mg IVPUSH DAILY [facility] Last Admin: 12/22/17 11:30 Dose: 40 mg Roflumilast (Daliresp -) 500 mcg PO DAILY [facility] Last Admin: 12/22/17 11:30 Dose: 500 mcg Tiotropium [place] (Spiriva -) 1 puff IH DAILY [facility] Last Admin: 12/22/17 13:11 Dose: Not Given Valsartan (Diovan -) 320 mg PO DAILY [facility] Last Admin: 12/22/17 11:30 Dose: 320 mg - Objective Vital Signs: Vital Signs Temperature 97.8 F 12/23/17 07:43 Pulse Rate 76 12/23/17 07:43 Respiratory Rate 20 12/23/17 07:43 Blood Pressure 142/78 12/23/17 07:43 O2 Sat by Pulse Oximetry (%) 96 12/22/17 11:30 Constitutional: Yes: No Distress, Obese Cardiovascular: Yes: Regular Rate and Rhythm, S1, S2 Respiratory: Yes: CTA Bilaterally Gastrointestinal: Yes: Normal Bowel Sounds, Soft, Abdomen, Obese. No: Tenderness Labs: CBC, BMP 12/22/17 05:45 12/22/17 05:55 INR, PTT INR 1.01 (0.82-1.09) 12/21/17 21:10 Assessment/Plan R/O biliart colic Leukocytosis-improved Diabetes mellitus OBS Continue cefoxitin
[2017-12-23] MEDS: amLODIPine BESYLATE 10 MG TABLET (FP) PO SCH (11:51)
[2017-12-23] MEDS: VALSARTAN 160 MG TABLET (UD) PO SCH (11:51)
[2017-12-23] MEDS: FUROSEMIDE 20 MG TABLET (FP) PO SCH (11:51)
[2017-12-23] MEDS: BUDESONIDE/FORMETEROL FUMARATE 160/4.5 mcg INHALER IH SCH ×2 (11:52→21:53)
[2017-12-23] MEDS: PANTOPRAZOLE SODIUM 40 MG VIAL IVPUSH SCH (11:53)
[2017-12-23] MEDS: TIOTROPIUM BROMIDE 18 MCG CAPSULES IH SCH (11:54)
[2017-12-23] MEDS ORDERED: PT OWN MED DRAWER 7, Y5N ONE ×2 (12:56→16:41)
[2017-12-23] MEDS: FEBUXOSTAT 40 MG TAB PO SCH (13:24)
[2017-12-23] MEDS: NEBIVOLOL 5 MG TABLET (FP) PO SCH (13:24)
[2017-12-23] MEDS: ROFLUMILAST 500 MCG TABLET PO SCH (13:24)
[2017-12-23 16:00] LABS: BASO % 0.4 % (0-2.0); EOS % 0.4 % (0-4.5); LYMPH % 15.7 % (8-40); MCH 29.2 pg (25.7-33.7); MCHC 33.3 g/dl (32.0-36.0); MEAN CELL VOLUME 87.7 fl (80-96); MEAN PLT VOLUME 10.4 fl (7.5-11.1); MONO % 7.5 % (3.8-10.2); PLATELET COUNT 246 K/MM3 (134-434); RBC 3.77 M/mm3 (3.60-5.2); RDW 16.4 % (11.6-15.6)
--- NOTE | 2017-12-23 16:52 | PN ---
Progress Note, Physician Chief Complaint: abdominal pain History of Present Illness: 87 yo female PMH HTN, DM type 2, HLD, COPD, demntia presented to the emergency department with abdominal pain since 12/20 in the evening. Pain got worse throughout day on 12/21 associated with nausea and vomiting. Her pain began yesterday after a meal. Noted on exam in ED to have RUQ pain but improved this morning. Since treatment reports improvement in pain and resolution of nausea/ vomiting. Denies fever and chills, no jaundice, no history or similar episodes. CT scan of abdomen and pelvis shows distended 9cm gallbladder with minimal changes and CBD 9mm, US confirms distended gallbladder with with CBD 9mm. WBC elevated to 15.7 with minimal resolution after hydration. We were asked to assess. - Current Medication List Current Medications: Active Medications Albuterol Sulfate (Ventolin Hfa Inhaler -) 2 puff IH Q6H PRN PRN Reason: SHORT OF BREATH/WHEEZING Amlodipine Besylate (Norvasc -) 10 mg PO DAILY [facility] Last Admin: 12/23/17 11:51 Dose: 10 mg Atorvastatin Calcium (Lipitor -) 20 mg PO HS [facility] Last Admin: 12/22/17 21:08 Dose: 20 mg Budesonide/Formoterol Fumarate (Symbicort 160/4.5mcg -) 1 puff IH BID [facility] Last Admin: 12/23/17 11:52 Dose: 1 puff Febuxostat (Uloric -) 40 mg PO DAILY [facility] Last Admin: 12/23/17 13:24 Dose: 40 mg Furosemide (Lasix -) 20 mg PO DAILY [facility] Last Admin: 12/23/17 11:51 Dose: 20 mg Sodium Chloride (Normal Saline -) 1,000 mls @ 75 mls/hr IV [facility] Last Admin: 12/23/17 04:08 Dose: 75 mls/hr Cefoxitin Sodium 1 gm/ Sodium (Chloride) 100 mls @ 200 mls/hr IVPB Q8H-IV [facility] Last Admin: 12/23/17 10:00 Dose: 200 mls/hr Insulin Aspart (Novolog Vial Sliding Scale -) 1 vial SQ [facility] PRN Reason: Protocol Last Admin: 12/22/17 21:19 Dose: Not Given Insulin Aspart (Novolog Vial Sliding Scale -) 1 vial SQ TIDAC [facility] PRN Reason: Protocol Last Admin: 12/23/17 12:17 Dose: Not Given Montelukast Sodium (Singulair -) 10 mg PO HS [facility] Last Admin: 12/22/17 21:08 Dose: 10 mg Nebivolol (Bystolic -) 5 mg PO DAILY [facility] Last Admin: 12/23/17 13:24 Dose: 5 mg Ondansetron HCl (Zofran Injection) 4 mg IVPUSH Q6H PRN PRN Reason: NAUSEA Pantoprazole Sodium (Protonix Iv) 40 mg IVPUSH DAILY [facility] Last Admin: 12/23/17 11:53 Dose: 40 mg Roflumilast (Daliresp -) 500 mcg PO DAILY [facility] Last Admin: 12/23/17 13:24 Dose: 500 mcg Tiotropium [place] (Spiriva -) 1 puff IH DAILY [facility] Last Admin: 12/23/17 11:54 Dose: Not Given Valsartan (Diovan -) 320 mg PO DAILY [facility] Last Admin: 12/23/17 11:51 Dose: 320 mg - Objective Vital Signs: Vital Signs Temperature 98.4 F 12/23/17 15:21 Pulse Rate 64 12/23/17 15:21 Respiratory Rate 16 12/23/17 15:21 Blood Pressure 156/81 12/23/17 15:21 O2 Sat by Pulse Oximetry (%) 96 12/22/17 11:30 Constitutional: Yes: No Distress, Calm, Obese Eyes: Yes: Conjunctiva Clear, EOM Intact HENT: Yes: Atraumatic, Normocephalic Neck: Yes: Supple, Trachea Midline Cardiovascular: Yes: Regular Rate and Rhythm, S1, S2 Respiratory: Yes: Regular, CTA Bilaterally Gastrointestinal: Yes: Normal Bowel Sounds, Soft, Abdomen, Obese, Tenderness ( in RUQ, - murphys), Tenderness, Epigastrium. No: Palpable Mass, Pulsatile Mass , Tenderness, Rebound ...Rectal Exam: Yes: Deferred Extremities: No: Cool, Cyanosis Neurological: Yes: Alert, Oriented Psychiatric: Yes: Alert, Oriented Labs: CBC, BMP 12/23/17 15:00 INR, PTT INR 1.01 (0.82-1.09) 12/21/17 21:10 Problem List - Problems (1) Biliary colic Assessment/Plan: 87 yo female MMP right upper quadrant and epigastric pain with nausea and vomiting, biliary colic and imaging consistent dyskinesia of GB and 9mm CBD which may be appropriate given age. He abdominal pain has since resolved. She may be a candidate for cholecystectomy. When present with the option of surgery she was NOT interested. She has 7 children one of which she lives with. She promises to discuss surgery with them. NPO and IVF hydration empiric IV antibiotics GI evaluation MRCP Cardiac and pulmonary risk stratification for general anesthesia Possible Laparoscopic cholecystetcomy 12/25 - Discussed surgery with her son who was present at the bedside monday morning. He was explained that she need surgery but both he and his mother (the patient) was not particularly interested in having surgery. Will follow Code(s): K80.50 - CALCULUS OF BILE DUCT W/O CHOLANGITIS OR CHOLECYST W/O OBST (2) Dyskinesia of gallbladder Code(s): K82.8 - OTHER SPECIFIED DISEASES OF GALLBLADDER (3) Abdominal pain Code(s): R10.9 - UNSPECIFIED ABDOMINAL PAIN (4) N&V (nausea and vomiting) Code(s): R11.2 - NAUSEA WITH VOMITING, UNSPECIFIED (5) Diabetes Code(s): E11.9 - TYPE 2 DIABETES MELLITUS WITHOUT COMPLICATIONS Qualifiers: Diabetes mellitus type: type 2 Diabetes mellitus prison insulin use: without lobsterman use Diabetes mellitus complication status: with hyperglycemia Qualified Code(s): E11.65 - Type 2 diabetes mellitus with hyperglycemia (6) HTN (hypertension) Code(s): I10 - ESSENTIAL (PRIMARY) HYPERTENSION
--- NOTE | 2017-12-23 21:09 | PN ---
Progress Note, Physician History of Present Illness: Chart reviewed. Pt was seen and examine this am. No events. Not in pain. MRI results noted. chronic vs acute giovanny. - Current Medication List Current Medications: Active Medications Albuterol Sulfate (Ventolin Hfa Inhaler -) 2 puff IH Q6H PRN PRN Reason: SHORT OF BREATH/WHEEZING Amlodipine Besylate (Norvasc -) 10 mg PO DAILY [facility] Last Admin: 12/23/17 11:51 Dose: 10 mg Atorvastatin Calcium (Lipitor -) 20 mg PO HS [facility] Last Admin: 12/22/17 21:08 Dose: 20 mg Budesonide/Formoterol Fumarate (Symbicort 160/4.5mcg -) 1 puff IH BID [facility] Last Admin: 12/23/17 11:52 Dose: 1 puff Febuxostat (Uloric -) 40 mg PO DAILY [facility] Last Admin: 12/23/17 13:24 Dose: 40 mg Furosemide (Lasix -) 20 mg PO DAILY [facility] Last Admin: 12/23/17 11:51 Dose: 20 mg Sodium Chloride (Normal Saline -) 1,000 mls @ 75 mls/hr IV [facility] Last Admin: 12/23/17 04:08 Dose: 75 mls/hr Cefoxitin Sodium 1 gm/ Sodium (Chloride) 100 mls @ 200 mls/hr IVPB Q8H-IV [facility] Last Admin: 12/23/17 17:55 Dose: 200 mls/hr Insulin Aspart (Novolog Vial Sliding Scale -) 1 vial SQ HS [facility] PRN Reason: Protocol Last Admin: 12/22/17 21:19 Dose: Not Given Insulin Aspart (Novolog Vial Sliding Scale -) 1 vial SQ TIDAC [facility] PRN Reason: Protocol Last Admin: 12/23/17 19:12 Dose: Not Given Montelukast Sodium (Singulair -) 10 mg PO HS [facility] Last Admin: 12/22/17 21:08 Dose: 10 mg Nebivolol (Bystolic -) 5 mg PO DAILY [facility] Last Admin: 12/23/17 13:24 Dose: 5 mg Ondansetron HCl (Zofran Injection) 4 mg IVPUSH Q6H PRN PRN Reason: NAUSEA Pantoprazole Sodium (Protonix Iv) 40 mg IVPUSH DAILY [facility] Last Admin: 12/23/17 11:53 Dose: 40 mg Roflumilast (Daliresp -) 500 mcg PO DAILY [facility] Last Admin: 12/23/17 13:24 Dose: 500 mcg Tiotropium [place] (Spiriva -) 1 puff IH DAILY [facility] Last Admin: 12/23/17 11:54 Dose: Not Given Valsartan (Diovan -) 320 mg PO DAILY [facility] Last Admin: 12/23/17 11:51 Dose: 320 mg - Objective Vital Signs: Vital Signs Temperature 97.4 F L 12/23/17 17:05 Pulse Rate 60 12/23/17 17:05 Respiratory Rate 20 12/23/17 17:05 Blood Pressure 148/73 12/23/17 17:05 O2 Sat by Pulse Oximetry (%) 96 12/22/17 11:30 Constitutional: Yes: No Distress, Calm Eyes: Yes: Conjunctiva Clear HENT: Yes: Atraumatic, Other (melasma) Neck: Yes: Supple Respiratory: Yes: Regular Gastrointestinal: Yes: Normal Bowel Sounds, Soft. No: Ascites, Distention, Melena, Rectal Bleeding, Tenderness, Vomiting Neurological: Yes: Alert Labs: CBC, BMP 12/23/17 15:00 INR, PTT INR 1.01 (0.82-1.09) 12/21/17 21:10 CBCD WBC 11.0 K/mm3 (4.0-10.0) H 12/23/17 15:00 RBC 3.77 M/mm3 (3.60-5.2) 12/23/17 15:00 Hgb 11.0 GM/dL (10.7-15.3) 12/23/17 15:00 Hct 33.0 % (32.4-45.2) 12/23/17 15:00 MCV 87.7 fl (80-96) 12/23/17 15:00 MCHC 33.3 g/dl (32.0-36.0) 12/23/17 15:00 RDW 16.4 % (11.6-15.6) H 12/23/17 15:00 Plt Count 246 K/MM3 (134-434) 12/23/17 15:00 MPV 10.4 fl (7.5-11.1) 12/23/17 15:00 CMP Sodium 145 mmol/L (136-145) 12/22/17 05:55 Potassium 3.6 mmol/L (3.5-5.1) 12/22/17 05:55 Chloride 108 mmol/L (98-107) H 12/22/17 05:55 Carbon Dioxide 31 mmol/L (21-32) 12/22/17 05:55 Anion Gap 6 (8-16) L 12/22/17 05:55 BUN 24 mg/dL (7-18) H 12/22/17 05:55 Creatinine 0.9 mg/dL (0.55-1.02) 12/22/17 05:55 Creat Clearance w eGFR 47.21 (>60) 12/21/17 18:44 Calcium 9.6 mg/dL (8.5-10.1) 12/22/17 05:55 Total Bilirubin 0.8 mg/dL (0.2-1.0) D 12/21/17 18:44 AST 157 U/L (15-37) H 12/21/17 18:44 ALT 38 U/L (12-78) 12/21/17 18:44 Alkaline Phosphatase 149 U/L (45-117) H 12/21/17 18:44 Total Protein 8.8 g/dl (6.4-8.2) H 12/21/17 18:44 Albumin 4.0 g/dl (3.4-5.0) 12/21/17 18:44 Problem List - Problems (1) Melasma Code(s): L81.1 - CHLOASMA (2) Abdominal pain Code(s): R10.9 - UNSPECIFIED ABDOMINAL PAIN (3) Biliary colic Code(s): K80.50 - CALCULUS OF BILE DUCT W/O CHOLANGITIS OR CHOLECYST W/O OBST (4) Dyskinesia of gallbladder Code(s): K82.8 - OTHER SPECIFIED DISEASES OF GALLBLADDER (5) Enlarged gallbladder Code(s): K82.8 - OTHER SPECIFIED DISEASES OF GALLBLADDER (6) N&V (nausea and vomiting) Code(s): R11.2 - NAUSEA WITH VOMITING, UNSPECIFIED (7) Diabetes Code(s): E11.9 - TYPE 2 DIABETES MELLITUS WITHOUT COMPLICATIONS Qualifiers: Diabetes mellitus type: type 2 Diabetes mellitus nursing home insulin use: without nursing home use Diabetes mellitus complication status: with hyperglycemia Qualified Code(s): E11.65 - Type 2 diabetes mellitus with hyperglycemia Assessment/Plan ?Cholecystitis Sx on the case for possible cholecystectomy
[2017-12-23] MEDS: MONTELUKAST NA 10 MG TABLET PO SCH (21:52)
[2017-12-23] MEDS: ATORVASTATIN CA 20 MG TABLET (FP) PO SCH (21:52)
[2017-12-23 21:55] LABS: ALBUMIN 3.2 g/dl (3.4-5.0); ANION GAP 8 (8-16); BILIRUBIN,DIRECT 0.2 mg/dL (0.0-0.2); BILIRUBIN,TOTAL 0.4 mg/dL (0.2-1.0); BLOOD UREA NITROGEN 18 mg/dL (7-18); CHLORIDE 105 mmol/L (98-107); CO2 28 mmol/L (21-32); GLUCOSE,RANDOM 196 mg/dL (74-106); POTASSIUM 3.3 mmol/L (3.5-5.1); SGOT/AST 38 U/L (15-37); SGPT/ALT 66 U/L (12-78); SODIUM 141 mmol/L (136-145); TOT PROT 7.4 g/dl (6.4-8.2)
[2017-12-23 21:56] LABS: ALK PHOS 109 U/L (45-117)
[2017-12-24] MEDS: SODIUM CHLORIDE 1,000 ML IV SCH ×2 (00:10→03:00)
[2017-12-24] MEDS: CEFOXITIN SODIUM 1 GM in SODIUM CHLORIDE 100 ML IVPB SCH ×3 (01:38→18:30)
[2017-12-24] MEDS: INSULIN SLIDING SCALE (NOVOLOG) 1 VIAL SQ SCH ×4 (06:53→22:05)
--- NOTE | 2017-12-24 08:38 | PN ---
Progress Note, Physician - Current Medication List Current Medications: Active Medications Albuterol Sulfate (Ventolin Hfa Inhaler -) 2 puff IH Q6H PRN PRN Reason: SHORT OF BREATH/WHEEZING Amlodipine Besylate (Norvasc -) 10 mg PO DAILY [facility] Last Admin: 12/23/17 11:51 Dose: 10 mg Atorvastatin Calcium (Lipitor -) 20 mg PO HS [facility] Last Admin: 12/23/17 21:52 Dose: 20 mg Budesonide/Formoterol Fumarate (Symbicort 160/4.5mcg -) 1 puff IH BID [facility] Last Admin: 12/23/17 21:53 Dose: 1 puff Febuxostat (Uloric -) 40 mg PO DAILY [facility] Last Admin: 12/23/17 13:24 Dose: 40 mg Furosemide (Lasix -) 20 mg PO DAILY [facility] Last Admin: 12/23/17 11:51 Dose: 20 mg Sodium Chloride (Normal Saline -) 1,000 mls @ 75 mls/hr IV ASDIR [facility] Last Admin: 12/24/17 03:00 Dose: Not Given Cefoxitin Sodium 1 gm/ Sodium (Chloride) 100 mls @ 200 mls/hr IVPB Q8H-IV [facility] Last Admin: 12/24/17 01:38 Dose: 200 mls/hr Insulin Aspart (Novolog Vial Sliding Scale -) 1 vial SQ [facility] PRN Reason: Protocol Last Admin: 12/23/17 21:52 Dose: Not Given Insulin Aspart (Novolog Vial Sliding Scale -) 1 vial SQ TIDAC [facility] PRN Reason: Protocol Last Admin: 12/24/17 06:53 Dose: Not Given Montelukast Sodium (Singulair -) 10 mg PO [facility] Last Admin: 12/23/17 21:52 Dose: 10 mg Nebivolol (Bystolic -) 5 mg PO DAILY [facility] Last Admin: 12/23/17 13:24 Dose: 5 mg Ondansetron HCl (Zofran Injection) 4 mg IVPUSH Q6H PRN PRN Reason: NAUSEA Pantoprazole Sodium (Protonix Iv) 40 mg IVPUSH DAILY [facility] Last Admin: 12/23/17 11:53 Dose: 40 mg Roflumilast (Daliresp -) 500 mcg PO DAILY [facility] Last Admin: 12/23/17 13:24 Dose: 500 mcg Tiotropium [place] (Spiriva -) 1 puff IH DAILY [facility] Last Admin: 12/23/17 11:54 Dose: Not Given Valsartan (Diovan -) 320 mg PO DAILY [facility] Last Admin: 12/23/17 11:51 Dose: 320 mg - Objective Vital Signs: Vital Signs Temperature 98.1 F 12/24/17 07:53 Pulse Rate 65 12/24/17 07:53 Respiratory Rate 20 12/24/17 07:53 Blood Pressure 152/72 12/24/17 07:53 O2 Sat by Pulse Oximetry (%) 96 12/22/17 11:30 Cardiovascular: Yes: S1, S2 Respiratory: Yes: Regular, CTA Bilaterally Gastrointestinal: Yes: Normal Bowel Sounds, Soft Labs: INR, PTT INR 1.01 (0.82-1.09) 12/21/17 21:10 Problem List - Problems (1) Abdominal pain Assessment/Plan: -RESOLVED -MRCP -SURGICAL CONSULT NOTED--FOR THE OR CARDIO FOR PREOP ASSESSMENT Code(s): R10.9 - UNSPECIFIED ABDOMINAL PAIN (2) Enlarged gallbladder Assessment/Plan: MRCP ABX PER ID FOLLOW LABS Code(s): K82.8 - OTHER SPECIFIED DISEASES OF GALLBLADDER (3) Diabetes Assessment/Plan: BGM Code(s): E11.9 - TYPE 2 DIABETES MELLITUS WITHOUT COMPLICATIONS Qualifiers: Diabetes mellitus type: type 2 Diabetes mellitus assisted insulin use: without assisted use Diabetes mellitus complication status: with hyperglycemia Qualified Code(s): E11.65 - Type 2 diabetes mellitus with hyperglycemia (4) HTN (hypertension) Assessment/Plan: WITH ABNORMAL EKG CXR--ENLARGED HEART RPT EKG ECHO CARDIO Code(s): I10 - ESSENTIAL (PRIMARY) HYPERTENSION
[2017-12-24 08:39] LABS: BASO % 0.6 % (0-2.0); EOS % 1.4 % (0-4.5); HEMATOCRIT 31.2 % (32.4-45.2); HEMOGLOBIN 10.5 GM/dL (10.7-15.3); LYMPH % 17.7 % (8-40); MCH 29.6 pg (25.7-33.7); MCHC 33.5 g/dl (32.0-36.0); MEAN CELL VOLUME 88.2 fl (80-96); MEAN PLT VOLUME 10.3 fl (7.5-11.1); MONO % 8.5 % (3.8-10.2); NEUT % 71.8 % (42.8-82.8); PLATELET COUNT 238 K/MM3 (134-434); RBC 3.54 M/mm3 (3.60-5.2); RDW 16.1 % (11.6-15.6); WHITE BLOOD COUNT 9.2 K/mm3 (4.0-10.0)
[2017-12-24 09:14] LABS: INR 1.09 (0.82-1.09); PROTHROMBIN TIME (PATIENT) 12.3 SEC (9.98-11.88)
[2017-12-24 09:30] LABS: ALBUMIN 2.7 g/dl (3.4-5.0); ALK PHOS 95 U/L (45-117); ANION GAP 9 (8-16); BILIRUBIN,TOTAL 0.4 mg/dL (0.2-1.0); BLOOD UREA NITROGEN 14 mg/dL (7-18); CALCIUM 8.5 mg/dL (8.5-10.1); CHLORIDE 108 mmol/L (98-107); CO2 27 mmol/L (21-32); CREATININE 0.8 mg/dL (0.55-1.02); GLUCOSE,RANDOM 99 mg/dL (74-106); POTASSIUM 3.1 mmol/L (3.5-5.1); SGOT/AST 30 U/L (15-37); SGPT/ALT 48 U/L (12-78); SODIUM 144 mmol/L (136-145); TOT PROT 6.6 g/dl (6.4-8.2)
--- NOTE | 2017-12-24 10:18 | PN ---
Progress Note, Physician History of Present Illness: Awake, alert Seated in bed Denies abdominal pain, N/V No c/o fever/ chills WBC improved BC (-) - Current Medication List Current Medications: Active Medications Albuterol Sulfate (Ventolin Hfa Inhaler -) 2 puff IH Q6H PRN PRN Reason: SHORT OF BREATH/WHEEZING Amlodipine Besylate (Norvasc -) 10 mg PO DAILY [facility] Last Admin: 12/23/17 11:51 Dose: 10 mg Atorvastatin Calcium (Lipitor -) 20 mg PO HS [facility] Last Admin: 12/23/17 21:52 Dose: 20 mg Budesonide/Formoterol Fumarate (Symbicort 160/4.5mcg -) 1 puff IH BID [facility] Last Admin: 12/23/17 21:53 Dose: 1 puff Febuxostat (Uloric -) 40 mg PO DAILY [facility] Last Admin: 12/23/17 13:24 Dose: 40 mg Furosemide (Lasix -) 20 mg PO DAILY [facility] Last Admin: 12/23/17 11:51 Dose: 20 mg Sodium Chloride (Normal Saline -) 1,000 mls @ 75 mls/hr IV ASDIR [facility] Last Admin: 12/24/17 03:00 Dose: Not Given Cefoxitin Sodium 1 gm/ Sodium (Chloride) 100 mls @ 200 mls/hr IVPB Q8H-IV [facility] Last Admin: 12/24/17 01:38 Dose: 200 mls/hr Insulin Aspart (Novolog Vial Sliding Scale -) 1 vial SQ HS [facility] PRN Reason: Protocol Last Admin: 12/23/17 21:52 Dose: Not Given Insulin Aspart (Novolog Vial Sliding Scale -) 1 vial SQ TIDAC [facility] PRN Reason: Protocol Last Admin: 12/24/17 06:53 Dose: Not Given Montelukast Sodium (Singulair -) 10 mg PO HS [facility] Last Admin: 12/23/17 21:52 Dose: 10 mg Nebivolol (Bystolic -) 5 mg PO DAILY [facility] Last Admin: 12/23/17 13:24 Dose: 5 mg Ondansetron HCl (Zofran Injection) 4 mg IVPUSH Q6H PRN PRN Reason: NAUSEA Pantoprazole Sodium (Protonix Iv) 40 mg IVPUSH DAILY [facility] Last Admin: 12/23/17 11:53 Dose: 40 mg Roflumilast (Daliresp -) 500 mcg PO DAILY [facility] Last Admin: 12/23/17 13:24 Dose: 500 mcg Tiotropium [place] (Spiriva -) 1 puff IH DAILY [facility] Last Admin: 12/23/17 11:54 Dose: Not Given Valsartan (Diovan -) 320 mg PO DAILY [facility] Last Admin: 12/23/17 11:51 Dose: 320 mg - Objective Vital Signs: Vital Signs Temperature 98.1 F 12/24/17 07:53 Pulse Rate 65 12/24/17 07:53 Respiratory Rate 20 12/24/17 07:53 Blood Pressure 152/72 12/24/17 07:53 O2 Sat by Pulse Oximetry (%) 96 12/22/17 11:30 Constitutional: Yes: No Distress Eyes: Yes: Conjunctiva Clear Cardiovascular: Yes: Regular Rate and Rhythm, S1, S2 Respiratory: Yes: CTA Bilaterally Gastrointestinal: Yes: Normal Bowel Sounds, Soft, Abdomen, Obese. No: Tenderness Labs: CBC, BMP 12/24/17 07:00 12/24/17 07:00 INR, PTT INR 1.09 (0.82-1.09) 12/24/17 07:00 Assessment/Plan Acute v. chronic cholecystitis Leukocytosis-improved Diabetes mellitus OBS For cholecystectomy Continue cefoxitin
[2017-12-24] MEDS: VALSARTAN 160 MG TABLET (UD) PO SCH (11:03)
[2017-12-24] MEDS: PANTOPRAZOLE SODIUM 40 MG VIAL IVPUSH SCH (11:03)
[2017-12-24] MEDS: amLODIPine BESYLATE 10 MG TABLET (FP) PO SCH (11:03)
[2017-12-24] MEDS: FUROSEMIDE 20 MG TABLET (FP) PO SCH (11:03)
[2017-12-24] MEDS: NEBIVOLOL 5 MG TABLET (FP) PO SCH (11:04)
[2017-12-24] MEDS: FEBUXOSTAT 40 MG TAB PO SCH (11:05)
[2017-12-24] MEDS: ROFLUMILAST 500 MCG TABLET PO SCH (11:05)
[2017-12-24] MEDS: BUDESONIDE/FORMETEROL FUMARATE 160/4.5 mcg INHALER IH SCH ×2 (11:49→21:59)
--- NOTE | 2017-12-24 12:58 | CON.CARD ---
Consult Consult Specialty:: cardiology Referred by:: Sophia Petersen Reason for Consultation:: Pre-Op consultation - History of Present Illness Chief Complaint: Abdominal pain History of Present Illness: The patient is an 87-year-old pleasantly demented female, with a history of diabetes, hypertension, hyperlipidemia, COPD, asthma, admitted with abdominal pains. The plan is for laparoscopic cholecystectomy. The patient is sitting comfortably in the bedside. Denies chest pains and shortness of breath. No palpitations. 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 Cardio/Vascular: Yes: HTN, Hyperlipdemia Pulmonary: Yes: COPD Endocrine: Yes: Diabetes Mellitus - Alcohol/Substance Use Hx Alcohol Use: No - Smoking History Smoking history: Never smoked Have you smoked in the past 12 months: No Home Medications - Allergies Allergies/Adverse Reactions: Allergies Allergy/AdvReac Type Severity Reaction Status Date / Time No Known Allergies Allergy Verified 12/21/17 18:40 - Home Medications Home Medications: Ambulatory Orders Albuterol Sulfate Inhaler - [Ventolin HFA Inhaler -] 1 - 2 inh PO QID 09/12/17 Amlodipine Bes/Olmesartan Med [Amlodipine-Olmesartan 10-40 mg] 1 each PO DAILY 09/12/17 Atorvastatin Ca [Lipitor] 20 mg PO HS 09/12/17 Bimatoprost [Lumigan] 1 drop IO DAILY 09/12/17 Brimonidine Tartrate/Timolol [Combigan 0.2%-0.5% Eye Drops] 5 ml OP HS 09/12/17 Budesonide/Formeterol Fumarate [SYMBICORT 160/4.5mcg -] 1 inh PO DAILY 09/12/17 Febuxostat [Uloric] 40 mg PO DAILY 09/12/17 Furosemide [Lasix -] 20 mg PO DAILY 09/12/17 Icosapent Ethyl [Vascepa] 1 gm PO DAILY 09/12/17 Montelukast Na [Singulair -] 10 mg PO HS 09/12/17 Omeprazole 20 mg PO DAILY 09/12/17 Roflumilast [Daliresp] 500 mcg PO DAILY 09/12/17 Saxagliptin HCl [Onglyza] 5 mg PO DAILY 09/12/17 Umeclidinium [place] [Incruse Ellipta] 62.5 mcg IH PRN PRN 09/12/17 Insulin Sliding Scale [Novolog Vial Sliding Scale -] 1 vial SQ ACHS units 09/15 Nebivolol [Bystolic -] 5 mg PO DAILY #30 tab 09/15/17 Insulin Detemir [Levemir Flextouch] 5 unit SQ HS 12/21/17 Family Disease History - Family Disease History Family Disease History: Diabetes: Daughter Review of Systems - Review of Systems Constitutional: reports: Malaise Eyes: reports: No Symptoms HENT: reports: No Symptoms Neck: reports: No Symptoms Cardiovascular: reports: No Symptoms Respiratory: reports: No Symptoms Gastrointestinal: reports: Abdominal Pain Genitourinary: reports: No Symptoms Breasts: reports: No Symptoms Reported Musculoskeletal: reports: No Symptoms Integumentary: reports: No Symptoms Neurological: reports: No Symptoms Endocrine: reports: No Symptoms Hematology/Lymphatic: reports: No Symptoms Psychiatric: reports: No Symptoms Vital Signs: Vital Signs Temperature 98.1 F 12/24/17 07:53 Pulse Rate 65 12/24/17 07:53 Respiratory Rate 20 12/24/17 07:53 Blood Pressure 152/72 12/24/17 07:53 O2 Sat by Pulse Oximetry (%) 96 12/22/17 11:30 Constitutional: Yes: Well Nourished, No Distress, Calm Eyes: Yes: WNL, Conjunctiva Clear, EOM Intact HENT: Yes: WNL, Atraumatic, Normocephalic Neck: Yes: WNL, Supple, Trachea Midline Respiratory: Yes: WNL, Regular, CTA Bilaterally Gastrointestinal: Yes: Soft, Tenderness Renal/: Yes: WNL Cardiovascular: Yes: WNL, Regular Rate and Rhythm, Bradycardia JVD: No Carotid Bruit: No PMI: Non-Displaced Heart Sounds: Yes: S1, S2 Murmur: Yes: Systolic Murmur, Grade 2 Musculoskeletal: Yes: WNL Extremities: Yes: WNL Edema: No Peripheral Pulses: 1+ Left Carotid, 1+ Right Carotid, 1+ Left Femoral, 1+ Right Femoral, 1+ Left Popliteal, 1+ Right Popliteal, 1+ Left Doralis Pedis, 1+ Right Dorsalis Pedis Integumentary: Yes: WNL Neurological: Yes: WNL ...Motor Strength: WNL Psychiatric: Yes: WNL - Other Data Labs, Other Data: CBC, BMP 12/24/17 07:00 12/24/17 07:00 INR, PTT INR 1.09 (0.82-1.09) 12/24/17 07:00 Assessment/Plan 87-year-old female with dementia, diabetes, hypertension, COPD, mild asthma, now admitted with abdominal pains, likely cholecystitis, wheezing a cholecystectomy. Her ECG showed sinus bradycardia at 58, with an old septal infarct. No acute ECG changes. The patient reports absolutely no cardiac symptoms. Denies chest pains and shortness of breath. I believe that the patient is medically optimized for surgery. Please make sure that she receives her blood pressure medications in the morning of the surgery, and perioperatively as possible. Keep hemoglobin around 10.0. Please replete potassium. Keep it above 4.0. Please achieve good pain control perioperatively. Please proceed with surgery as planned. We will see postoperatively.
[2017-12-24] MEDS: TIOTROPIUM BROMIDE 18 MCG CAPSULES IH SCH (13:16)
[2017-12-24] MEDS: POTASSIUM CHLORIDE 10 MEQ in SODIUM CHLORIDE 100 ML IVPB SCH ×2 (13:16→14:44)
[2017-12-24] MEDS: POTASSIUM CHLORIDE 20 MEQ in SODIUM CHLORIDE 0.45% 1,000 ML IVPB SCH (13:19)
--- NOTE | 2017-12-24 13:20 | PN ---
Progress Note, Physician Chief Complaint: abdominal pain History of Present Illness: 87 yo female PMH HTN, DM type 2, HLD, COPD, demntia presented to the emergency department with abdominal pain since 12/20 in the evening. Pain got worse throughout day on 12/21 associated with nausea and vomiting. Her pain began yesterday after a meal. Noted on exam in ED to have RUQ pain but improved this morning. Since treatment reports improvement in pain and resolution of nausea/ vomiting. Denies fever and chills, no jaundice, no history or similar episodes. CT scan of abdomen and pelvis shows distended 9cm gallbladder with minimal changes and CBD 9mm, US confirms distended gallbladder with with CBD 9mm. WBC elevated to 15.7 with minimal resolution after hydration. We were asked to assess. - Current Medication List Current Medications: Active Medications Albuterol Sulfate (Ventolin Hfa Inhaler -) 2 puff IH Q6H PRN PRN Reason: SHORT OF BREATH/WHEEZING Amlodipine Besylate (Norvasc -) 10 mg PO DAILY [facility] Last Admin: 12/24/17 11:03 Dose: 10 mg Atorvastatin Calcium (Lipitor -) 20 mg PO HS [facility] Last Admin: 12/23/17 21:52 Dose: 20 mg Budesonide/Formoterol Fumarate (Symbicort 160/4.5mcg -) 1 puff IH BID [facility] Last Admin: 12/24/17 11:49 Dose: 1 puff Febuxostat (Uloric -) 40 mg PO DAILY [facility] Last Admin: 12/24/17 11:05 Dose: 40 mg Furosemide (Lasix -) 20 mg PO DAILY [facility] Last Admin: 12/24/17 11:03 Dose: 20 mg Cefoxitin Sodium 1 gm/ Sodium (Chloride) 100 mls @ 200 mls/hr IVPB Q8H-IV [facility] Last Admin: 12/24/17 11:04 Dose: 200 mls/hr Potassium Chloride 10 meq/ (Sodium Chloride) 105 mls @ 105 mls/hr IVPB Q60M [facility] Stop: 12/24/17 13:59 Last Admin: 12/24/17 13:16 Dose: 105 mls/hr Potassium Chloride 20 meq/ (Sodium Chloride) 1,010 mls @ 42 mls/hr IVPB Q24H [facility] Last Admin: 12/24/17 13:19 Dose: 42 mls/hr Insulin Aspart (Novolog Vial Sliding Scale -) 1 vial SQ HS [facility] PRN Reason: Protocol Last Admin: 12/23/17 21:52 Dose: Not Given Insulin Aspart (Novolog Vial Sliding Scale -) 1 vial SQ TIDAC [facility] PRN Reason: Protocol Last Admin: 12/24/17 12:13 Dose: Not Given Montelukast Sodium (Singulair -) 10 mg PO HS [facility] Last Admin: 12/23/17 21:52 Dose: 10 mg Nebivolol (Bystolic -) 5 mg PO DAILY [facility] Last Admin: 12/24/17 11:04 Dose: 5 mg Ondansetron HCl (Zofran Injection) 4 mg IVPUSH Q6H PRN PRN Reason: NAUSEA Pantoprazole Sodium (Protonix Iv) 40 mg IVPUSH DAILY [facility] Last Admin: 12/24/17 11:03 Dose: 40 mg Roflumilast (Daliresp -) 500 mcg PO DAILY [facility] Last Admin: 12/24/17 11:05 Dose: 500 mcg Tiotropium [place] (Spiriva -) 1 puff IH DAILY [facility] Last Admin: 12/24/17 13:16 Dose: 1 puff Valsartan (Diovan -) 320 mg PO DAILY [facility] Last Admin: 12/24/17 11:03 Dose: 320 mg - Objective Vital Signs: Vital Signs Temperature 98.1 F 12/24/17 07:53 Pulse Rate 65 12/24/17 07:53 Respiratory Rate 20 12/24/17 07:53 Blood Pressure 152/72 12/24/17 07:53 O2 Sat by Pulse Oximetry (%) 96 12/22/17 11:30 Constitutional: Yes: Well Nourished, No Distress, Calm, Obese Eyes: Yes: Conjunctiva Clear, EOM Intact HENT: Yes: Atraumatic, Normocephalic Neck: Yes: Supple, Trachea Midline Cardiovascular: Yes: Regular Rate and Rhythm, S1, S2 Respiratory: Yes: Regular, CTA Bilaterally Gastrointestinal: Yes: Normal Bowel Sounds, Soft, Abdomen, Obese, Tenderness. No: Distention Genitourinary: No: CVA Tenderness - Left, CVA Tenderness - Right Neurological: Yes: Alert, Oriented Psychiatric: Yes: Alert, Oriented Labs: CBC, BMP 12/24/17 07:00 12/24/17 07:00 INR, PTT INR 1.09 (0.82-1.09) 12/24/17 07:00 CBC,CMP WBC 9.2 K/mm3 (4.0-10.0) 12/24/17 07:00 RBC 3.54 M/mm3 (3.60-5.2) L 12/24/17 07:00 Hgb 10.5 GM/dL (10.7-15.3) L 12/24/17 07:00 Hct 31.2 % (32.4-45.2) L 12/24/17 07:00 MCV 88.2 fl (80-96) 12/24/17 07:00 MCH 29.6 pg (25.7-33.7) 12/24/17 07:00 MCHC 33.5 g/dl (32.0-36.0) 12/24/17 07:00 RDW 16.1 % (11.6-15.6) H 12/24/17 07:00 Plt Count 238 K/MM3 (134-434) 12/24/17 07:00 MPV 10.3 fl (7.5-11.1) 12/24/17 07:00 Neutrophils % 71.8 % (42.8-82.8) 12/24/17 07:00 Lymphocytes % 17.7 % (8-40) 12/24/17 07:00 Monocytes % 8.5 % (3.8-10.2) 12/24/17 07:00 Eosinophils % 1.4 % (0-4.5) D 12/24/17 07:00 Basophils % 0.6 % (0-2.0) 12/24/17 07:00 Sodium 144 mmol/L (136-145) 12/24/17 07:00 Potassium 3.1 mmol/L (3.5-5.1) L 12/24/17 07:00 Chloride 108 mmol/L (98-107) H 12/24/17 07:00 Carbon Dioxide 27 mmol/L (21-32) 12/24/17 07:00 Anion Gap 9 (8-16) 12/24/17 07:00 BUN 14 mg/dL (7-18) 12/24/17 07:00 Creatinine 0.8 mg/dL (0.55-1.02) 12/24/17 07:00 Creat Clearance w eGFR > 60 (>60) 12/24/17 07:00 POC Glucometer 140 UNITS (80-120) 12/24/17 12:12 Random Glucose 99 mg/dL (74-106) 12/24/17 07:00 Hemoglobin A1c % 8.6 % (4.8-6.0) H 12/22/17 17:30 Calcium 8.5 mg/dL (8.5-10.1) 12/24/17 07:00 Phosphorus 4.2 mg/dL (2.5-4.9) 12/22/17 05:55 Magnesium 1.5 mg/dL (1.8-2.4) L 12/22/17 05:55 Total Bilirubin 0.4 mg/dL (0.2-1.0) 12/24/17 07:00 Direct Bilirubin 0.2 mg/dL (0.0-0.2) 12/23/17 15:00 AST 30 U/L (15-37) 12/24/17 07:00 ALT 48 U/L (12-78) 12/24/17 07:00 Alkaline Phosphatase 95 U/L (45-117) 12/24/17 07:00 Creatine Kinase 91 IU/L (26-192) 12/21/17 18:44 Troponin I 0.03 ng/ml (0.00-0.05) 12/21/17 18:44 Total Protein 6.6 g/dl (6.4-8.2) 12/24/17 07:00 Albumin 2.7 g/dl (3.4-5.0) L 12/24/17 07:00 Lipase 131 U/L (73-393) 12/21/17 21:00 Problem List - Problems (1) Biliary colic Assessment/Plan: 87 yo female MMP right upper quadrant and epigastric pain with nausea and vomiting, biliary colic and imaging consistent dyskinesia of GB and 9mm CBD which may be appropriate given age. He abdominal pain has since resolved. NPO and IVF hydration empiric IV antibiotics GI evaluation appreciate cardiology evaluation replete potassium Discussed with patient risks, benefits and alternatives of laparoscopic possible open ectomy, including but not limited to bleeding, infection, injury to adjacent structures, leak or injury, intraabdominal abscess, need for further procedures, ; alternatives include antibiotics, delayed or no surgery - risks of this include failure of nonoperative therapy, perforation, sepsis, recurrence, .Patient desires to proceed with operation - will take to OR for above. Informed consent signed for same.. Code(s): K80.50 - CALCULUS OF BILE DUCT W/O CHOLANGITIS OR CHOLECYST W/O OBST (2) Dyskinesia of gallbladder Code(s): K82.8 - OTHER SPECIFIED DISEASES OF GALLBLADDER (3) Abdominal pain Code(s): R10.9 - UNSPECIFIED ABDOMINAL PAIN (4) N&V (nausea and vomiting) Code(s): R11.2 - NAUSEA WITH VOMITING, UNSPECIFIED (5) Diabetes Code(s): E11.9 - TYPE 2 DIABETES MELLITUS WITHOUT COMPLICATIONS Qualifiers: Diabetes mellitus type: type 2 Diabetes mellitus extermination inspector insulin use: without [facility] use Diabetes mellitus complication status: with hyperglycemia Qualified Code(s): E11.65 - Type 2 diabetes mellitus with hyperglycemia (6) HTN (hypertension) Code(s): I10 - ESSENTIAL (PRIMARY) HYPERTENSION
--- NOTE | 2017-12-24 15:51 | EKG ---
Test Reason : Blood Pressure : / mmHG Vent. Rate : 062 BPM Atrial Rate : 062 BPM P-R Int : 184 ms QRS Dur : 102 ms QT Int : 434 ms P-R-T Axes : 028 -09 036 degrees QTc Int : 440 ms NORMAL SINUS RHYTHM ANTEROSEPTAL INFARCT (CITED ON OR BEFORE 11-SEP-2017) ABNORMAL ECG Confirmed by MD KATZ MOYSES ([id number]) on 12/24/2017 3:50:58 PM Referred By: Confirmed By:VIRI KATZ MD
[2017-12-24] MEDS: ATORVASTATIN CA 20 MG TABLET (FP) PO SCH (21:59)
[2017-12-24] MEDS: MONTELUKAST NA 10 MG TABLET PO SCH (21:59)
[2017-12-25] MEDS: CEFOXITIN SODIUM 1 GM in SODIUM CHLORIDE 100 ML IVPB SCH ×3 (01:43→18:36)
[2017-12-25] MEDS: INSULIN SLIDING SCALE (NOVOLOG) 1 VIAL SQ SCH ×3 (06:10→19:11)
[2017-12-25 08:01] LABS: BASO % 0.6 % (0-2.0); EOS % 1.8 % (0-4.5); HEMATOCRIT 32.3 % (32.4-45.2); HEMOGLOBIN 10.8 GM/dL (10.7-15.3); LYMPH % 20.9 % (8-40); MCH 29.2 pg (25.7-33.7); MCHC 33.3 g/dl (32.0-36.0); MEAN CELL VOLUME 87.9 fl (80-96); MEAN PLT VOLUME 9.9 fl (7.5-11.1); MONO % 6.7 % (3.8-10.2); PLATELET COUNT 242 K/MM3 (134-434); RBC 3.68 M/mm3 (3.60-5.2); RDW 16.2 % (11.6-15.6); WHITE BLOOD COUNT 9.1 K/mm3 (4.0-10.0)
--- NOTE | 2017-12-25 10:02 | PN ---
Progress Note, Physician Chief Complaint: ID Cefoxitin continues - Current Medication List Current Medications: Active Medications Albuterol Sulfate (Ventolin Hfa Inhaler -) 2 puff IH Q6H PRN PRN Reason: SHORT OF BREATH/WHEEZING Amlodipine Besylate (Norvasc -) 10 mg PO DAILY [facility] Last Admin: 12/24/17 11:03 Dose: 10 mg Atorvastatin Calcium (Lipitor -) 20 mg PO [facility] Last Admin: 12/24/17 21:59 Dose: 20 mg Budesonide/Formoterol Fumarate (Symbicort 160/4.5mcg -) 1 puff IH BID [facility] Last Admin: 12/24/17 21:59 Dose: 1 puff Febuxostat (Uloric -) 40 mg PO DAILY [facility] Last Admin: 12/24/17 11:05 Dose: 40 mg Furosemide (Lasix -) 20 mg PO DAILY [facility] Last Admin: 12/24/17 11:03 Dose: 20 mg Cefoxitin Sodium 1 gm/ Sodium (Chloride) 100 mls @ 200 mls/hr IVPB Q8H-IV [facility] Last Admin: 12/25/17 01:43 Dose: 200 mls/hr Potassium Chloride 20 meq/ (Sodium Chloride) 1,010 mls @ 42 mls/hr IVPB Q24H [facility] Last Admin: 12/24/17 13:19 Dose: 42 mls/hr Insulin Aspart (Novolog Vial Sliding Scale -) 1 vial SQ [facility] PRN Reason: Protocol Last Admin: 12/24/17 22:05 Dose: Not Given Insulin Aspart (Novolog Vial Sliding Scale -) 1 vial SQ TIDAC [facility] PRN Reason: Protocol Last Admin: 12/25/17 06:10 Dose: Not Given Montelukast Sodium (Singulair -) 10 mg PO [facility] Last Admin: 12/24/17 21:59 Dose: 10 mg Nebivolol (Bystolic -) 5 mg PO DAILY [facility] Last Admin: 12/24/17 11:04 Dose: 5 mg Ondansetron HCl (Zofran Injection) 4 mg IVPUSH Q6H PRN PRN Reason: NAUSEA Pantoprazole Sodium (Protonix Iv) 40 mg IVPUSH DAILY [facility] Last Admin: 12/24/17 11:03 Dose: 40 mg Roflumilast (Daliresp -) 500 mcg PO DAILY [facility] Last Admin: 12/24/17 11:05 Dose: 500 mcg Tiotropium [place] (Spiriva -) 1 puff IH DAILY [facility] Last Admin: 12/24/17 13:16 Dose: 1 puff Valsartan (Diovan -) 320 mg PO DAILY [facility] Last Admin: 12/24/17 11:03 Dose: 320 mg - Objective Vital Signs: Vital Signs Temperature 97.4 F L 12/25/17 06:12 Pulse Rate 64 12/25/17 06:12 Respiratory Rate 20 12/25/17 06:12 Blood Pressure 153/69 12/25/17 06:12 O2 Sat by Pulse Oximetry (%) 96 12/22/17 11:30 Constitutional: Yes: No Distress Cardiovascular: Yes: S1, S2 Respiratory: Yes: WNL, Regular, CTA Bilaterally Gastrointestinal: Yes: WNL, Normal Bowel Sounds, Soft. No: Tenderness, Tenderness, Rebound Edema: No Labs: CBC, BMP 12/25/17 06:30 INR, PTT INR 1.09 (0.82-1.09) 12/24/17 07:00 Assessment/Plan Microbiology 12/22/17 10:06 Blood - Peripheral Venous Blood Culture - Preliminary NO GROWTH OBTAINED AFTER 48 HOURS, INCUBATION TO CONTINUE FOR 3 DAYS. 12/22/17 10:06 Blood - Peripheral Venous Blood Culture - Preliminary NO GROWTH OBTAINED AFTER 48 HOURS, INCUBATION TO CONTINUE FOR 3 DAYS. Laboratory Tests 12/24/17 12/25/17 12/25/17 07:00 06:30 06:30 WBC 9.1 Hgb 10.8 Hct 32.3 L Plt Count 242 BUN 14 Pending Creatinine 0.8 Pending Assessment Cholecystitis in this diabetic female Afebrile Plan Continue antibiotic. For surgery Kindly recall as needed Adriana Pimentel
[2017-12-25 10:04] LABS: CHLORIDE 107 mmol/L (98-107); POTASSIUM 3.1 mmol/L (3.5-5.1); SODIUM 142 mmol/L (136-145)
[2017-12-25 10:18] LABS: ALBUMIN 2.7 g/dl (3.4-5.0); ALK PHOS 101 U/L (45-117); ANION GAP 10 (8-16); BILIRUBIN,TOTAL 0.5 mg/dL (0.2-1.0); BLOOD UREA NITROGEN 10 mg/dL (7-18); CALCIUM 8.6 mg/dL (8.5-10.1); CO2 25 mmol/L (21-32); CREATININE 0.8 mg/dL (0.55-1.02); GLUCOSE,RANDOM 113 mg/dL (74-106); SGOT/AST 29 U/L (15-37); SGPT/ALT 47 U/L (12-78); TOT PROT 6.4 g/dl (6.4-8.2)
--- NOTE | 2017-12-25 10:53 | PN ---
Progress Note, Physician Chief Complaint: Abdominal pain, nausea, vomiting History of Present Illness: Acute vs chronic cholecystitis seen by surgery -on iVF and IV abx cleared by cardiology -for OR today son at bedside NAD, denies any abdominal pain, N/V - Current Medication List Current Medications: Active Medications Albuterol Sulfate (Ventolin Hfa Inhaler -) 2 puff IH Q6H PRN PRN Reason: SHORT OF BREATH/WHEEZING Amlodipine Besylate (Norvasc -) 10 mg PO DAILY [facility] Last Admin: 12/24/17 11:03 Dose: 10 mg Atorvastatin Calcium (Lipitor -) 20 mg PO HS [facility] Last Admin: 12/24/17 21:59 Dose: 20 mg Budesonide/Formoterol Fumarate (Symbicort 160/4.5mcg -) 1 puff IH BID [facility] Last Admin: 12/24/17 21:59 Dose: 1 puff Febuxostat (Uloric -) 40 mg PO DAILY [facility] Last Admin: 12/24/17 11:05 Dose: 40 mg Furosemide (Lasix -) 20 mg PO DAILY [facility] Last Admin: 12/24/17 11:03 Dose: 20 mg Cefoxitin Sodium 1 gm/ Sodium (Chloride) 100 mls @ 200 mls/hr IVPB Q8H-IV [facility] Last Admin: 12/25/17 01:43 Dose: 200 mls/hr Potassium Chloride 20 meq/ (Sodium Chloride) 1,010 mls @ 42 mls/hr IVPB Q24H [facility] Last Admin: 12/24/17 13:19 Dose: 42 mls/hr Insulin Aspart (Novolog Vial Sliding Scale -) 1 vial SQ HS [facility] PRN Reason: Protocol Last Admin: 12/24/17 22:05 Dose: Not Given Insulin Aspart (Novolog Vial Sliding Scale -) 1 vial SQ TIDAC [facility] PRN Reason: Protocol Last Admin: 12/25/17 06:10 Dose: Not Given Montelukast Sodium (Singulair -) 10 mg PO [facility] Last Admin: 12/24/17 21:59 Dose: 10 mg Nebivolol (Bystolic -) 5 mg PO DAILY [facility] Last Admin: 12/24/17 11:04 Dose: 5 mg Ondansetron HCl (Zofran Injection) 4 mg IVPUSH Q6H PRN PRN Reason: NAUSEA Pantoprazole Sodium (Protonix Iv) 40 mg IVPUSH DAILY [facility] Last Admin: 12/24/17 11:03 Dose: 40 mg Roflumilast (Daliresp -) 500 mcg PO DAILY [facility] Last Admin: 12/24/17 11:05 Dose: 500 mcg Tiotropium [place] (Spiriva -) 1 puff IH DAILY [facility] Last Admin: 12/24/17 13:16 Dose: 1 puff Valsartan (Diovan -) 320 mg PO DAILY [facility] Last Admin: 12/24/17 11:03 Dose: 320 mg - Objective Vital Signs: Vital Signs Temperature 97.4 F L 12/25/17 06:12 Pulse Rate 64 12/25/17 06:12 Respiratory Rate 20 12/25/17 06:12 Blood Pressure 153/69 12/25/17 06:12 O2 Sat by Pulse Oximetry (%) 96 12/22/17 11:30 Constitutional: Yes: Well Nourished, No Distress, Calm Cardiovascular: Yes: Regular Rate and Rhythm Respiratory: Yes: Regular Gastrointestinal: Yes: Hypoactive Bowel Sounds Musculoskeletal: Yes: WNL Extremities: Yes: WNL Edema: No Peripheral Pulses WNL: Yes Neurological: Yes: Alert, Oriented Psychiatric: Yes: Alert, Oriented Labs: CBC, BMP 12/25/17 06:30 12/25/17 06:30 INR, PTT INR 1.09 (0.82-1.09) 12/24/17 07:00 Problem List - Problems (1) Hypokalemia Assessment/Plan: -2/2 to NPO status -Replenish through IV KCl Code(s): E87.6 - HYPOKALEMIA (2) Abdominal pain Code(s): R10.9 - UNSPECIFIED ABDOMINAL PAIN (3) Biliary colic Assessment/Plan: -surgery consult -pain management -NPO -IVF Code(s): K80.50 - CALCULUS OF BILE DUCT W/O CHOLANGITIS OR CHOLECYST W/O OBST (4) Diabetes Assessment/Plan: -uncontrolled -IVF with D5, until NPO status is resolved -endocrinology consult -Novolog sliding scale Code(s): E11.9 - TYPE 2 DIABETES MELLITUS WITHOUT COMPLICATIONS Qualifiers: Diabetes mellitus type: type 2 Diabetes mellitus watermelon inspector insulin use: without [facility] use Diabetes mellitus complication status: with hyperglycemia Qualified Code(s): E11.65 - Type 2 diabetes mellitus with hyperglycemia Assessment/Plan see problem list
[2017-12-25] MEDS: ROFLUMILAST 500 MCG TABLET PO SCH ×2 (11:00→13:01)
[2017-12-25] MEDS ORDERED: PT OWN MED DRAWER 7, Y5N ONE ×4 (11:34→19:23)
[2017-12-25] MEDS: VALSARTAN 160 MG TABLET (UD) PO SCH (11:39)
[2017-12-25] MEDS: FUROSEMIDE 20 MG TABLET (FP) PO SCH (11:39)
[2017-12-25] MEDS: amLODIPine BESYLATE 10 MG TABLET (FP) PO SCH (11:39)
[2017-12-25] MEDS: TIOTROPIUM BROMIDE 18 MCG CAPSULES IH SCH (11:39)
[2017-12-25] MEDS: BUDESONIDE/FORMETEROL FUMARATE 160/4.5 mcg INHALER IH SCH ×2 (11:45→22:36)
[2017-12-25] MEDS: PANTOPRAZOLE SODIUM 40 MG VIAL IVPUSH SCH (11:45)
[2017-12-25] MEDS: POTASSIUM CHLORIDE 10 MEQ in SODIUM CHLORIDE 100 ML IVPB SCH ×3 (12:40→22:37)
[2017-12-25] MEDS: POTASSIUM CHLORIDE 20 MEQ in SODIUM CHLORIDE 0.45% 1,000 ML IVPB SCH (12:42)
[2017-12-25] MEDS: NEBIVOLOL 5 MG TABLET (FP) PO SCH ×2 (13:01→13:30)
[2017-12-25] MEDS: FEBUXOSTAT 40 MG TAB PO SCH (13:01)
[2017-12-25] MEDS ORDERED: MIDAZOLAM HCL 2 MG/2 ML SINGLE DOSE VIAL ONE (13:39)
[2017-12-25] MEDS ORDERED: fentaNYL CITRATE 250 MCG/5 ML VIAL ONE (13:39)
[2017-12-25] MEDS ORDERED: PROPOFOL 20 ML ONE (13:40)
[2017-12-25] MEDS ORDERED: ROCURONIUM BROMIDE 50 MG/5 ML VIAL ONE (13:40)
[2017-12-25] MEDS ORDERED: LIDOCAINE HCL/PF 2% SDV 5ML VIAL ONE (13:40)
[2017-12-25] MEDS ORDERED: DEXAMETHASONE SOD PHOSPHATE 4 MG/1 ML VIAL ONE (13:40)
[2017-12-25] MEDS ORDERED: BUPIVACAINE HCL/PF 0.5% (5MG/ML) 10 ML VIAL ONE (14:36)
[2017-12-25] MEDS ORDERED: GLYCOPYRROLATE 0.2 MG/1 ML VIAL ONE ×3 (14:45→14:46)
[2017-12-25] MEDS ORDERED: NEOSTIGMINE METHYLSULFATE 0.5 MG/ML - 10 ML MDV ONE (14:45)
[2017-12-25] MEDS ORDERED: BUPIVACAINE HCL/PF 0.5% (5MG/ML) 10 ML VIAL IJ ONE (15:15)
[2017-12-25] MEDS ORDERED: IBUPROFEN 600 MG TABLET (FP) PO PRN ×2 (15:32→16:54)
[2017-12-25] MEDS ORDERED: ACETAMINOPHEN 325 MG TABLET (FP) PO PRN ×2 (15:32→16:54)
[2017-12-25] MEDS ORDERED: morphine SULFATE 4 MG/ML VIAL IVPUSH PRN ×2 (15:33→16:54)
--- NOTE | 2017-12-25 15:38 | OP ---
Operative Note - Note: Operative Date: 12/25/17 Pre-Operative Diagnosis: acute cholecystitis Operation: laparoscopic cholecystectomy Findings: distended and inflamed gallbladder, critical view identified, Post-Operative Diagnosis: Same as Pre-op Surgeon: Pasquale Thapa Pipe Bending Machine Operator: Shad Seals Anesthesiologist/SYNTHETIC CLOTH BINDING CUTTER: Deangelo Paz Anesthesia: General, Local (0.5% marcaine ) Specimens Removed: gall bladder and stones Estimated Blood Loss (mls): 20 Fluid Volume Replaced (mls): 900 (crystaloid ) Operative Report Dictated: Yes
[2017-12-25] MEDS ORDERED: ALBUTEROL SO4 18 GM HFA INHALER IH PRN (16:54)
[2017-12-25] MEDS ORDERED: ONDANSETRON 4 MG/2 ML VIAL IVPUSH PRN (16:54)
[2017-12-25] MEDS: D5-1/2NS+20 MEQ KCL - 20 MEQ/1,000 ML INFUS.BAG IV SCH (17:05)
--- NOTE | 2017-12-25 21:31 | OP ---
DATE OF OPERATION: 12/25/2017 ATTENDING SURGEON: Pasquale Thapa MD TAP PULLER: Shad Seals MD ANESTHESIOLOGIT: Deangelo Paz MD PREOPERATIVE DIAGNOSIS: Acute cholecystitis. POSTOPERATIVE DIAGNOSIS: Acute cholecystitis. PROCEDURE: Laparoscopic cholecystectomy. ANESTHESIA: General with local. Local consisted of 0.5% Marcaine. SPECIMEN REMOVED: Gallbladder with stones. ESTIMATED BLOOD LOSS: 20 mL INTRAVENOUS FLUID GIVEN: Crystalloid 900 mL. BRIEF FINDINGS: Distended gallbladder which was inflamed. Critical view was identified prior to transecting cystic duct and artery. INDICATION: Patient is an 87-year-old female presenting with right upper quadrant pain for a period of 2 days after a meal. She was noted to have a white count of approximately 15.5. She also had a left shift. Ultrasound of the abdomen revealed a distended gallbladder with a stone, gallbladder thickening. She was counseled regarding the need for a cholecystectomy. After pre parole counseling aide with her sons, they agreed for laparoscopic cholecystectomy, possible open. She was taken for the procedure after having been explained all the risks, benefits, and alternatives and having the opportunity to ask questions and have them answered to her satisfaction. DESCRIPTION OF PROCEDURE: Patient was brought to the operating room, placed in supine position with the right arm tucked and the left arm extended at 90 degrees perpendicular to the body's axis. The bilateral lower extremities had Venodynes placed. Patient was induced with general anesthesia and endotracheally intubated without incident. She had received intravenous antibiotics prior to her presentation to the operating room, last time 10 a.m. Patient then had anterior abdominal wall shaved, prepped, and draped in standard surgical fashion and blocked into a surgical field. After a formal timeout, we began with a supraumbilical Hector entry into the abdomen. A 15 blade was used to open the incision which had been marked, and it was carried down with Bovie cautery to the umbilicus. At which point, we proceeded then with identifying the midline fascia and grasping it and retracting into the surgical field. Once it was cleared, a [id number] 0 Vicryl was laid in and a figure-of-8 for ablation of the Hector entry. A size 10-mm Hector port was then introduced into the abdomen. A pneumoperitoneum was established to 15 mmHg. After completing inspection of the gallbladder with a camera, we proceeded then with a subxiphoid entry. A 5-mm port was placed. The gallbladder was retracted cranially. Two additional 5-mm ports were placed under direct visualization with care taken to allow for retraction of the gallbladder. The gallbladder was grasped at the dome and at the infundibulum, retracted both cranially and towards the right abdomen laterally. With this done, we were able to dissect inflammatory adhesions to the gallbladder itself. It appeared inflamed and edematous. We then proceeded with identification of the cystic structures. Both the cystic duct and cystic arteries were identified, and the critical view was established. At which point, a 5-mm Endoclip was used to transect first the cystic duct and then the cystic artery. With the patient in a steep reverse Trendelenburg, we were able to dissect away the gallbladder and control the cystic structures. Once complete and transected, the gallbladder itself was elevated from the hepatic plate using Bovie cautery. An L hook was used to carry through, retracting the gallbladder laterally and medially to facilitate dissection from the liver's bed. Hemostasis at the puncture bleeders was controlled with Bovie cautery. Patient then had the site irrigated of irrigation fluid and clots. The gallbladder itself was retrieved from the abdomen from the subxiphoid port, replacing the camera, re-establishing the pneumoperitoneum, and retrieving with an Endo Catch bag. Once the gallbladder was retrieved from the abdomen, the pneumoperitoneum was re-established, and hemostasis was checked on the liver's plate. The liver plate was cauterized where necessary. Clots were suctioned from the abdomen with the patient in level position. The irrigation was retrieved from the abdomen. At which point, we proceeded then with removal of the trocars under direct visualization. When it was clear that there was no issue with hemostasis, we closed the trocar sites 5-mm with 4-0 Vicryl in interrupted fashion, and the umbilical port was then, after tying the figure-of-8 closure with care taken not to interpose any additional abdominal viscera, the skin was closed with a running subcuticular 4-0 Vicryl. The skin was cleaned. Sterile dressings were placed including benzoin, Steri-Strips, and gauze sponges, and Tegaderms. Patient returned to the PACU in stable condition. She was stable throughout the procedure and tolerated the procedure well. MD COREY Espinal/[id number]
[2017-12-25] MEDS ORDERED: ATORVASTATIN CA 20 MG TABLET (FP) PO SCH (22:00)
[2017-12-25] MEDS ORDERED: INSULIN SLIDING SCALE (NOVOLOG) 1 VIAL SQ SCH (22:00)
[2017-12-25] MEDS ORDERED: MONTELUKAST NA 10 MG TABLET PO SCH (22:00)
[2017-12-26] MEDS ORDERED: PT OWN MED DRAWER 7, Y5N ONE ×2 (02:04→10:35)
[2017-12-26] MEDS: CEFOXITIN SODIUM 1 GM in SODIUM CHLORIDE 100 ML IVPB SCH ×2 (02:10→10:40)
[2017-12-26] MEDS: INSULIN SLIDING SCALE (NOVOLOG) 1 VIAL SQ SCH ×2 (06:15→12:18)
[2017-12-26 08:07] LABS: SERUM IRON SATURATION 19 % (15-55); TOTAL IRON BINDING CAPACITY 226 ug/dL (250-450); UIBC 182 ug/dL (118-369)
[2017-12-26 08:50] LABS: CHLORIDE 108 mmol/L (98-107); SODIUM 140 mmol/L (136-145)
--- NOTE | 2017-12-26 08:56 | PN ---
Progress Note (short form) - Note Progress Note: Anesthesia post op note 87 y/o F s/p GA for laparoscopic cholecystectomy POD#1, vs, alert and awake, seems comfortable, TTE in progress No anesthesia complications.
[2017-12-26 09:06] LABS: ANION GAP 5 (8-16); BLOOD UREA NITROGEN 8 mg/dL (7-18); CALCIUM 8.3 mg/dL (8.5-10.1); CO2 27 mmol/L (21-32); GLUCOSE,RANDOM 170 mg/dL (74-106); MAGNESIUM 1.4 mg/dL (1.8-2.4)
--- NOTE | 2017-12-26 09:48 | PN ---
Progress Note, Physician Chief Complaint: abdominal pain History of Present Illness: 87 yo female PMH HTN, DM type 2, HLD, COPD, demntia presented to the emergency department with abdominal pain since 12/20 in the evening. Pain got worse throughout day on 12/21 associated with nausea and vomiting. Her pain began yesterday after a meal. Noted on exam in ED to have RUQ pain but improved this morning. Since treatment reports improvement in pain and resolution of nausea/ vomiting. Denies fever and chills, no jaundice, no history or similar episodes. CT scan of abdomen and pelvis shows distended 9cm gallbladder with minimal changes and CBD 9mm, US confirms distended gallbladder with with CBD 9mm. WBC elevated to 15.7 with minimal resolution after hydration. We were asked to assess. - Current Medication List Current Medications: Active Medications Acetaminophen (Tylenol -) 650 mg PO Q6H PRN PRN Reason: FEVER Albuterol Sulfate (Ventolin Hfa Inhaler -) 2 puff IH Q6H PRN PRN Reason: SHORT OF BREATH/WHEEZING Amlodipine Besylate (Norvasc -) 10 mg PO DAILY [facility] Atorvastatin Calcium (Lipitor -) 20 mg PO HS [facility] Last Admin: 12/25/17 22:35 Dose: 20 mg Budesonide/Formoterol Fumarate (Symbicort 160/4.5mcg -) 1 puff IH BID [facility] Last Admin: 12/25/17 22:36 Dose: 1 puff Febuxostat (Uloric -) 40 mg PO DAILY [facility] Furosemide (Lasix -) 20 mg PO DAILY [facility] Cefoxitin Sodium 1 gm/ Sodium (Chloride) 100 mls @ 200 mls/hr IVPB Q8H-IV [facility] Last Admin: 12/26/17 02:10 Dose: 200 mls/hr Potassium Chloride/Dextrose/Sod Cl (D5-1/2ns+20 Meq Kcl -) 20 meq in 1,000 mls @ 83 mls/hr IV ASDIR [facility] Last Admin: 12/25/17 17:05 Dose: 0 mls Ibuprofen (Motrin -) 600 mg PO Q6H PRN PRN Reason: PAIN LEVEL 1-5 Insulin Aspart (Novolog Vial Sliding Scale -) 1 vial SQ HS [facility] PRN Reason: Protocol Last Admin: 12/25/17 22:34 Dose: Not Given Insulin Aspart (Novolog Vial Sliding Scale -) 1 vial SQ TIDAC [facility] PRN Reason: Protocol Last Admin: 12/26/17 06:15 Dose: 2 units Montelukast Sodium (Singulair -) 10 mg PO HS [facility] Last Admin: 12/25/17 22:35 Dose: 10 mg Morphine Sulfate (Morphine Sulfate) 2 mg IVPUSH Q6H PRN PRN Reason: PAIN LEVEL 7 - 10 Nebivolol (Bystolic -) 5 mg PO DAILY [facility] Ondansetron HCl (Zofran Injection) 4 mg IVPUSH Q6H PRN PRN Reason: NAUSEA Pantoprazole Sodium (Protonix Iv) 40 mg IVPUSH DAILY [facility] Roflumilast (Daliresp -) 500 mcg PO DAILY [facility] Tiotropium [place] (Spiriva -) 1 puff IH DAILY [facility] Valsartan (Diovan -) 320 mg PO DAILY [facility] - Objective Vital Signs: Vital Signs Temperature 98.1 F 12/26/17 06:36 Pulse Rate 66 12/26/17 06:36 Respiratory Rate 20 12/26/17 06:36 Blood Pressure 143/72 12/26/17 06:36 O2 Sat by Pulse Oximetry (%) 98 12/25/17 19:00 Vital Signs Period Temp Pulse Resp BP Sys/Garcia Pulse Ox Last 24 Hr 97 F-98.1 F 60-83 16-20 122-161/62-81 95-98 Constitutional: Yes: Well Nourished, No Distress, Calm, Obese Eyes: Yes: Conjunctiva Clear, EOM Intact HENT: Yes: Atraumatic, Normocephalic Neck: Yes: Supple, Trachea Midline Cardiovascular: Yes: Regular Rate and Rhythm, S1, S2. No: Murmur Respiratory: Yes: Regular, CTA Bilaterally Gastrointestinal: Yes: Normal Bowel Sounds, Soft, Abdomen, Obese. No: Tenderness ...Rectal Exam: Yes: Deferred Genitourinary: No: CVA Tenderness - Left, CVA Tenderness - Right Extremities: No: Cool, Cyanosis Edema: No Peripheral Pulses WNL: Yes Peripheral Pulses: Left Doralis Pedis: 2+, Right Dorsalis Pedis: 2+ Wound/Incision: Yes: Clean/Dry, Well Approximated, Dressing Dry and Intact. No : Bleeding Neurological: Yes: Alert, Oriented Psychiatric: Yes: Alert, Oriented Labs: CBC, BMP 12/25/17 06:30 12/26/17 07:55 INR, PTT INR 1.09 (0.82-1.09) 12/24/17 07:00 Problem List - Problems (1) Biliary colic Assessment/Plan: 87 yo female MMP right upper quadrant and epigastric pain with nausea and vomiting, biliary colic and imaging consistent dyskinesia of GB and 9mm CBD which may be appropriate given age. He abdominal pain has since resolved. POD # s/p Lap cholecysteocmy, tolertaing diet, voiding Advance diet as tolerated empiric IV antibiotics appreciate cardiology evaluation Ambulation encourage IS Discharge at the discretion of the primary team (see D/C plan) Code(s): K80.50 - CALCULUS OF BILE DUCT W/O CHOLANGITIS OR CHOLECYST W/O OBST (2) Dyskinesia of gallbladder Code(s): K82.8 - OTHER SPECIFIED DISEASES OF GALLBLADDER (3) Abdominal pain Code(s): R10.9 - UNSPECIFIED ABDOMINAL PAIN (4) N&V (nausea and vomiting) Code(s): R11.2 - NAUSEA WITH VOMITING, UNSPECIFIED (5) Diabetes Code(s): E11.9 - TYPE 2 DIABETES MELLITUS WITHOUT COMPLICATIONS Qualifiers: Diabetes mellitus type: type 2 Diabetes mellitus penitentiary insulin use: without terminal gauger supervisor use Diabetes mellitus complication status: with hyperglycemia Qualified Code(s): E11.65 - Type 2 diabetes mellitus with hyperglycemia (6) HTN (hypertension) Code(s): I10 - ESSENTIAL (PRIMARY) HYPERTENSION
--- NOTE | 2017-12-26 09:55 | PN ---
Progress Note, Physician Chief Complaint: no cp or sob s/p lap giovanny History of Present Illness: 87-year-old female with dementia, diabetes, hypertension, COPD, mild asthma, now admitted with abdominal pains, likely cholecystitis, s/p lap giovanny 12/25/17 without complications. - Current Medication List Current Medications: Active Medications Acetaminophen (Tylenol -) 650 mg PO Q6H PRN PRN Reason: FEVER Albuterol Sulfate (Ventolin Hfa Inhaler -) 2 puff IH Q6H PRN PRN Reason: SHORT OF BREATH/WHEEZING Amlodipine Besylate (Norvasc -) 10 mg PO DAILY [facility] Atorvastatin Calcium (Lipitor -) 20 mg PO HS [facility] Last Admin: 12/25/17 22:35 Dose: 20 mg Budesonide/Formoterol Fumarate (Symbicort 160/4.5mcg -) 1 puff IH BID [facility] Last Admin: 12/25/17 22:36 Dose: 1 puff Febuxostat (Uloric -) 40 mg PO DAILY [facility] Furosemide (Lasix -) 20 mg PO DAILY [facility] Cefoxitin Sodium 1 gm/ Sodium (Chloride) 100 mls @ 200 mls/hr IVPB Q8H-IV [facility] Last Admin: 12/26/17 02:10 Dose: 200 mls/hr Potassium Chloride/Dextrose/Sod Cl (D5-1/2ns+20 Meq Kcl -) 20 meq in 1,000 mls @ 83 mls/hr IV ASDIR [facility] Last Admin: 12/25/17 17:05 Dose: 0 mls Ibuprofen (Motrin -) 600 mg PO Q6H PRN PRN Reason: PAIN LEVEL 1-5 Insulin Aspart (Novolog Vial Sliding Scale -) 1 vial SQ HS [facility] PRN Reason: Protocol Last Admin: 12/25/17 22:34 Dose: Not Given Insulin Aspart (Novolog Vial Sliding Scale -) 1 vial SQ TIDAC [facility] PRN Reason: Protocol Last Admin: 12/26/17 06:15 Dose: 2 units Montelukast Sodium (Singulair -) 10 mg PO HS [facility] Last Admin: 12/25/17 22:35 Dose: 10 mg Morphine Sulfate (Morphine Sulfate) 2 mg IVPUSH Q6H PRN PRN Reason: PAIN LEVEL 7 - 10 Nebivolol (Bystolic -) 5 mg PO DAILY [facility] Ondansetron HCl (Zofran Injection) 4 mg IVPUSH Q6H PRN PRN Reason: NAUSEA Pantoprazole Sodium (Protonix Iv) 40 mg IVPUSH DAILY [facility] Roflumilast (Daliresp -) 500 mcg PO DAILY [facility] Tiotropium [place] (Spiriva -) 1 puff IH DAILY [facility] Valsartan (Diovan -) 320 mg PO DAILY [facility] - Objective Vital Signs: Vital Signs Temperature 98.1 F 12/26/17 06:36 Pulse Rate 66 12/26/17 06:36 Respiratory Rate 20 12/26/17 06:36 Blood Pressure 143/72 12/26/17 06:36 O2 Sat by Pulse Oximetry (%) 98 12/25/17 19:00 Constitutional: Yes: No Distress, Calm Eyes: Yes: Conjunctiva Clear, EOM Intact HENT: Yes: Atraumatic, Normocephalic Neck: Yes: Supple, Trachea Midline Cardiovascular: Yes: Regular Rate and Rhythm Respiratory: Yes: CTA Bilaterally Gastrointestinal: Yes: Normal Bowel Sounds Musculoskeletal: Yes: WNL Extremities: Yes: WNL Peripheral Pulses WNL: Yes Labs: CBC, BMP 12/25/17 06:30 12/26/17 07:55 INR, PTT INR 1.09 (0.82-1.09) 12/24/17 07:00 Problem List - Problems (1) HTN (hypertension) Assessment/Plan: Continue home medications. stable CV status postop. will see as needed. Code(s): I10 - ESSENTIAL (PRIMARY) HYPERTENSION Qualifiers: Hypertension type: essential hypertension Qualified Code(s): I10 - Essential (primary) hypertension
[2017-12-26] MEDS ORDERED: NEBIVOLOL 5 MG TABLET (FP) PO SCH (10:00)
[2017-12-26] MEDS ORDERED: FEBUXOSTAT 40 MG TAB PO SCH (10:00)
[2017-12-26] MEDS ORDERED: TIOTROPIUM BROMIDE 18 MCG CAPSULES IH SCH (10:00)
[2017-12-26] MEDS ORDERED: VALSARTAN 160 MG TABLET (UD) PO SCH (10:00)
[2017-12-26] MEDS ORDERED: PANTOPRAZOLE SODIUM 40 MG VIAL IVPUSH SCH (10:00)
[2017-12-26] MEDS ORDERED: amLODIPine BESYLATE 10 MG TABLET (FP) PO SCH (10:00)
[2017-12-26] MEDS ORDERED: ROFLUMILAST 500 MCG TABLET PO SCH (10:00)
[2017-12-26] MEDS ORDERED: FUROSEMIDE 20 MG TABLET (FP) PO SCH (10:00)
[2017-12-26] MEDS: D5-1/2NS+20 MEQ KCL - 20 MEQ/1,000 ML INFUS.BAG IV SCH (10:24)
[2017-12-26] MEDS: BUDESONIDE/FORMETEROL FUMARATE 160/4.5 mcg INHALER IH SCH ×2 (10:46→10:47)
[2017-12-26] MEDS ORDERED: POTASSIUM CHLORIDE 20 MEQ in SODIUM CHLORIDE 0.45% 1,000 ML IVPB SCH (11:00)
--- NOTE | 2017-12-26 11:06 | PN ---
Progress Note, Physician Chief Complaint: Abdominal pain, nausea, vomiting History of Present Illness: Acute vs chronic cholecystitis seen by surgery -on iVF and IV abx cleared by cardiology -for OR today son at bedside NAD, denies any abdominal pain, N/V - Current Medication List Current Medications: Active Medications Acetaminophen (Tylenol -) 650 mg PO Q6H PRN PRN Reason: FEVER Albuterol Sulfate (Ventolin Hfa Inhaler -) 2 puff IH Q6H PRN PRN Reason: SHORT OF BREATH/WHEEZING Amlodipine Besylate (Norvasc -) 10 mg PO DAILY [facility] Last Admin: 12/26/17 10:42 Dose: 10 mg Atorvastatin Calcium (Lipitor -) 20 mg PO HS [facility] Last Admin: 12/25/17 22:35 Dose: 20 mg Budesonide/Formoterol Fumarate (Symbicort 160/4.5mcg -) 1 puff IH BID [facility] Last Admin: 12/26/17 10:47 Dose: 1 puff Febuxostat (Uloric -) 40 mg PO DAILY [facility] Last Admin: 12/26/17 10:44 Dose: 40 mg Furosemide (Lasix -) 20 mg PO DAILY [facility] Last Admin: 12/26/17 10:43 Dose: 20 mg Cefoxitin Sodium 1 gm/ Sodium (Chloride) 100 mls @ 200 mls/hr IVPB Q8H-IV [facility] Last Admin: 12/26/17 10:40 Dose: 200 mls/hr Potassium Chloride/Dextrose/Sod Cl (D5-1/2ns+20 Meq Kcl -) 20 meq in 1,000 mls @ 83 mls/hr IV ASDIR [facility] Last Admin: 12/26/17 10:24 Dose: 83 mls/hr Ibuprofen (Motrin -) 600 mg PO Q6H PRN PRN Reason: PAIN LEVEL 1-5 Insulin Aspart (Novolog Vial Sliding Scale -) 1 vial SQ HS [facility] PRN Reason: Protocol Last Admin: 12/25/17 22:34 Dose: Not Given Insulin Aspart (Novolog Vial Sliding Scale -) 1 vial SQ TIDAC [facility] PRN Reason: Protocol Last Admin: 12/26/17 06:15 Dose: 2 units Montelukast Sodium (Singulair -) 10 mg PO HS [facility] Last Admin: 12/25/17 22:35 Dose: 10 mg Morphine Sulfate (Morphine Sulfate) 2 mg IVPUSH Q6H PRN PRN Reason: PAIN LEVEL 7 - 10 Nebivolol (Bystolic -) 5 mg PO DAILY [facility] Last Admin: 12/26/17 10:43 Dose: 5 mg Ondansetron HCl (Zofran Injection) 4 mg IVPUSH Q6H PRN PRN Reason: NAUSEA Pantoprazole Sodium (Protonix Iv) 40 mg IVPUSH DAILY [facility] Last Admin: 12/26/17 10:43 Dose: 40 mg Roflumilast (Daliresp -) 500 mcg PO DAILY [facility] Last Admin: 12/26/17 10:43 Dose: 500 mcg Tiotropium [place] (Spiriva -) 1 puff IH DAILY [facility] Last Admin: 12/26/17 10:44 Dose: 1 puff Valsartan (Diovan -) 320 mg PO DAILY [facility] Last Admin: 12/26/17 10:44 Dose: 320 mg - Objective Vital Signs: Vital Signs Temperature 98.1 F 12/26/17 06:36 Pulse Rate 66 12/26/17 06:36 Respiratory Rate 20 12/26/17 06:36 Blood Pressure 143/72 12/26/17 06:36 O2 Sat by Pulse Oximetry (%) 98 12/25/17 19:00 Constitutional: Yes: Well Nourished, No Distress, Calm Cardiovascular: Yes: Regular Rate and Rhythm Respiratory: Yes: Regular Gastrointestinal: Yes: Normal Bowel Sounds, Soft Labs: CBC, BMP 12/25/17 06:30 12/26/17 07:55 INR, PTT INR 1.09 (0.82-1.09) 12/24/17 07:00 Problem List - Problems (1) Diabetes Assessment/Plan: -uncontrolled -endocrinology consult-f/u outpatient -Novolog sliding scale Code(s): E11.9 - TYPE 2 DIABETES MELLITUS WITHOUT COMPLICATIONS Qualifiers: Diabetes mellitus type: type 2 Diabetes mellitus termite control service representative insulin use: without termite control service representative use Diabetes mellitus complication status: with hyperglycemia Qualified Code(s): E11.65 - Type 2 diabetes mellitus with hyperglycemia (2) Hypokalemia Assessment/Plan: -resolved Code(s): E87.6 - HYPOKALEMIA (3) Abdominal pain Assessment/Plan: resolved Code(s): R10.9 - UNSPECIFIED ABDOMINAL PAIN (4) Biliary colic Assessment/Plan: -S/P lap choley -tolerating PO intake Code(s): K80.50 - CALCULUS OF BILE DUCT W/O CHOLANGITIS OR CHOLECYST W/O OBST Assessment/Plan see problem list D/C home with VNS and Physical therapy services
--- NOTE | 2017-12-26 13:14 | DS ---
Physical Examination Vital Signs: Vital Signs Temperature 97.3 F L 12/26/17 11:00 Pulse Rate 70 12/26/17 11:00 Respiratory Rate 18 12/26/17 11:00 Blood Pressure 129/77 12/26/17 11:00 O2 Sat by Pulse Oximetry (%) 98 12/25/17 19:00 Constitutional: Yes: Well Nourished, No Distress, Calm Cardiovascular: Yes: Regular Rate and Rhythm Respiratory: Yes: Regular Gastrointestinal: Yes: Normal Bowel Sounds, Soft Musculoskeletal: Yes: WNL Extremities: Yes: WNL Edema: No Peripheral Pulses WNL: Yes Neurological: Yes: Alert, Oriented Psychiatric: Yes: Alert, Oriented Labs: CBC, BMP 12/25/17 06:30 12/26/17 07:55 Discharge Summary Reason For Visit: ABDOMINAL ENLARGED GALLBLADDER Current Active Problems Abdominal pain (Acute) Biliary colic (Acute) Dyskinesia of gallbladder (Acute) Enlarged gallbladder (Acute) Hypokalemia (Acute) Melasma (Acute) N&V (nausea and vomiting) (Acute) Hospital Course: his is an 87yF with a past medical history significant for dementia, DM, HTN, COPD who presented to the ED with abdominal pain since 12/20 in evening. Pain got worse throughout day on 12/21 associated with nausea and vomiting. Upon exam , pt reports improvement in pain and resolution of nausea/vomiting. Condition: Stable - Instructions Diet, Activity, Other Instructions: Postoperative instructions: You had a laparoscopic cholecystectomy on 12/25/[address] Pasquale Thapa of [facility]. Activity: Resume your usual activities gradually, but no heavy exertion or lifting more than 10-15 pounds for 1 month. Remove dressings 48 hours after surgery; sticky tapes underneath will fall off by themselves. You may shower daily starting then, just pat the incision areas dry. Eat lightly at first, but advance to your usual diet as tolerated. Pain: For pain, you may use and alternate Tylenol (acetaminophen) and/or ibuprofen every 6 hours each as needed; this means that you can take one OR the other at 3-hour intervals. If you are prescribed a Tylenol/narcotic combination for severe pain, use it instead of plain Tylenol as needed and switch back when your pain starts decreasing. Do not take more than 4000mg of acetaminophen in a day. Take medications as prescribed or indicated on the labeling. Follow-up: Call Dr. Thapa' office at [phone] to make your postop appointment (Monday ~2 weeks after surgery). Clinic is held in the [facility] on the first floor of [facility]. Call the office if you have: * increasing pain not responsive to pain medication * fever of 101F or higher * vomiting * unusual or increasing bleeding or drainage from wounds * increasing redness or swelling at wound sites * inability to urinate Also, see your primary medical doctor within 1-2 weeks. Referrals: Akila Madera MD [Primary Care Provider] - Disposition: VNS/HOME HEALTH CARE - Home Medications Comprehensive Discharge Medication List: Ambulatory Orders Albuterol Sulfate Inhaler - [Ventolin HFA Inhaler -] 1 - 2 inh PO QID 09/12/17 Amlodipine Bes/Olmesartan Med [Amlodipine-Olmesartan 10-40 mg] 1 each PO DAILY 09/12/17 Atorvastatin Ca [Lipitor] 20 mg PO HS 09/12/17 Bimatoprost [Lumigan] 1 drop IO DAILY 09/12/17 Brimonidine Tartrate/Timolol [Combigan 0.2%-0.5% Eye Drops] 5 ml OP HS 09/12/17 Budesonide/Formeterol Fumarate [SYMBICORT 160/4.5mcg -] 1 inh PO DAILY 09/12/17 Febuxostat [Uloric] 40 mg PO DAILY 09/12/17 Furosemide [Lasix -] 20 mg PO DAILY 09/12/17 Icosapent Ethyl [Vascepa] 1 gm PO DAILY 09/12/17 Montelukast Na [Singulair -] 10 mg PO HS 09/12/17 Omeprazole 20 mg PO DAILY 09/12/17 Roflumilast [Daliresp] 500 mcg PO DAILY 09/12/17 Saxagliptin HCl [Onglyza] 5 mg PO DAILY 09/12/17 Umeclidinium [place] [Incruse Ellipta] 62.5 mcg IH PRN PRN 09/12/17 Insulin Sliding Scale [Novolog Vial Sliding Scale -] 1 vial SQ ACHS units 09/15 Nebivolol [Bystolic -] 5 mg PO DAILY #30 tab 09/15/17 Insulin Detemir [Levemir Flextouch] 5 unit SQ HS 12/21/17 Acetaminophen [Tylenol .Regular Strength -] 650 mg PO Q6H PRN tablet 12/26/17
[2017-12-27 12:20] VITALS: BP 129/77; PULSE 70; TEMP 97.3
--- NOTE | 2017-12-28 16:46 | PATH ---
Surgical Pathology Report Patient Name: ANITA HOPKINS Med. Rec. #: [id number] /Age/Gender: 1930 (Age: 87) / F Account: [id number] Location: [facility] MED/SURG Taken: 12/26/2017 Received: 12/26/2017 Reported: 12/28/2017 Physicians: Saira Espinal M.D. Specimen(s) Received GALLBLADDER AND STONES Clinical History Acute cholecystitis Final Diagnosis GALLBLADDER, CHOLECYSTECTOMY: MARKED ACUTE, CHRONIC, AND NECROTIZING CHOLECYSTITIS WITH REACTIVE AND FOCAL METAPLASTIC EPITHELIAL CHANGES. CHOLELITHIASIS IS PRESENT. NO CARCINOMA IDENTIFIED. Electronically Signed David Guerrero M.D. Gross Description Received in formalin, labeled "gallbladder," is a 8.5 x 4.0 x 3.7 cm. gallbladder with a 0.2 cm. in length portion of cystic duct attached. The outer surface is green and varies from smooth to shaggy. The lumen contains green, tenacious bile as well as multiple black, irregular to fragmented choleliths ranging from 0.1-0.4 cm in greatest dimension. The mucosa is green with abundant possible polypoid lesions. The wall of the gallbladder ranges from 0.1-0.4 cm. in thickness. Brush And Broom Clipper sections are submitted in 3 cassettes. /12/26/201712/26/2017
== END 2017-12-26 15:19 | disposition home health service (06) | DRG 419 ==
LOC: JER 18:24 → JERBED 12-22 01:31 → INTOOBSV 12-22 01:31 → UNDOADMOB 12-22 01:31 → UNDOADMIN 12-22 01:39 → JERBED 12-22 01:39 → UNDOADMOB 12-22 03:14 → JERBED 12-22 03:14 → J8W 12-22 15:24 → JERBED 12-22 15:24 → J8W 12-24 08:29 → OBSVTOIN 12-24 08:29 → JERBED 12-24 08:29
PROVIDERS: ADMIT Internal Medicine; ATTEND Family Medicine
PROC: 0FT44ZZ Resection of Gallbladder, Percutaneous Endoscopic Approach (ICD-10-PCS; principal; 2017-12-25 14:00)
DX: K80.12 Calculus of gallbladder with acute and chronic cholecystitis without obstruction (principal); I10 Essential (primary) hypertension; F03.90 Unspecified dementia, unspecified severity, without behavioral disturbance, psychotic disturbance, mood disturbance, and anxiety; E78.5 Hyperlipidemia, unspecified; D72.829 Elevated white blood cell count, unspecified; F09 Unspecified mental disorder due to known physiological condition; J44.9 Chronic obstructive pulmonary disease, unspecified; J45.909 Unspecified asthma, uncomplicated; E87.6 Hypokalemia; E11.65 Type 2 diabetes mellitus with hyperglycemia; Z79.4 Long term (current) use of insulin
CPT/HCPCS: 36415; 71045-TC-FY; 74176-TC; 74181-TC; 76705-TC; 80048; 80053; 81003; 81015; 82248; 82550; 82728; 82962; 83036; 83540; 83550; 83690; 83735; 84100; 84484; 85025; 85610; 86850; 86900; 86901; 87040; 87086; 88304-TC; 93005; 93010; 93306-TC; 94760; 97116-GP; 97161-GP; 99285-25; J7030

== ENCOUNTER 2018-10-13 08:54 | Inpatient (IN) | payer OTHER ==
[2018-10-13 09:15] VITALS: BMI 31.7
--- NOTE | 2018-10-13 09:22 | PDOC ---
Attending Attestation - Resident Resident Name: Fernando Amin - ED Attending Attestation I have performed the following: I have examined & evaluated the patient, The case was reviewed & discussed with the resident, I agree w/resident's findings & plan, Exceptions are as noted - HPI HPI: 10/13/18 10:17 88yo female with hx of dementia and parkinsons with increasing weakness, mechanical fall this am landing on her buttock. Witness by the son. No loc. No head injury. Slipped out of bed on way to wheelchair. No pelvis pain. FROM of LE. currently denies cp or sob. Son states strong smell to the odor. Son states pt lives alone on the 2nd floor of a walkup and needs to be placed in a NH. No beltran. No neck pain. No abd pain. No n/v/d. No ecchymosis. some knee pain with ROM , however, no swelling. - Physicial Exam PE: 10/13/18 10:24 Gen: awake, alert to person, speaks turkish, follows commands heent: dry mm, eomi neck: supple, no jvd heart: +s1s2 reg lungs: cta b/l abd: soft, nt/nd +bs ext: no c/c/e, FROM Of LE, no pelvis ttp, had knee pain with ROM, but denies on palpation, radial and pedal pulses intact - Medical Decision Making 10/13/18 09:22 I, Dr. Eli Mcclain, DO, attest that this document has been prepared under my direction and personally reviewed by me in its entirety. I further attest, that it accurately reflects all work, treatment, procedures and medical decision -making performed by me. 10/13/18 10:25 a/p: 88yo female with a fall this am and generalized weakness -suspect UTI with foul smell of urine and cloudy urine on straight cath -will send labs, uti, ucx, cxr, pelvis xray, LE xrays -PMD Dr. Madera -will need admission and consult to social work for decreased ability to ambulate, falls, generalized weakness, and placement -will give ivf hydration -most likely need abx -nontoxic in appearance, but appears dehydrated 10/13/18 11:05 UTI on labs call placed to DR. Madera for admission zosyn ordered hx of VRE, E coli, K pneuo on prior cultures 10/13/18 11:28 pt with GENET and UTI will continue IVF hydration pending tierra call back 10/13/18 11:44 resident discussed case with [facility] Dash who accepts pt to service *DC/Admit/Observation/Transfer Diagnosis at time of Disposition: UTI (urinary tract infection), Fall, Weakness - Discharge Dispostion Condition at time of disposition: Fair Decision to Admit order: Yes - Referrals Referrals: Akila Madera MD [Primary Care Provider] - - Patient Instructions - Post Discharge Activity Heart Score/ECG Review - ECG Intrepretation Comment:: 10/13/18 09:27 sinus at 69, q waves anteriorly which are age indeterminate, nl axis, no acute st/t wave findings
--- NOTE | 2018-10-13 09:45 | PDOC ---
History of Present Illness - General Chief Complaint: Injury Stated Complaint: FALL Time Seen by Provider: 10/13/18 09:22 - History of Present Illness Initial Comments: 88 year old female with PMH of IDDM, HTN, COPD, HLD, seizure history, Gout, GERD, falls (2/2 ambulatory difficulty) and glaucoma presenting with son at bedside after a fall while transferring from her bed to her wheelchair today in the setting of weakness, mental status change, and increased urinary frequency over the past three days. The patient is complaining of frequent urination and dysuria. The son witnessed the fall and states that she has been weaker and slightly more forgetful over the past few days with overall weakness that culminated today in a fall while she was transferring from her bed to her wheel chair. States that she fell straight downward onto her buttox. Did not hit her head, lose consciousness or experience any other issues. 10/13/18 10:23 Past History - Past Medical History Allergies/Adverse Reactions: Allergies Allergy/AdvReac Type Severity Reaction Status Date / Time No Known Allergies Allergy Verified 12/21/17 18:40 Home Medications: Ambulatory Orders Albuterol Sulfate Inhaler - [Ventolin HFA Inhaler -] 1 - 2 inh PO QID 09/12/17 Atorvastatin Ca [Lipitor] 20 mg PO HS 09/12/17 Bimatoprost [Lumigan] 1 drop IO DAILY 09/12/17 Brimonidine Tartrate/Timolol [Combigan 0.2%-0.5% Eye Drops] 5 ml OP HS 09/12/17 Budesonide/Formeterol Fumarate [SYMBICORT 160/4.5mcg -] 1 inh PO DAILY 09/12/17 Febuxostat [Uloric] 40 mg PO DAILY 09/12/17 Icosapent Ethyl [Vascepa] 1 gm PO DAILY 09/12/17 Montelukast Na [Singulair -] 10 mg PO HS 09/12/17 Omeprazole 20 mg PO DAILY 09/12/17 Acetaminophen [Tylenol .Regular Strength -] 650 mg PO Q6H PRN tablet 12/26/17 Albuterol 2.5/Ipratropium 0.5 [Duoneb -] 1 amp NEB RQID amp 05/06/18 Carbidopa/Levodopa 25/100 [Sinemet 25/100 -] 1 each PO TID tablet 05/06/18 Insulin Sliding Scale [Novolog Vial Sliding Scale -] 1 vial SQ ACHS units 05/06 Sitagliptin Phosphate [Januvia -] 50 mg PO DAILY@0700 tablet 05/06/18 levETIRAcetam [Keppra -] 500 mg PO BID tablet 05/06/18 Brimonidine Tartrate [Alphagan 0.2% -] 1 drop OU HS drops 05/09/18 Heparin - 5,000 unit SQ BID vial 05/09/18 Latanoprost 0.005% Eye Drops [Xalatan 0.005% Eye Drops -] 1 drop OU HS drops Losartan Potassium [Cozaar -] 50 mg PO DAILY tablet 05/09/18 Asthma: Yes COPD: Yes Dementia: Yes Diabetes: Yes HTN: Yes Hypercholesterolemia: Yes Psychiatric Problems: Yes (bipolar,depression) Other medical history: Parkingson's, Alzheimer's - Immunization History Immunization Up to Date: No - Suicide/Smoking/Psychosocial Hx Smoking History: Unknown if ever smoked Have you smoked in the past 12 months: No Hx Alcohol Use: No Drug/Substance Use Hx: No Substance Use Type: None Hx Substance Use Treatment: No Review of Systems - Review of Systems Constitutional: No: Chills, Diaphoresis, Fever, Loss of Appetite HEENTM: No: Blurred Vision, Tearing, Double Vision Respiratory: No: Cough, Orthopnea, Shortness of Breath, Wheezing Cardiac (ROS): No: Chest Pain, Edema, Irregular Heart Rate ABD/GI: No: Nausea, Vomiting : No: Dysuria, Discharge, Frequency Musculoskeletal: No: Back Pain, Gout, Joint Pain Integumentary: No: Lesions, Lumps Neurological: Yes: Seizure, Weakness, Unsteady Gait. No: Numbness, Paresthesia Psychiatric: No: Anxiety, Depression Hematologic/Lymphatic: No: Anemia, Blood Clots, Easy Bleeding *Physical Exam - Vital Signs Last Vital Signs Temp Pulse Resp BP Pulse Ox 97.8 F 68 18 145/89 96 10/13/18 09:00 10/13/18 09:00 10/13/18 09:00 10/13/18 09:00 10/13/18 09:00 - Physical Exam General Appearance: Yes: Appropriately Dressed, Thin. No: Apparent Distress HEENT: positive: EOMI, LAUREN, Normal ENT Inspection, Normal Voice Neck: positive: Trachea midline, Normal Thyroid, Supple. negative: Tender, Rigid Respiratory/Chest: positive: Lungs Clear, Normal Breath Sounds. negative: Chest Tender, Respiratory Distress Cardiovascular: positive: Regular Rhythm, Regular Rate Gastrointestinal/Abdominal: positive: Normal Bowel Sounds, Flat, Soft. negative : Tender Musculoskeletal: positive: Normal Inspection. negative: Decreased Range of Motion Extremity: negative: Normal Inspection (generalized weakness), Normal Range of Motion (Generalized weakness) Integumentary: positive: Normal Color, Dry, Warm Neurologic: positive: Alert, Normal Response. negative: Fully Oriented (AOx1 to self), Motor Strength 5/5 Moderate Sedation - Procedure Monitoring Vital Signs: Procedure Monitoring Vital Signs Temperature 97.8 F 10/13/18 09:00 Pulse Rate 68 10/13/18 09:00 Respiratory Rate 18 10/13/18 09:00 Blood Pressure 145/89 10/13/18 09:00 O2 Sat by Pulse Oximetry (%) 96 10/13/18 09:00 ED Treatment Course - LABORATORY CBC & Chemistry Diagram: 10/13/18 10:20 10/13/18 10:20 Medical Decision Making - Medical Decision Making 88 year old female with history of seizures and falls presenting with fall ( unconcerning for seizure like activity) in the setting of urinary symptoms and positive UTI on UA with leuk esterase and 500 WBCs. Patient also has an GENET. Patient has had multi organism UTI in the past sensitive to Zosyn so given one dose of zosyn. Her VS remained stable and she was well appearing duringadmisson but will admit for QSOFA postive UTI/ AMS with UTI and GENET. Spoke to KEN[facility] for [facility]. 10/13/18 11:52 *DC/Admit/Observation/Transfer Diagnosis at time of Disposition: Weakness UTI (urinary tract infection) Qualifiers: Urinary tract infection type: site unspecified Hematuria presence: without hematuria Qualified Code(s): N39.0 - Urinary tract infection, site not specified Fall Qualifiers: Encounter type: initial encounter Qualified Code(s): W19.XXXA - Unspecified fall, initial encounter - Discharge Dispostion Condition at time of disposition: Fair Decision to Admit order: Yes - Referrals Referrals: Akila Madera MD [Primary Care Provider] - - Patient Instructions - Post Discharge Activity
[2018-10-13 10:20] LABS: URINE APPEARANCE CLOUDY; URINE BILIRUBIN NEGATIVE (<2.0 mg/dL); URINE COLOR YELLOW; URINE GLUCOSE (UA) NEGATIVE (NEGATIVE); URINE KETONE NEGATIVE (NEGATIVE); URINE LEUK ESTERASE 3+ (NEGATIVE); URINE NITRITE NEGATIVE (NEGATIVE); URINE PROTEIN 2+ (NEGATIVE); URINE UROBILINOGEN NEGATIVE mg/dL (0.2-1.0)
[2018-10-13 10:24] LABS: URINE HYALINE CAST 2 /lpf; URINE MUCUS RARE
[2018-10-13] MEDS ORDERED: SODIUM CHLORIDE 0.9% 500 ML INFUS.BAG IV ONE ×2 (10:24→11:28)
[2018-10-13] MEDS ORDERED: PIPERACILLIN/TAZOB 3.375 GM 3.375 GM in DEXTROSE 5%-WATER - 50 ML IVPB ONE (10:29)
[2018-10-13 10:38] LABS: BASO % 0.8 % (0-2.0); EOS % 1.3 % (0-4.5); HEMATOCRIT 30.8 % (32.4-45.2); HEMOGLOBIN 10.3 GM/dL (10.7-15.3); LYMPH % 20.3 % (8-40); MCH 30.5 pg (25.7-33.7); MCHC 33.4 g/dl (32.0-36.0); MEAN CELL VOLUME 91.4 fl (80-96); MEAN PLT VOLUME 10.3 fl (7.5-11.1); NEUT % 71.6 % (42.8-82.8); PLATELET COUNT 222 K/MM3 (134-434); RBC 3.37 M/mm3 (3.60-5.2); RDW 15.2 % (11.6-15.6); WHITE BLOOD COUNT 7.3 K/mm3 (4.0-10.0)
[2018-10-13] MEDS ORDERED: PIPERACILLIN/TAZOB 3.375 GM 3.375 GM/50 ML BAG IVPB ONE (10:55)
[2018-10-13 11:14] LABS: ALBUMIN 3.5 g/dl (3.4-5.0); ALK PHOS 120 U/L (45-117); ANION GAP 9 MMOL/L (8-16); BILIRUBIN,TOTAL 0.2 mg/dL (0.2-1); BLOOD UREA NITROGEN 60 mg/dL (7-18); CHLORIDE 110 mmol/L (98-107); CO2 26 mmol/L (21-32); GLUCOSE,RANDOM 109 mg/dL (74-106); POTASSIUM 4.5 mmol/L (3.5-5.1); SGOT/AST 24 U/L (15-37); SGPT/ALT 14 U/L (13-61); SODIUM 145 mmol/L (136-145); TOT PROT 7.6 g/dl (6.4-8.2)
[2018-10-13] MEDS ORDERED: ACETAMINOPHEN 325 MG TABLET (FP) PO PRN (18:32)
--- NOTE | 2018-10-13 18:44 | HP ---
Admitting History and Physical - Primary Care Physician PCP: Akila Madera - Admission Chief Complaint: Fall. UTI History of Present Illness: 88 year old female with PMH of IDDM, HTN, COPD, HLD, seizure history, Gout, GERD, falls (2/2 ambulatory difficulty) and glaucoma presenting with son at bedside after a fall while transferring from her bed to her wheelchair today in the setting of weakness, mental status change, and increased urinary frequency over the past three days. The patient is complaining of frequent urination and dysuria. The son witnessed the fall and states that she has been weaker and slightly more forgetful over the past few days with overall weakness that culminated today in a fall while she was transferring from her bed to her wheel chair. States that she fell straight downward onto her buttox. Did not hit her head, lose consciousness or experience any other issues. History Source: Medical Record Limitations to Obtaining History: No Limitations - Past Medical History [employer]: Yes: Dementia, Parkinson's Cardiovascular: Yes: HTN, Hyperlipdemia Pulmonary: Yes: COPD Gastrointestinal: Yes: GERD ...: No Heme/Onc: Yes: Anemia Rheumatology: Yes: Gout Endocrine: Yes: Diabetes Mellitus - Past Surgical History Past Surgical History: Yes: Cholecystectomy (12/10: Laparoscopic) - Smoking History Smoking history: Unknown if ever smoked Have you smoked in the past 12 months: No - Alcohol/Substance Use Hx Alcohol Use: No - Social History History of Recent Travel: No Home Medications - Allergies Allergies/Adverse Reactions: Allergies Allergy/AdvReac Type Severity Reaction Status Date / Time No Known Allergies Allergy Verified 12/21/17 18:40 - Home Medications Home Medications: Ambulatory Orders Albuterol Sulfate Inhaler - [Ventolin HFA Inhaler -] 1 - 2 inh PO QID 09/12/17 Atorvastatin Ca [Lipitor] 20 mg PO HS 09/12/17 Bimatoprost [Lumigan] 1 drop IO DAILY 09/12/17 Brimonidine Tartrate/Timolol [Combigan 0.2%-0.5% Eye Drops] 5 ml OP HS 09/12/17 Budesonide/Formeterol Fumarate [SYMBICORT 160/4.5mcg -] 1 inh PO DAILY 09/12/17 Febuxostat [Uloric] 40 mg PO DAILY 09/12/17 Icosapent Ethyl [Vascepa] 1 gm PO DAILY 09/12/17 Montelukast Na [Singulair -] 10 mg PO HS 09/12/17 Omeprazole 20 mg PO DAILY 09/12/17 Acetaminophen [Tylenol .Regular Strength -] 650 mg PO Q6H PRN tablet 12/26/17 Albuterol 2.5/Ipratropium 0.5 [Duoneb -] 1 amp NEB RQID amp 05/06/18 Carbidopa/Levodopa 25/100 [Sinemet 25/100 -] 1 each PO TID tablet 05/06/18 Insulin Sliding Scale [Novolog Vial Sliding Scale -] 1 vial SQ ACHS units 05/06 Sitagliptin Phosphate [Januvia -] 50 mg PO DAILY@0700 tablet 05/06/18 levETIRAcetam [Keppra -] 500 mg PO BID tablet 05/06/18 Brimonidine Tartrate [Alphagan 0.2% -] 1 drop OU HS drops 05/09/18 Heparin - 5,000 unit SQ BID vial 05/09/18 Latanoprost 0.005% Eye Drops [Xalatan 0.005% Eye Drops -] 1 drop OU HS drops Losartan Potassium [Cozaar -] 50 mg PO DAILY tablet 05/09/18 Family Disease History - Family Disease History Family Disease History: Diabetes: Daughter Review of Systems - Review of Systems Constitutional: reports: Weakness Eyes: reports: No Symptoms HENT: reports: No Symptoms Neck: reports: No Symptoms Cardiovascular: reports: No Symptoms Respiratory: reports: No Symptoms Gastrointestinal: reports: No Symptoms Genitourinary: reports: Dysuria, Frequency Breasts: reports: No Symptoms Reported Musculoskeletal: reports: Back Pain, Other (fall) Integumentary: reports: No Symptoms Neurological: reports: No Symptoms Endocrine: reports: No Symptoms Hematology/Lymphatic: reports: No Symptoms Psychiatric: reports: No Symptoms Physical Examination Vital Signs: Vital Signs Temperature 98.4 F 10/13/18 18:08 Pulse Rate 70 10/13/18 18:08 Respiratory Rate 18 10/13/18 18:08 Blood Pressure 158/69 10/13/18 18:08 O2 Sat by Pulse Oximetry (%) 96 10/13/18 12:17 Constitutional: Yes: Well Nourished, No Distress, Calm Cardiovascular: Yes: Regular Rate and Rhythm Respiratory: Yes: Regular Gastrointestinal: Yes: Normal Bowel Sounds, Soft Musculoskeletal: Yes: Muscle Weakness Extremities: Yes: WNL Edema: No Peripheral Pulses WNL: Yes Neurological: Yes: Alert, Oriented Psychiatric: Yes: Alert, Oriented Labs: CBC, BMP 10/13/18 10:20 10/13/18 10:20 Imaging - Results Chest X-ray: Report Reviewed X-ray: Report Reviewed Problem List - Problems (1) Fall Assessment/Plan: -Physical therapy -Safety precautions Code(s): W19.XXXA - UNSPECIFIED FALL, INITIAL ENCOUNTER Qualifiers: Encounter type: initial encounter Qualified Code(s): W19.XXXA - Unspecified fall, initial encounter (2) UTI (urinary tract infection) Assessment/Plan: -UC pending -ID consult -IV abx -afebrile -no leuks Code(s): N39.0 - URINARY TRACT INFECTION, SITE NOT SPECIFIED Qualifiers: Urinary tract infection type: site unspecified Hematuria presence: without hematuria Qualified Code(s): N39.0 - Urinary tract infection, site not specified (3) Weakness Assessment/Plan: -Physical therapy -Safety precautions Code(s): R53.1 - WEAKNESS (4) GENET (acute kidney injury) Assessment/Plan: -2/2 to UTI -Nephrology consult -Renal U/S Code(s): N17.9 - ACUTE KIDNEY FAILURE, UNSPECIFIED (5) Anemia Assessment/Plan: -chronically anemic -past workup negative -would repeat iron studies+ thyroid+ b12+ folate+stool ob -monitor trend -normal transfusion parameters Code(s): D64.9 - ANEMIA, UNSPECIFIED Qualifiers: (6) Elevated troponin Assessment/Plan: -2/2 to GENET? -Stat trop now Code(s): R74.8 - ABNORMAL LEVELS OF OTHER SERUM ENZYMES Assessment/Plan see problem list
[2018-10-13] MEDS: HEPARIN NA (PORCINE) 5,000 UNITS/ML 1ML VIAL SQ SCH (21:37)
[2018-10-13] MEDS: CARBIDOPA/LEVODOPA 25/100 TABLET (FP) PO SCH (21:37)
[2018-10-13] MEDS: MONTELUKAST NA 10 MG TABLET PO SCH (21:37)
[2018-10-13] MEDS: BRIMONIDINE TARTRATE 0.2% OPHTHALMIC 5 ML BOTTLE OU SCH (21:37)
[2018-10-13] MEDS: ATORVASTATIN CA 20 MG TABLET (FP) PO SCH (21:37)
[2018-10-13] MEDS: levETIRAcetam 500 MG TABLET (FP) PO SCH (21:37)
[2018-10-13] MEDS: OMEGA-3 ACID ETHYL ESTERS (FATTY-ACIDS) 1 GM CAPSULE (FP) PO SCH (21:38)
[2018-10-13] MEDS: LATANOPROST 0.005% OPHTH SOLN 2.5ML BOTTLE OU SCH (21:39)
[2018-10-13] MEDS: TIMOLOL 0.5% OPHTHALMIC SOL 5 ML BOTTLE OU SCH (21:39)
[2018-10-13] MEDS: INSULIN SLIDING SCALE (NOVOLOG) 1 VIAL SQ SCH (21:40)
[2018-10-13] MEDS ORDERED: PATIENT'S OWN MEDICATION (NON-FORMULARY) (Brimonidine Tartrate/Timolol [Combigan 0.2%-0.5% OP SCH (22:00)
[2018-10-14] MEDS ORDERED: LORazepam 2 MG/ML SDV VIAL IVPUSH ONE (03:56)
[2018-10-14] MEDS: INSULIN SLIDING SCALE (NOVOLOG) 1 VIAL SQ SCH ×4 (06:05→22:04)
[2018-10-14] MEDS: CARBIDOPA/LEVODOPA 25/100 TABLET (FP) PO SCH ×3 (06:08→21:58)
[2018-10-14] MEDS: sitaGLIPtin PHOSPHATE 50 MG TABLET PO SCH (06:08)
[2018-10-14] MEDS: ALBUTEROL SO4 2.5/IPRATROPIUM 0.5 INH SOL 3 ML VIAL.NEB. NEB SCH ×5 (08:27→20:35)
--- NOTE | 2018-10-14 09:26 | PN ---
Progress Note, Physician Chief Complaint: UTI FALL History of Present Illness: NAD LAbs pending UC: Microbiology 10/13/18 10:05 Urine Culture - Preliminary Urine - Urine Clean Catch Lactose Fermenting Neg Bacilli Pending Organism ID consult+ nephrology consult pending - Current Medication List Current Medications: Active Medications Acetaminophen (Tylenol -) 650 mg PO Q6H PRN PRN Reason: FEVER Albuterol/Ipratropium (Duoneb -) 1 amp NEB RQID [facility] Last Admin: 10/14/18 08:27 Dose: 1 amp Atorvastatin Calcium (Lipitor -) 20 mg PO HS [facility] Last Admin: 10/13/18 21:37 Dose: 20 mg Brimonidine Tartrate (Alphagan 0.2% -) 1 drop OU HS [facility] Last Admin: 10/13/18 21:37 Dose: 1 drop Budesonide/Formoterol Fumarate (Symbicort 160/4.5mcg -) 1 puff IH DAILY [facility] Carbidopa/Levodopa (Sinemet 25/100 -) 1 each PO TID [facility] Last Admin: 10/14/18 06:08 Dose: 1 each Febuxostat (Uloric -) 40 mg PO DAILY [facility] Heparin Sodium (Porcine) (Heparin -) 5,000 unit SQ BID [facility] Last Admin: 10/13/18 21:37 Dose: 5,000 unit Ceftriaxone Sodium 1 gm/ (Dextrose) 50 mls @ 100 mls/hr IVPB DAILY [facility]; Protocol Insulin Aspart (Novolog Vial Sliding Scale -) 1 vial SQ ACHS [facility]; Protocol Last Admin: 10/14/18 06:05 Dose: Not Given Latanoprost (Xalatan 0.005% Eye Drops -) 1 drop OU [facility] Last Admin: 10/13/18 21:39 Dose: 1 drop Levetiracetam (Keppra -) 500 mg PO BID [facility] Last Admin: 10/13/18 21:37 Dose: 500 mg Losartan Potassium (Cozaar -) 50 mg PO DAILY [facility] Montelukast Sodium (Singulair -) 10 mg PO HS [facility] Last Admin: 10/13/18 21:37 Dose: 10 mg [id number] Ethyl Esters (Lovaza -) 2 gm PO BID [facility] Last Admin: 10/13/18 21:38 Dose: 2 gm Pantoprazole Sodium (Protonix -) 40 mg PO DAILY [facility] Sitagliptin Phosphate (Januvia -) 50 mg PO DAILY@0700 [facility] Last Admin: 10/14/18 06:08 Dose: 50 mg Timolol Maleate (Timoptic 0.5%) 1 drop OU HS [facility] Last Admin: 10/13/18 21:39 Dose: 1 drop - Objective Vital Signs: Vital Signs Temperature 98.4 F 10/14/18 06:00 Pulse Rate 72 10/14/18 06:00 Respiratory Rate 18 10/14/18 06:00 Blood Pressure 158/74 10/14/18 06:00 O2 Sat by Pulse Oximetry (%) 96 10/13/18 20:55 Constitutional: Yes: Well Nourished, No Distress, Calm, Obese Cardiovascular: Yes: Regular Rate and Rhythm Respiratory: Yes: Regular Gastrointestinal: Yes: Normal Bowel Sounds, Soft Genitourinary: Yes: WNL Musculoskeletal: Yes: Muscle Weakness Edema: No Peripheral Pulses WNL: Yes Neurological: Yes: Alert, Pre-Existing Deficit Psychiatric: Yes: Alert Labs: CBC, BMP 10/13/18 10:20 10/13/18 10:20 Problem List - Problems (1) Fall Assessment/Plan: -Physical therapy -Safety precautions Code(s): W19.XXXA - UNSPECIFIED FALL, INITIAL ENCOUNTER Qualifiers: Encounter type: initial encounter Qualified Code(s): W19.XXXA - Unspecified fall, initial encounter (2) UTI (urinary tract infection) Assessment/Plan: -UC pending -ID consult -IV abx -afebrile -no leuks Code(s): N39.0 - URINARY TRACT INFECTION, SITE NOT SPECIFIED Qualifiers: Urinary tract infection type: site unspecified Hematuria presence: without hematuria Qualified Code(s): N39.0 - Urinary tract infection, site not specified (3) Weakness Assessment/Plan: -Physical therapy -Safety precautions Code(s): R53.1 - WEAKNESS (4) GENET (acute kidney injury) Assessment/Plan: -2/2 to UTI -Nephrology consult -Renal U/S Code(s): N17.9 - ACUTE KIDNEY FAILURE, UNSPECIFIED (5) Anemia Assessment/Plan: -chronically anemic -past workup negative -would repeat iron studies+ thyroid+ b12+ folate+stool ob -monitor trend -normal transfusion parameters Code(s): D64.9 - ANEMIA, UNSPECIFIED Qualifiers: (6) Elevated troponin Assessment/Plan: -2/2 to GENET? -Stat repeat wasn't done yesterday -to be repeated now Code(s): R74.8 - ABNORMAL LEVELS OF OTHER SERUM ENZYMES Assessment/Plan see problem list physical therapy
[2018-10-14] MEDS ORDERED: CEFTRIAXONE 1 GM in DEXTROSE 5%-WATER - 50 ML IVPB SCH (10:00)
[2018-10-14] MEDS ORDERED: PATIENT'S OWN MEDICATION (NON-FORMULARY) (Bimatoprost [Lumigan] 1 DROP) IO SCH (10:00)
[2018-10-14 10:27] LABS: BASO % 0.9 % (0-2.0); EOS % 2.4 % (0-4.5); HEMATOCRIT 30.1 % (32.4-45.2); LYMPH % 28.7 % (8-40); MCH 30.5 pg (25.7-33.7); MCHC 33.3 g/dl (32.0-36.0); MEAN CELL VOLUME 91.6 fl (80-96); MEAN PLT VOLUME 10.3 fl (7.5-11.1); MONO % 9.3 % (3.8-10.2); NEUT % 58.7 % (42.8-82.8); PLATELET COUNT 194 K/MM3 (134-434); RBC 3.28 M/mm3 (3.60-5.2); RDW 14.8 % (11.6-15.6)
[2018-10-14] MEDS ORDERED: DEXTROSE 5%-WATER - 50 ML IVPB ONE (10:38)
[2018-10-14] MEDS ORDERED: cefTRIAXone SODIUM 1 GM VIAL ONE (10:38)
[2018-10-14] MEDS: CEFTRIAXONE 1 GM in DEXTROSE 5%-WATER - 50 ML IVPB SCH (10:51)
[2018-10-14] MEDS: levETIRAcetam 500 MG TABLET (FP) PO SCH ×2 (10:52→21:58)
[2018-10-14] MEDS: LOSARTAN POTASSIUM 50 MG TABLET (FP) PO SCH (10:52)
[2018-10-14] MEDS: PANTOPRAZOLE 40 MG TABLET (FP) PO SCH (10:52)
[2018-10-14] MEDS: HEPARIN NA (PORCINE) 5,000 UNITS/ML 1ML VIAL SQ SCH ×2 (10:52→21:58)
[2018-10-14] MEDS: OMEGA-3 ACID ETHYL ESTERS (FATTY-ACIDS) 1 GM CAPSULE (FP) PO SCH ×2 (10:53→22:03)
[2018-10-14] MEDS: FEBUXOSTAT 40 MG TAB PO SCH (10:54)
[2018-10-14] MEDS: BUDESONIDE/FORMETEROL FUMARATE 160/4.5 mcg INHALER IH SCH (10:55)
[2018-10-14 11:33] LABS: ALK PHOS 97 U/L (45-117); ANION GAP 7 MMOL/L (8-16); BILIRUBIN,TOTAL 1.2 mg/dL (0.2-1); BLOOD UREA NITROGEN 52 mg/dL (7-18); CALCIUM 8.5 mg/dL (8.5-10.1); CHLORIDE 116 mmol/L (98-107); CO2 27 mmol/L (21-32); CREATININE 1.9 mg/dL (0.55-1.3); GLUCOSE,RANDOM 79 mg/dL (74-106); POTASSIUM 4.1 mmol/L (3.5-5.1); SGOT/AST 21 U/L (15-37); SGPT/ALT 7 U/L (13-61); SODIUM 150 mmol/L (136-145); TOT PROT 6.6 g/dl (6.4-8.2)
--- NOTE | 2018-10-14 17:32 | CONSULT ---
Consult Consult Specialty:: Nephrology Reason for Consultation:: GENET - History of Present Illness Chief Complaint: s/p fall History of Present Illness: Pt is an 88 year old female with pmhx of CKD, DM, HTN, epilepsy, gouth, GERD and falls who presents to the ER after a fall. She was found to have elevated creatinine and I was called to evaluate her. She denies shortness of breath. She complains of dysuria. She denies fevers or chills. She has poor po intake and has not been eating much. 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, Parkinson's Cardio/Vascular: Yes: HTN, Hyperlipdemia Pulmonary: Yes: COPD Gastrointestinal: Yes: GERD ...: No Rheumatology: Yes: Gout Endocrine: Yes: Diabetes Mellitus - Past Surgical History Past Surgical History: Yes: Cholecystectomy (12/10: Laparoscopic) - Alcohol/Substance Use Hx Alcohol Use: No - Smoking History Smoking history: Unknown if ever smoked Have you smoked in the past 12 months: No - Social History Usual Living Arrangement: Half-Way History of Recent Travel: No Home Medications - Allergies Allergies/Adverse Reactions: Allergies Allergy/AdvReac Type Severity Reaction Status Date / Time No Known Allergies Allergy Verified 12/21/17 18:40 - Home Medications Home Medications: Ambulatory Orders Albuterol Sulfate Inhaler - [Ventolin HFA Inhaler -] 1 - 2 inh PO QID 09/12/17 Atorvastatin Ca [Lipitor] 20 mg PO HS 09/12/17 Bimatoprost [Lumigan] 1 drop IO DAILY 09/12/17 Brimonidine Tartrate/Timolol [Combigan 0.2%-0.5% Eye Drops] 5 ml OP HS 09/12/17 Budesonide/Formeterol Fumarate [SYMBICORT 160/4.5mcg -] 1 inh PO DAILY 09/12/17 Febuxostat [Uloric] 40 mg PO DAILY 09/12/17 Icosapent Ethyl [Vascepa] 1 gm PO DAILY 09/12/17 Montelukast Na [Singulair -] 10 mg PO HS 09/12/17 Omeprazole 20 mg PO DAILY 09/12/17 Acetaminophen [Tylenol .Regular Strength -] 650 mg PO Q6H PRN tablet 12/26/17 Albuterol 2.5/Ipratropium 0.5 [Duoneb -] 1 amp NEB RQID amp 05/06/18 Carbidopa/Levodopa 25/100 [Sinemet 25/100 -] 1 each PO TID tablet 05/06/18 Insulin Sliding Scale [Novolog Vial Sliding Scale -] 1 vial SQ ACHS units 05/06 Sitagliptin Phosphate [Januvia -] 50 mg PO DAILY@0700 tablet 05/06/18 levETIRAcetam [Keppra -] 500 mg PO BID tablet 05/06/18 Brimonidine Tartrate [Alphagan 0.2% -] 1 drop OU HS drops 05/09/18 Heparin - 5,000 unit SQ BID vial 05/09/18 Latanoprost 0.005% Eye Drops [Xalatan 0.005% Eye Drops -] 1 drop OU HS drops Losartan Potassium [Cozaar -] 50 mg PO DAILY tablet 05/09/18 Family Disease History - Family Disease History Family Disease History: Diabetes: Daughter Review of Systems - Review of Systems Constitutional: reports: Malaise. denies: Chills, Fever Eyes: reports: No Symptoms Neck: reports: No Symptoms Cardiovascular: reports: No Symptoms Respiratory: reports: No Symptoms Gastrointestinal: reports: No Symptoms Genitourinary: reports: No Symptoms Musculoskeletal: reports: Other (s/p fall) Neurological: reports: No Symptoms Psychiatric: reports: No Symptoms Physical Exam Vital Signs: Vital Signs Temperature 97.2 F L 10/14/18 15:10 Pulse Rate 59 L 10/14/18 15:10 Respiratory Rate 18 10/14/18 15:10 Blood Pressure 163/68 10/14/18 15:10 O2 Sat by Pulse Oximetry (%) 96 10/13/18 20:55 Constitutional: Yes: Calm Eyes: Yes: Conjunctiva Clear HENT: Yes: Atraumatic Neck: Yes: Supple Cardiovascular: Yes: S1, S2 Respiratory: Yes: CTA Bilaterally Gastrointestinal: Yes: Soft Renal/: Yes: WNL Musculoskeletal: Yes: WNL Edema: No Neurological: Yes: Oriented Labs: CBC, BMP 10/14/18 09:55 10/14/18 09:15 Microbiology 10/13/18 10:20 Blood - Peripheral Venous Blood Culture - Preliminary NO GROWTH OBTAINED AFTER 24 HOURS, INCUBATION TO CONTINUE FOR 4 DAYS. 10/13/18 10:10 Blood - Peripheral Venous Blood Culture - Preliminary NO GROWTH OBTAINED AFTER 24 HOURS, INCUBATION TO CONTINUE FOR 4 DAYS. 10/13/18 10:05 Urine - Urine Clean Catch Urine Culture - Preliminary Lactose Fermenting Neg Bacilli Pending Organism Laboratory Tests 05/09/18 10/13/18 10/13/18 07:00 10:05 10:20 Hgb Creatinine 1.2 H 2.0 H Urine Protein 2+ H Urine Blood 1+ H Ur Leukocyte Esterase 3+ H 10/14/18 10/14/18 09:15 09:55 Hgb 10.0 L Creatinine 1.9 H Urine Protein Urine Blood Ur Leukocyte Esterase Imaging - Results Chest X-ray: Report Reviewed Ultrasound: Report Reviewed Problem List - Problems (1) Fall Code(s): W19.XXXA - UNSPECIFIED FALL, INITIAL ENCOUNTER Qualifiers: Encounter type: initial encounter Qualified Code(s): W19.XXXA - Unspecified fall, initial encounter (2) UTI (urinary tract infection) Code(s): N39.0 - URINARY TRACT INFECTION, SITE NOT SPECIFIED Qualifiers: Urinary tract infection type: site unspecified Hematuria presence: without hematuria Qualified Code(s): N39.0 - Urinary tract infection, site not specified Assessment/Plan Current Medications Generic Name Dose Route Start Last Admin Trade Name Freq PRN Reason Stop Dose Admin Acetaminophen 650 mg 10/13/18 18:32 Tylenol - PO Q6H PRN FEVER Albuterol/Ipratropium 1 amp 10/13/18 20:00 10/14/18 15:07 Duoneb - NEB 1 amp RQID MIA[facility] Administration Atorvastatin Calcium 20 mg 10/13/18 22:00 10/13/18 21:37 Lipitor - PO 20 mg HS MIAH Administration Brimonidine Tartrate 1 drop 10/13/18 22:00 10/13/18 21:37 Alphagan 0.2% - OU 1 drop HS [facility]IA[facility] Administration Budesonide/Formoterol Fumarate 1 puff 10/14/18 10:00 10/14/18 10:55 Symbicort 160/4.5mcg - IH Not Given DAILY [facility] Carbidopa/Levodopa 1 each 10/13/18 22:00 10/14/18 14:47 Sinemet 25/100 - PO 1 each TID [facility]IA[facility] Administration Febuxostat 40 mg 10/14/18 10:00 10/14/18 10:54 Uloric - PO 40 mg DAILY [facility] Administration Heparin Sodium (Porcine) 5,000 unit 10/13/18 22:00 10/14/18 10:52 Heparin - SQ 5,000 unit BID [facility] Administration Ceftriaxone Sodium 1 gm/ 50 mls @ 100 mls/hr 10/14/18 10:00 10/14/18 10:51 Dextrose IVPB 100 mls/hr DAILY [facility] Administration Protocol Insulin Aspart 1 vial 10/13/18 22:00 10/14/18 11:48 Novolog Vial Sliding Scale - SQ Not Given ACHS [facility] Protocol Latanoprost 1 drop 10/13/18 22:00 10/13/18 21:39 Xalatan 0.005% Eye Drops - OU 1 drop HS [facility] Administration Levetiracetam 500 mg 10/13/18 22:00 10/14/18 10:52 Keppra - PO 500 mg BID [facility] Administration Losartan Potassium 50 mg 10/14/18 10:00 10/14/18 10:52 Cozaar - PO 50 mg DAILY [facility] Administration Montelukast Sodium 10 mg 10/13/18 22:00 10/13/18 21:37 Singulair - PO 10 mg HS [facility] Administration [id number]-7-[id number] Ethyl Esters 2 gm 10/13/18 22:00 10/14/18 10:53 Lovaza - PO 2 gm BID [facility] Administration Pantoprazole Sodium 40 mg 10/14/18 10:00 10/14/18 10:52 Protonix - PO 40 mg DAILY [facility] Administration Sitagliptin Phosphate 50 mg 10/14/18 07:00 10/14/18 06:08 Januvia - PO 50 mg DAILY@0700 [facility] Administration Timolol Maleate 1 drop 10/13/18 22:00 10/13/18 21:39 Timoptic 0.5% OU 1 drop HS [facility] Administration Impression 1. GENET 2. CKD 3. DM 4. dementia 5. seizure 6. dementia 7. pulmonary nodule 8. anemia 9. hypernatremia 10. proteinuria 11. s/p fall 12. right side hydro Plan - start hypotonic fluids - place huber for hydro - if renal function worsens will need to hold arb - check lytes and zone manager to calc fena - abx for UTI
[2018-10-14] MEDS: SODIUM CHLORIDE 0.45% 1,000 ML IV SCH (18:56)
--- NOTE | 2018-10-14 19:10 | EKG ---
Test Reason : Blood Pressure : / mmHG Vent. Rate : 069 BPM Atrial Rate : 069 BPM P-R Int : 172 ms QRS Dur : 074 ms QT Int : 440 ms P-R-T Axes : 029 -03 057 degrees QTc Int : 471 ms NORMAL SINUS RHYTHM POSSIBLE LEFT ATRIAL ENLARGEMENT ANTEROSEPTAL INFARCT (CITED ON OR BEFORE 11-SEP-2017) ABNORMAL ECG WHEN COMPARED WITH ECG OF 24-DEC-2017 11:08, NO SIGNIFICANT CHANGE WAS FOUND Confirmed by HILDA JACOBSON MD ([id number]) on 10/14/2018 7:09:49 PM Referred By: Confirmed By:HILDA JACOBSON MD
[2018-10-14] MEDS ORDERED: PT OWN MED DRAWER 7, Y5N ONE (21:35)
[2018-10-14] MEDS: MONTELUKAST NA 10 MG TABLET PO SCH (21:58)
[2018-10-14] MEDS: ATORVASTATIN CA 20 MG TABLET (FP) PO SCH (21:58)
[2018-10-14] MEDS: BRIMONIDINE TARTRATE 0.2% OPHTHALMIC 5 ML BOTTLE OU SCH (22:04)
[2018-10-14] MEDS: TIMOLOL 0.5% OPHTHALMIC SOL 5 ML BOTTLE OU SCH (22:04)
[2018-10-14] MEDS: LATANOPROST 0.005% OPHTH SOLN 2.5ML BOTTLE OU SCH (22:04)
[2018-10-15 04:06] LABS: SERUM IRON SATURATION 18 % (15-55); TOTAL IRON BINDING CAPACITY 271 ug/dL (250-450); UIBC 223 ug/dL (118-369)
[2018-10-15] MEDS: sitaGLIPtin PHOSPHATE 50 MG TABLET PO SCH (06:52)
[2018-10-15] MEDS: CARBIDOPA/LEVODOPA 25/100 TABLET (FP) PO SCH ×3 (06:53→21:35)
[2018-10-15] MEDS: INSULIN SLIDING SCALE (NOVOLOG) 1 VIAL SQ SCH ×4 (06:54→21:36)
[2018-10-15 07:15] LABS: BASO % 0.6 % (0-2.0); EOS % 0.9 % (0-4.5); HEMATOCRIT 32.2 % (32.4-45.2); HEMOGLOBIN 10.8 GM/dL (10.7-15.3); MCH 30.8 pg (25.7-33.7); MCHC 33.5 g/dl (32.0-36.0); MEAN CELL VOLUME 91.9 fl (80-96); MEAN PLT VOLUME 10.6 fl (7.5-11.1); MONO % 6.9 % (3.8-10.2); NEUT % 72.6 % (42.8-82.8); PLATELET COUNT 208 K/MM3 (134-434); RBC 3.51 M/mm3 (3.60-5.2); RDW 15.2 % (11.6-15.6); WHITE BLOOD COUNT 8.2 K/mm3 (4.0-10.0)
[2018-10-15] MEDS: ALBUTEROL SO4 2.5/IPRATROPIUM 0.5 INH SOL 3 ML VIAL.NEB. NEB SCH ×4 (07:20→20:18)
[2018-10-15 08:00] LABS: ALBUMIN 3.3 g/dl (3.4-5.0); ANION GAP 9 MMOL/L (8-16); BILIRUBIN,TOTAL 0.7 mg/dL (0.2-1); BLOOD UREA NITROGEN 51 mg/dL (7-18); CALCIUM 8.6 mg/dL (8.5-10.1); CHLORIDE 113 mmol/L (98-107); CO2 24 mmol/L (21-32); CREATININE 1.9 mg/dL (0.55-1.3); GLUCOSE,RANDOM 56 mg/dL (74-106); POTASSIUM 4.1 mmol/L (3.5-5.1); SODIUM 146 mmol/L (136-145); TOT PROT 7.2 g/dl (6.4-8.2)
[2018-10-15 08:01] LABS: ALK PHOS 105 U/L (45-117); SGOT/AST 22 U/L (15-37); SGPT/ALT < 6 U/L (13-61)
[2018-10-15] MEDS: SODIUM CHLORIDE 0.45% 1,000 ML IV SCH ×2 (08:03→17:45)
--- NOTE | 2018-10-15 08:18 | PN ---
Progress Note, Physician - Current Medication List Current Medications: Active Medications Acetaminophen (Tylenol -) 650 mg PO Q6H PRN PRN Reason: FEVER Albuterol/Ipratropium (Duoneb -) 1 amp NEB RQID [facility] Last Admin: 10/14/18 20:35 Dose: 1 amp Atorvastatin Calcium (Lipitor -) 20 mg PO HS [facility] Last Admin: 10/14/18 21:58 Dose: 20 mg Brimonidine Tartrate (Alphagan 0.2% -) 1 drop OU HS [facility] Last Admin: 10/14/18 22:04 Dose: 1 drop Budesonide/Formoterol Fumarate (Symbicort 160/4.5mcg -) 1 puff IH DAILY [facility] Last Admin: 10/14/18 10:55 Dose: Not Given Carbidopa/Levodopa (Sinemet 25/100 -) 1 each PO TID [facility] Last Admin: 10/15/18 06:53 Dose: 1 each Febuxostat (Uloric -) 40 mg PO DAILY [facility] Last Admin: 10/14/18 10:54 Dose: 40 mg Heparin Sodium (Porcine) (Heparin -) 5,000 unit SQ BID [facility] Last Admin: 10/14/18 21:58 Dose: 5,000 unit Ceftriaxone Sodium 1 gm/ (Dextrose) 50 mls @ 100 mls/hr IVPB DAILY [facility]; Protocol Last Admin: 10/14/18 10:51 Dose: 100 mls/hr Sodium Chloride (1/2 Normal Saline) 1,000 mls @ 75 mls/hr IV ASDIR [facility] Last Admin: 10/15/18 08:03 Dose: 75 mls/hr Insulin Aspart (Novolog Vial Sliding Scale -) 1 vial SQ ACHS [facility]; Protocol Last Admin: 10/15/18 06:54 Dose: Not Given Latanoprost (Xalatan 0.005% Eye Drops -) 1 drop OU HS [facility] Last Admin: 10/14/18 22:04 Dose: 1 drop Levetiracetam (Keppra -) 500 mg PO BID [facility] Last Admin: 10/14/18 21:58 Dose: 500 mg Losartan Potassium (Cozaar -) 50 mg PO DAILY [facility] Last Admin: 10/14/18 10:52 Dose: 50 mg Montelukast Sodium (Singulair -) 10 mg PO HS [facility] Last Admin: 10/14/18 21:58 Dose: 10 mg Rueqb-6-Acqr Ethyl Esters (Lovaza -) 2 gm PO BID [facility] Last Admin: 10/14/18 22:03 Dose: 2 gm Pantoprazole Sodium (Protonix -) 40 mg PO DAILY [facility] Last Admin: 10/14/18 10:52 Dose: 40 mg Sitagliptin Phosphate (Januvia -) 50 mg PO DAILY@0700 [facility] Last Admin: 10/15/18 06:52 Dose: 50 mg Timolol Maleate (Timoptic 0.5%) 1 drop OU HS [facility] Last Admin: 10/14/18 22:04 Dose: 1 drop - Objective Vital Signs: Vital Signs Temperature 97.5 F L 10/15/18 06:00 Pulse Rate 72 10/15/18 06:00 Respiratory Rate 20 10/15/18 06:00 Blood Pressure 186/92 H 10/15/18 06:00 O2 Sat by Pulse Oximetry (%) 96 10/14/18 22:00 Labs: CBC, BMP 10/15/18 06:30 10/15/18 06:30
[2018-10-15] MEDS ORDERED: PT OWN MED DRAWER 7, Y5N ONE ×2 (10:16→17:25)
[2018-10-15] MEDS ORDERED: cefTRIAXone SODIUM 1 GM VIAL ONE (10:30)
[2018-10-15] MEDS ORDERED: DEXTROSE 5%-WATER - 50 ML IVPB ONE (10:30)
[2018-10-15] MEDS: LOSARTAN POTASSIUM 50 MG TABLET (FP) PO SCH (10:35)
[2018-10-15] MEDS: HEPARIN NA (PORCINE) 5,000 UNITS/ML 1ML VIAL SQ SCH ×2 (10:35→21:34)
[2018-10-15] MEDS: OMEGA-3 ACID ETHYL ESTERS (FATTY-ACIDS) 1 GM CAPSULE (FP) PO SCH ×2 (10:35→21:35)
[2018-10-15] MEDS: CEFTRIAXONE 1 GM in DEXTROSE 5%-WATER - 50 ML IVPB SCH (10:35)
[2018-10-15] MEDS: levETIRAcetam 500 MG TABLET (FP) PO SCH ×2 (10:35→21:35)
[2018-10-15] MEDS: PANTOPRAZOLE 40 MG TABLET (FP) PO SCH (10:35)
[2018-10-15] MEDS: FEBUXOSTAT 40 MG TAB PO SCH (10:36)
[2018-10-15] MEDS: BUDESONIDE/FORMETEROL FUMARATE 160/4.5 mcg INHALER IH SCH (11:07)
--- NOTE | 2018-10-15 11:52 | PN ---
Progress Note, Physician Chief Complaint: S/p fall UTI History of Present Illness: Previous notes and events reviewed awake and alert NAD denies complaints of chest pain or SOB Renal US shows mild right hydronephrosis UC positive - Current Medication List Current Medications: Active Medications Acetaminophen (Tylenol -) 650 mg PO Q6H PRN PRN Reason: FEVER Albuterol/Ipratropium (Duoneb -) 1 amp NEB RQID [facility] Last Admin: 10/15/18 11:44 Dose: 1 amp Atorvastatin Calcium (Lipitor -) 20 mg PO HS [facility] Last Admin: 10/14/18 21:58 Dose: 20 mg Brimonidine Tartrate (Alphagan 0.2% -) 1 drop OU HS [facility] Last Admin: 10/14/18 22:04 Dose: 1 drop Budesonide/Formoterol Fumarate (Symbicort 160/4.5mcg -) 1 puff IH DAILY [facility] Last Admin: 10/15/18 11:07 Dose: 1 puff Carbidopa/Levodopa (Sinemet 25/100 -) 1 each PO TID [facility] Last Admin: 10/15/18 06:53 Dose: 1 each Febuxostat (Uloric -) 40 mg PO DAILY [facility] Last Admin: 10/15/18 10:36 Dose: 40 mg Heparin Sodium (Porcine) (Heparin -) 5,000 unit SQ BID [facility] Last Admin: 10/15/18 10:35 Dose: 5,000 unit Ceftriaxone Sodium 1 gm/ (Dextrose) 50 mls @ 100 mls/hr IVPB DAILY [facility]; Protocol Last Admin: 10/15/18 10:35 Dose: 100 mls/hr Sodium Chloride (1/2 Normal Saline) 1,000 mls @ 75 mls/hr IV ASDIR [facility] Last Admin: 10/15/18 08:03 Dose: 75 mls/hr Insulin Aspart (Novolog Vial Sliding Scale -) 1 vial SQ ACHS [facility]; Protocol Last Admin: 10/15/18 11:34 Dose: Not Given Latanoprost (Xalatan 0.005% Eye Drops -) 1 drop OU HS [facility] Last Admin: 10/14/18 22:04 Dose: 1 drop Levetiracetam (Keppra -) 500 mg PO BID [facility] Last Admin: 10/15/18 10:35 Dose: 500 mg Losartan Potassium (Cozaar -) 50 mg PO DAILY [facility] Last Admin: 10/15/18 10:35 Dose: 50 mg Montelukast Sodium (Singulair -) 10 mg PO [facility] Last Admin: 10/14/18 21:58 Dose: 10 mg Vcwng-[id number] Ethyl Esters (Lovaza -) 2 gm PO BID [facility] Last Admin: 10/15/18 10:35 Dose: 2 gm Pantoprazole Sodium (Protonix -) 40 mg PO DAILY [facility] Last Admin: 10/15/18 10:35 Dose: 40 mg Sitagliptin Phosphate (Januvia -) 50 mg PO DAILY@0700 [facility] Last Admin: 10/15/18 06:52 Dose: 50 mg Timolol Maleate (Timoptic 0.5%) 1 drop OU [facility] Last Admin: 10/14/18 22:04 Dose: 1 drop - Objective Vital Signs: Vital Signs Temperature 98.1 F 10/15/18 10:06 Pulse Rate 70 10/15/18 10:06 Respiratory Rate 20 10/15/18 10:06 Blood Pressure 142/80 10/15/18 10:06 O2 Sat by Pulse Oximetry (%) 96 10/14/18 22:00 Constitutional: Yes: Well Nourished, No Distress, Calm Eyes: Yes: Conjunctiva Clear Neck: Yes: Supple Cardiovascular: Yes: Regular Rate and Rhythm Respiratory: Yes: Regular, CTA Bilaterally Gastrointestinal: Yes: Normal Bowel Sounds, Soft Genitourinary: Yes: Incontinence Musculoskeletal: Yes: Muscle Weakness Extremities: Yes: WNL Edema: No Integumentary: Yes: WNL Neurological: Yes: Alert, Pre-Existing Deficit Psychiatric: Yes: Alert Labs: CBC, BMP 10/15/18 06:30 10/15/18 06:30 <Diana Galarza - Last Filed: 10/15/18 11:46> - Current Medication List Current Medications: Active Medications Acetaminophen (Tylenol -) 650 mg PO Q6H PRN PRN Reason: FEVER Albuterol/Ipratropium (Duoneb -) 1 amp NEB RQID [facility] Last Admin: 10/15/18 20:18 Dose: 1 amp Atorvastatin Calcium (Lipitor -) 20 mg PO [facility] Last Admin: 10/14/18 21:58 Dose: 20 mg Brimonidine Tartrate (Alphagan 0.2% -) 1 drop OU [facility] Last Admin: 10/14/18 22:04 Dose: 1 drop Budesonide/Formoterol Fumarate (Symbicort 160/4.5mcg -) 1 puff IH DAILY [facility] Last Admin: 10/15/18 11:07 Dose: 1 puff Carbidopa/Levodopa (Sinemet 25/100 -) 1 each PO TID [facility] Last Admin: 10/15/18 13:58 Dose: 1 each Febuxostat (Uloric -) 40 mg PO DAILY [facility] Last Admin: 10/15/18 10:36 Dose: 40 mg Heparin Sodium (Porcine) (Heparin -) 5,000 unit SQ BID [facility] Last Admin: 10/15/18 10:35 Dose: 5,000 unit Ceftriaxone Sodium 1 gm/ (Dextrose) 50 mls @ 100 mls/hr IVPB DAILY [facility]; Protocol Last Admin: 10/15/18 10:35 Dose: 100 mls/hr Sodium Chloride (1/2 Normal Saline) 1,000 mls @ 75 mls/hr IV ASDIR [facility] Last Admin: 10/15/18 08:03 Dose: 75 mls/hr Insulin Aspart (Novolog Vial Sliding Scale -) 1 vial SQ ACHS [facility]; Protocol Last Admin: 10/15/18 17:27 Dose: Not Given Latanoprost (Xalatan 0.005% Eye Drops -) 1 drop OU HS [facility] Last Admin: 10/14/18 22:04 Dose: 1 drop Levetiracetam (Keppra -) 500 mg PO BID [facility] Last Admin: 10/15/18 10:35 Dose: 500 mg Losartan Potassium (Cozaar -) 50 mg PO DAILY [facility] Last Admin: 10/15/18 10:35 Dose: 50 mg Montelukast Sodium (Singulair -) 10 mg PO HS [facility] Last Admin: 10/14/18 21:58 Dose: 10 mg Bthuk-7-Ffml Ethyl Esters (Lovaza -) 2 gm PO BID [facility] Last Admin: 10/15/18 10:35 Dose: 2 gm Pantoprazole Sodium (Protonix -) 40 mg PO DAILY [facility] Last Admin: 10/15/18 10:35 Dose: 40 mg Sitagliptin Phosphate (Januvia -) 50 mg PO DAILY@0700 [facility] Last Admin: 10/15/18 06:52 Dose: 50 mg Timolol Maleate (Timoptic 0.5%) 1 drop OU HS [facility] Last Admin: 10/14/18 22:04 Dose: 1 drop - Objective Vital Signs: Vital Signs Temperature 97.5 F L 10/15/18 15:35 Pulse Rate 66 10/15/18 15:35 Respiratory Rate 20 10/15/18 15:35 Blood Pressure 145/73 10/15/18 15:35 O2 Sat by Pulse Oximetry (%) 96 10/15/18 09:00 Labs: CBC, BMP 10/15/18 06:30 10/15/18 06:30 <Akila Madera - Last Filed: 10/15/18 20:54> Problem List - Problems (1) Elevated troponin Code(s): R74.8 - ABNORMAL LEVELS OF OTHER SERUM ENZYMES (2) Fall Code(s): W19.XXXA - UNSPECIFIED FALL, INITIAL ENCOUNTER Qualifiers: Encounter type: initial encounter Qualified Code(s): W19.XXXA - Unspecified fall, initial encounter (3) UTI (urinary tract infection) Code(s): N39.0 - URINARY TRACT INFECTION, SITE NOT SPECIFIED Qualifiers: Urinary tract infection type: site unspecified Hematuria presence: without hematuria Qualified Code(s): N39.0 - Urinary tract infection, site not specified (4) Weakness Code(s): R53.1 - WEAKNESS (5) GENET (acute kidney injury) Code(s): N17.9 - ACUTE KIDNEY FAILURE, UNSPECIFIED (6) Anemia Code(s): D64.9 - ANEMIA, UNSPECIFIED <Diana Galarza - Last Filed: 10/15/18 11:46> Assessment/Plan -repeat troponin ordered to monitor for downward trend -PT eval -safety precautions, seizure precautions -contact precautions due to UTI -IV ABT -ID on board -tylenol for fever >100F -urology consult -UC pending -afebrile and wbc nl -Renal on board -cont to trend BUN/Cr -IVF as ordered -H/H currently stable, will cont to monitor -transfuse if Hg <8.0 -dvt ppx -low Na/diabetic diet <Diana Galarza - Last Filed: 10/15/18 11:46> PATIENT SEEN AND EXAMINED AND I AGREE WITH THE ABOVE NOTE <Santy,Ammir - Last Filed: 10/15/18 20:54>
--- NOTE | 2018-10-15 13:43 | CON.GU ---
Consult Consult Specialty:: urology Referred by:: Santy Reason for Consultation:: uti/renal insufficiency - History of Present Illness Chief Complaint: uti/renal insufficiency History of Present Illness: Patiyimi is an 88 year old female with history of DM, htn, gout, and parkinsons's disease who is admitted s/p a fall. The patient denies right flank pain or nausea or vomiting. The patient is currently on antibiotics for a uti. A renal sonogram was remarkable for mild right renal pelvis fullness. The patient does not have a history of stones. CT and MRI studies and previous renal sonograms performed over the last year showed no evidency of stones or other abnormality. The patient's creatinine in summer was 1.2 and is currently 1.9. 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 Cardio/Vascular: Yes: HTN, Hyperlipdemia Pulmonary: Yes: COPD Gastrointestinal: Yes: GERD ...: No Rheumatology: Yes: Gout Endocrine: Yes: Diabetes Mellitus - Past Surgical History Past Surgical History: Yes: Cholecystectomy (12/10: Laparoscopic) - Alcohol/Substance Use Hx Alcohol Use: No - Smoking History Smoking history: Unknown if ever smoked Have you smoked in the past 12 months: No - Social History Usual Living Arrangement: Senior Living History of Recent Travel: No Home Medications - Allergies Allergies/Adverse Reactions: Allergies Allergy/AdvReac Type Severity Reaction Status Date / Time No Known Allergies Allergy Verified 12/21/17 18:40 - Home Medications Home Medications: Ambulatory Orders Albuterol Sulfate Inhaler - [Ventolin HFA Inhaler -] 1 - 2 inh PO QID 09/12/17 Atorvastatin Ca [Lipitor] 20 mg PO HS 09/12/17 Bimatoprost [Lumigan] 1 drop IO DAILY 09/12/17 Brimonidine Tartrate/Timolol [Combigan 0.2%-0.5% Eye Drops] 5 ml OP HS 09/12/17 Budesonide/Formeterol Fumarate [SYMBICORT 160/4.5mcg -] 1 inh PO DAILY 09/12/17 Febuxostat [Uloric] 40 mg PO DAILY 09/12/17 Icosapent Ethyl [Vascepa] 1 gm PO DAILY 09/12/17 Montelukast Na [Singulair -] 10 mg PO HS 09/12/17 Omeprazole 20 mg PO DAILY 09/12/17 Acetaminophen [Tylenol .Regular Strength -] 650 mg PO Q6H PRN tablet 12/26/17 Albuterol 2.5/Ipratropium 0.5 [Duoneb -] 1 amp NEB RQID amp 05/06/18 Carbidopa/Levodopa 25/100 [Sinemet 25/100 -] 1 each PO TID tablet 05/06/18 Insulin Sliding Scale [Novolog Vial Sliding Scale -] 1 vial SQ ACHS units 05/06 Sitagliptin Phosphate [Januvia -] 50 mg PO DAILY@0700 tablet 05/06/18 levETIRAcetam [Keppra -] 500 mg PO BID tablet 05/06/18 Brimonidine Tartrate [Alphagan 0.2% -] 1 drop OU HS drops 05/09/18 Heparin - 5,000 unit SQ BID vial 05/09/18 Latanoprost 0.005% Eye Drops [Xalatan 0.005% Eye Drops -] 1 drop OU HS drops Losartan Potassium [Cozaar -] 50 mg PO DAILY tablet 05/09/18 Family Disease History - Family Disease History Family Disease History: Diabetes: Daughter Physical Exam- Vital Signs: Vital Signs Temperature 98.1 F 10/15/18 10:06 Pulse Rate 70 10/15/18 10:06 Respiratory Rate 20 10/15/18 10:06 Blood Pressure 142/80 10/15/18 10:06 O2 Sat by Pulse Oximetry (%) 96 10/15/18 09:00 Constitutional: Yes: Well Nourished, No Distress, Calm Eyes: Yes: WNL, Conjunctiva Clear, EOM Intact HENT: Yes: WNL, Atraumatic, Normocephalic Neck: Yes: WNL, Supple, Trachea Midline Cardiovascular: Yes: Regular Rate and Rhythm Respiratory: Yes: Regular Gastrointestinal: Yes: WNL, Normal Bowel Sounds, Soft Kidneys: Yes: WNL Pelvis: Yes: WNL External Genitalia: Yes: WNL Labs: CBC, BMP 10/15/18 06:30 10/15/18 06:30 Imaging - Results Cat Scan: Report Reviewed Ultrasound: Report Reviewed MRI: Report Reviewed Assessment/Plan imp uti mild right renal pelvis fullness renal insufficiency plan continue antibiotics hydration follow creatinine It is highly unlikely that the patient has right sided renal obstruction. Would observe at this time.
--- NOTE | 2018-10-15 16:58 | PN ---
Progress Note, Physician History of Present Illness: Pt seen and examined at bedside. She says that her appetite is improved. - Current Medication List Current Medications: Active Medications Acetaminophen (Tylenol -) 650 mg PO Q6H PRN PRN Reason: FEVER Albuterol/Ipratropium (Duoneb -) 1 amp NEB RQID [facility] Last Admin: 10/15/18 16:14 Dose: Not Given Atorvastatin Calcium (Lipitor -) 20 mg PO HS [facility] Last Admin: 10/14/18 21:58 Dose: 20 mg Brimonidine Tartrate (Alphagan 0.2% -) 1 drop OU HS [facility] Last Admin: 10/14/18 22:04 Dose: 1 drop Budesonide/Formoterol Fumarate (Symbicort 160/4.5mcg -) 1 puff IH DAILY [facility] Last Admin: 10/15/18 11:07 Dose: 1 puff Carbidopa/Levodopa (Sinemet 25/100 -) 1 each PO TID [facility] Last Admin: 10/15/18 13:58 Dose: 1 each Febuxostat (Uloric -) 40 mg PO DAILY [facility] Last Admin: 10/15/18 10:36 Dose: 40 mg Heparin Sodium (Porcine) (Heparin -) 5,000 unit SQ BID [facility] Last Admin: 10/15/18 10:35 Dose: 5,000 unit Ceftriaxone Sodium 1 gm/ (Dextrose) 50 mls @ 100 mls/hr IVPB DAILY [facility]; Protocol Last Admin: 10/15/18 10:35 Dose: 100 mls/hr Sodium Chloride (1/2 Normal Saline) 1,000 mls @ 75 mls/hr IV ASDIR [facility] Last Admin: 10/15/18 08:03 Dose: 75 mls/hr Insulin Aspart (Novolog Vial Sliding Scale -) 1 vial SQ ACHS [facility]; Protocol Last Admin: 10/15/18 11:34 Dose: Not Given Latanoprost (Xalatan 0.005% Eye Drops -) 1 drop OU HS [facility] Last Admin: 10/14/18 22:04 Dose: 1 drop Levetiracetam (Keppra -) 500 mg PO BID [facility] Last Admin: 10/15/18 10:35 Dose: 500 mg Losartan Potassium (Cozaar -) 50 mg PO DAILY [facility] Last Admin: 10/15/18 10:35 Dose: 50 mg Montelukast Sodium (Singulair -) 10 mg PO [facility] Last Admin: 10/14/18 21:58 Dose: 10 mg Jffcq-0-Gwcj Ethyl Esters (Lovaza -) 2 gm PO BID [facility] Last Admin: 10/15/18 10:35 Dose: 2 gm Pantoprazole Sodium (Protonix -) 40 mg PO DAILY [facility] Last Admin: 10/15/18 10:35 Dose: 40 mg Sitagliptin Phosphate (Januvia -) 50 mg PO DAILY@0700 [facility] Last Admin: 10/15/18 06:52 Dose: 50 mg Timolol Maleate (Timoptic 0.5%) 1 drop OU [facility] Last Admin: 10/14/18 22:04 Dose: 1 drop - Objective Vital Signs: Vital Signs Temperature 97.5 F L 10/15/18 15:35 Pulse Rate 66 10/15/18 15:35 Respiratory Rate 20 10/15/18 15:35 Blood Pressure 145/73 10/15/18 15:35 O2 Sat by Pulse Oximetry (%) 96 10/15/18 09:00 Constitutional: Yes: Calm Eyes: Yes: Conjunctiva Clear Neck: Yes: Supple Cardiovascular: Yes: S1, S2 Respiratory: Yes: CTA Bilaterally Gastrointestinal: Yes: Soft Genitourinary: Yes: WNL Musculoskeletal: Yes: WNL Edema: No Neurological: Yes: Oriented Psychiatric: Yes: Oriented Labs: CBC, BMP 10/15/18 06:30 10/15/18 06:30 Problem List - Problems (1) Fall Code(s): W19.XXXA - UNSPECIFIED FALL, INITIAL ENCOUNTER Qualifiers: Encounter type: initial encounter Qualified Code(s): W19.XXXA - Unspecified fall, initial encounter (2) UTI (urinary tract infection) Code(s): N39.0 - URINARY TRACT INFECTION, SITE NOT SPECIFIED Qualifiers: Urinary tract infection type: site unspecified Hematuria presence: without hematuria Qualified Code(s): N39.0 - Urinary tract infection, site not specified Assessment/Plan Current Medications Generic Name Dose Route Start Last Admin Trade Name Freq PRN Reason Stop Dose Admin Acetaminophen 650 mg 10/13/18 18:32 Tylenol - PO Q6H PRN FEVER Albuterol/Ipratropium 1 amp 10/13/18 20:00 10/15/18 16:14 Duoneb - NEB Not Given RQID [facility] Atorvastatin Calcium 20 mg 10/13/18 22:00 10/14/18 21:58 Lipitor - PO 20 mg HS [facility] Administration Brimonidine Tartrate 1 drop 10/13/18 22:00 10/14/18 22:04 Alphagan 0.2% - OU 1 drop HS [facility] Administration Budesonide/Formoterol Fumarate 1 puff 10/14/18 10:00 10/15/18 11:07 Symbicort 160/4.5mcg - IH 1 puff DAILY [facility] Administration Carbidopa/Levodopa 1 each 10/13/18 22:00 10/15/18 13:58 Sinemet 25/100 - PO 1 each TID [facility] Administration Febuxostat 40 mg 10/14/18 10:00 10/15/18 10:36 Uloric - PO 40 mg DAILY [facility] Administration Heparin Sodium (Porcine) 5,000 unit 10/13/18 22:00 10/15/18 10:35 Heparin - SQ 5,000 unit BID [facility] Administration Ceftriaxone Sodium 1 gm/ 50 mls @ 100 mls/hr 10/14/18 10:00 10/15/18 10:35 Dextrose IVPB 100 mls/hr DAILY [facility] Administration Protocol Sodium Chloride 1,000 mls @ 75 mls/hr 10/14/18 17:45 10/15/18 08:03 1/2 Normal Saline IV 75 mls/hr ASDIR [facility] Administration Insulin Aspart 1 vial 10/13/18 22:00 10/15/18 11:34 Novolog Vial Sliding Scale - SQ Not Given ACHS [facility] Protocol Latanoprost 1 drop 10/13/18 22:00 10/14/18 22:04 Xalatan 0.005% Eye Drops - OU 1 drop HS [facility] Administration Levetiracetam 500 mg 10/13/18 22:00 10/15/18 10:35 Keppra - PO 500 mg BID [facility] Administration Losartan Potassium 50 mg 10/14/18 10:00 10/15/18 10:35 Cozaar - PO 50 mg DAILY [facility] Administration Montelukast Sodium 10 mg 10/13/18 22:00 10/14/18 21:58 Singulair - PO 10 mg HS [facility] Administration Myfim-9-Mfbt Ethyl Esters 2 gm 10/13/18 22:00 10/15/18 10:35 Lovaza - PO 2 gm BID [facility] Administration Pantoprazole Sodium 40 mg 10/14/18 10:00 10/15/18 10:35 Protonix - PO 40 mg DAILY [facility] Administration Sitagliptin Phosphate 50 mg 10/14/18 07:00 10/15/18 06:52 Januvia - PO 50 mg DAILY@0700 [facility] Administration Timolol Maleate 1 drop 10/13/18 22:00 10/14/18 22:04 Timoptic 0.5% OU 1 drop HS [facility] Administration Impression 1. GENET 2. CKD 3. DM 4. dementia 5. seizure 6. dementia 7. pulmonary nodule 8. anemia 9. hypernatremia 10. proteinuria 11. s/p fall 12. right side hydro Plan - cont with fluids - urology input appreciated - abx for UTI - repeat labs in am - if renal function worsens will need to hold arb - check lytes and injector assembler to calc fena
[2018-10-15] MEDS: ATORVASTATIN CA 20 MG TABLET (FP) PO SCH (21:35)
[2018-10-15] MEDS: MONTELUKAST NA 10 MG TABLET PO SCH (21:35)
[2018-10-15] MEDS: LATANOPROST 0.005% OPHTH SOLN 2.5ML BOTTLE OU SCH (21:37)
[2018-10-15] MEDS: BRIMONIDINE TARTRATE 0.2% OPHTHALMIC 5 ML BOTTLE OU SCH (21:37)
[2018-10-15] MEDS: TIMOLOL 0.5% OPHTHALMIC SOL 5 ML BOTTLE OU SCH (21:38)
--- NOTE | 2018-10-15 23:13 | PN ---
Progress Note (short form) - Note Progress Note: ID CONSULT DICTATED UTI R/O SEPSIS SECONDARY TO AZOTEMIA ? TOXIC METABOLIC ENCEPHALOPATHY
--- NOTE | 2018-10-16 00:18 | CONS ---
DATE OF CONSULTATION: DATE OF DICTATION: 10/15/2018 HISTORY OF PRESENT ILLNESS: The patient is an 88-year-old female evaluated for possible sepsis secondary to urinary tract infection. She was admitted to the hospital on October 13, 2018, with worsening weakness. Patient had a mechanical fall at home sustaining trauma to her buttocks. Family reported that she had malodorous urine. In the emergency room, catheterization was performed and urine was grossly cloudy. She was noted to have mild right hydronephrosis on sonogram and pyuria on urinalysis. At the present time, she is awake and alert. She offers no complaints. PAST MEDICAL HISTORY: Positive for dementia, Parkinsonism, insulin dependent diabetes mellitus, hypertension, COPD, hyperlipidemia, seizure disorder, gouty arthritis, gastroesophageal reflux. PAST SURGICAL HISTORY: Status post cholecystectomy. ALLERGIES: No known drug allergies. MEDICATIONS: At the present time include Symbicort, Tylenol, Cozaar, ceftriaxone, Keppra, Lovaza, Januvia, Sinemet, Lipitor, Protonix. SOCIAL HISTORY: Patient is a nonsmoker, nondrinker. She resides in the community. REVIEW OF SYSTEMS: Neurologic: Positive for dementia and Parkinsonism. Cardiac: Negative for chest pain or palpitations. Respiratory: Negative for cough or sputum production. Gastrointestinal: Negative for vomiting or diarrhea. Genitourinary: As per HPI. LABORATORY DATA: White count 8.2, hematocrit 32.2, platelet count 208. BUN 51, creatinine 1.9. Urinalysis: 526 white cells. Blood cultures: Preliminarily negative. Urine culture: Escherichia coli sensitive to ceftriaxone. PHYSICAL EXAMINATION: General: She is awake and alert, in no acute distress. Vital Signs: Temperature 97.5, blood pressure 145/73, pulse 66 and regular, respirations are 20 per minute. HEENT: Sclerae are anicteric. Heart Sounds: S1, S2. Lungs: Clear. Abdomen: Soft. No suprapubic or flank tenderness. Extremities: 1+ edema. IMPRESSION: 1. Urinary tract infection. Rule out sepsis secondary to genitourinary focus. 2. Possible toxic metabolic encephalopathy. 3. Azotemia. PLAN: Await blood culture results. Continue treatment of Escherichia coli urinary tract infection with ceftriaxone. Further recommendations pending culture result, will follow. Thank you for the kind referral. MONICA CAMPUZANO M.D. [id number]
[2018-10-16] MEDS: sitaGLIPtin PHOSPHATE 50 MG TABLET PO SCH (06:56)
[2018-10-16] MEDS: CARBIDOPA/LEVODOPA 25/100 TABLET (FP) PO SCH ×3 (06:56→21:31)
[2018-10-16] MEDS: INSULIN SLIDING SCALE (NOVOLOG) 1 VIAL SQ SCH ×4 (06:56→21:35)
[2018-10-16] MEDS: ALBUTEROL SO4 2.5/IPRATROPIUM 0.5 INH SOL 3 ML VIAL.NEB. NEB SCH ×4 (07:25→20:35)
[2018-10-16 07:57] LABS: BASO % 0.4 % (0-2.0); EOS % 1.1 % (0-4.5); HEMATOCRIT 29.7 % (32.4-45.2); HEMOGLOBIN 9.8 GM/dL (10.7-15.3); LYMPH % 21.9 % (8-40); MCH 30.7 pg (25.7-33.7); MCHC 33.2 g/dl (32.0-36.0); MEAN CELL VOLUME 92.4 fl (80-96); MEAN PLT VOLUME 11.2 fl (7.5-11.1); MONO % 7.2 % (3.8-10.2); NEUT % 69.4 % (42.8-82.8); PLATELET COUNT 201 K/MM3 (134-434); RBC 3.21 M/mm3 (3.60-5.2); RDW 15.6 % (11.6-15.6); WHITE BLOOD COUNT 7.3 K/mm3 (4.0-10.0)
[2018-10-16 08:04] LABS: ALBUMIN 2.9 g/dl (3.4-5.0); ALK PHOS 111 U/L (45-117); ANION GAP 11 MMOL/L (8-16); BILIRUBIN,TOTAL 0.2 mg/dL (0.2-1); BLOOD UREA NITROGEN 48 mg/dL (7-18); CALCIUM 8.4 mg/dL (8.5-10.1); CHLORIDE 110 mmol/L (98-107); CO2 23 mmol/L (21-32); GLUCOSE,RANDOM 139 mg/dL (74-106); POTASSIUM 3.9 mmol/L (3.5-5.1); SGOT/AST 19 U/L (15-37); SGPT/ALT 8 U/L (13-61); SODIUM 145 mmol/L (136-145); TOT PROT 6.7 g/dl (6.4-8.2)
[2018-10-16] MEDS ORDERED: cefTRIAXone SODIUM 1 GM VIAL ONE (09:39)
[2018-10-16] MEDS ORDERED: DEXTROSE 5%-WATER - 50 ML IVPB ONE (09:39)
[2018-10-16] MEDS: PANTOPRAZOLE 40 MG TABLET (FP) PO SCH (09:42)
[2018-10-16] MEDS: OMEGA-3 ACID ETHYL ESTERS (FATTY-ACIDS) 1 GM CAPSULE (FP) PO SCH ×2 (09:42→21:31)
[2018-10-16] MEDS: HEPARIN NA (PORCINE) 5,000 UNITS/ML 1ML VIAL SQ SCH ×2 (09:42→21:34)
[2018-10-16] MEDS: levETIRAcetam 500 MG TABLET (FP) PO SCH ×2 (09:42→21:31)
[2018-10-16] MEDS: LOSARTAN POTASSIUM 50 MG TABLET (FP) PO SCH (09:42)
[2018-10-16] MEDS: FEBUXOSTAT 40 MG TAB PO SCH (09:43)
[2018-10-16] MEDS: CEFTRIAXONE 1 GM in DEXTROSE 5%-WATER - 50 ML IVPB SCH (09:43)
[2018-10-16] MEDS: BUDESONIDE/FORMETEROL FUMARATE 160/4.5 mcg INHALER IH SCH (09:44)
--- NOTE | 2018-10-16 15:19 | PN ---
Progress Note, Physician Chief Complaint: AWAKE MORE ALERT DENIES CHEST PAIN OR SOB - Current Medication List Current Medications: Active Medications Acetaminophen (Tylenol -) 650 mg PO Q6H PRN PRN Reason: FEVER Albuterol/Ipratropium (Duoneb -) 1 amp NEB RQID [facility] Last Admin: 10/16/18 11:42 Dose: Not Given Atorvastatin Calcium (Lipitor -) 20 mg PO HS [facility] Last Admin: 10/15/18 21:35 Dose: 20 mg Brimonidine Tartrate (Alphagan 0.2% -) 1 drop OU HS [facility] Last Admin: 10/15/18 21:37 Dose: 1 drop Budesonide/Formoterol Fumarate (Symbicort 160/4.5mcg -) 1 puff IH DAILY [facility] Last Admin: 10/16/18 09:44 Dose: 1 puff Carbidopa/Levodopa (Sinemet 25/100 -) 1 each PO TID [facility] Last Admin: 10/16/18 13:26 Dose: 1 each Febuxostat (Uloric -) 40 mg PO DAILY [facility] Last Admin: 10/16/18 09:43 Dose: 40 mg Heparin Sodium (Porcine) (Heparin -) 5,000 unit SQ BID [facility] Last Admin: 10/16/18 09:42 Dose: 5,000 unit Ceftriaxone Sodium 1 gm/ (Dextrose) 50 mls @ 100 mls/hr IVPB DAILY [facility]; Protocol Last Admin: 10/16/18 09:43 Dose: 100 mls/hr Sodium Chloride (1/2 Normal Saline) 1,000 mls @ 75 mls/hr IV ASDIR [facility] Last Admin: 10/15/18 08:03 Dose: 75 mls/hr Insulin Aspart (Novolog Vial Sliding Scale -) 1 vial SQ ACHS [facility]; Protocol Last Admin: 10/16/18 11:42 Dose: Not Given Latanoprost (Xalatan 0.005% Eye Drops -) 1 drop OU HS [facility] Last Admin: 10/15/18 21:37 Dose: 1 drop Levetiracetam (Keppra -) 500 mg PO BID [facility] Last Admin: 10/16/18 09:42 Dose: 500 mg Losartan Potassium (Cozaar -) 50 mg PO DAILY [facility] Last Admin: 10/16/18 09:42 Dose: 50 mg Montelukast Sodium (Singulair -) 10 mg PO HS [facility] Last Admin: 10/15/18 21:35 Dose: 10 mg Sjywz-2-Qjxs Ethyl Esters (Lovaza -) 2 gm PO BID [facility] Last Admin: 10/16/18 09:42 Dose: 2 gm Pantoprazole Sodium (Protonix -) 40 mg PO DAILY [facility] Last Admin: 10/16/18 09:42 Dose: 40 mg Sitagliptin Phosphate (Januvia -) 50 mg PO DAILY@0700 [facility] Last Admin: 10/16/18 06:56 Dose: 50 mg Timolol Maleate (Timoptic 0.5%) 1 drop OU [facility] Last Admin: 10/15/18 21:38 Dose: 1 drop - Objective Vital Signs: Vital Signs Temperature 98.7 F 10/16/18 10:00 Pulse Rate 88 10/16/18 10:00 Respiratory Rate 20 10/16/18 10:00 Blood Pressure 140/90 10/16/18 10:00 O2 Sat by Pulse Oximetry (%) 97 10/16/18 09:00 Constitutional: Yes: No Distress Eyes: Yes: WNL HENT: Yes: WNL Neck: Yes: WNL Cardiovascular: Yes: Regular Rate and Rhythm Respiratory: Yes: On Nasal O2, Other Gastrointestinal: Yes: Soft Genitourinary: Yes: Incontinence Musculoskeletal: Yes: Muscle Weakness Edema: No Integumentary: Yes: WNL Wound/Incision: Yes: Clean/Dry Neurological: Yes: Pre-Existing Deficit Labs: CBC, BMP 10/16/18 07:00 10/16/18 07:00 Problem List - Problems (1) Fall Code(s): W19.XXXA - UNSPECIFIED FALL, INITIAL ENCOUNTER Qualifiers: Encounter type: initial encounter Qualified Code(s): W19.XXXA - Unspecified fall, initial encounter (2) UTI (urinary tract infection) Code(s): N39.0 - URINARY TRACT INFECTION, SITE NOT SPECIFIED Qualifiers: Urinary tract infection type: site unspecified Hematuria presence: without hematuria Qualified Code(s): N39.0 - Urinary tract infection, site not specified (3) Weakness Code(s): R53.1 - WEAKNESS (4) GENET (acute kidney injury) Code(s): N17.9 - ACUTE KIDNEY FAILURE, UNSPECIFIED (5) Acute respiratory failure Code(s): J96.00 - ACUTE RESPIRATORY FAILURE, UNSP W HYPOXIA OR HYPERCAPNIA Qualifiers: Respiratory failure complication: hypoxia Qualified Code(s): J96.01 - Acute respiratory failure with hypoxia (6) Anemia Code(s): D64.9 - ANEMIA, UNSPECIFIED Qualifiers: (7) COPD (chronic obstructive pulmonary disease) Code(s): J44.9 - CHRONIC OBSTRUCTIVE PULMONARY DISEASE, UNSPECIFIED (8) Diabetes Code(s): E11.9 - TYPE 2 DIABETES MELLITUS WITHOUT COMPLICATIONS Qualifiers: Diabetes mellitus type: type 2 Diabetes mellitus termite helper insulin use: without termite helper use Diabetes mellitus complication status: with hyperglycemia Qualified Code(s): E11.65 - Type 2 diabetes mellitus with hyperglycemia (9) Seizure Code(s): R56.9 - UNSPECIFIED CONVULSIONS Assessment/Plan IV CEFTRIAXONE FOR NOW AWAIT URINE CULTURES AND SENS. RENAL FUNCTION WORSE ON IVF HOLD LOSARTAN PT EVAL IN ISOLATION ROOM OOB TO CHAIR DVT PROPHYLAXIS
--- NOTE | 2018-10-16 16:01 | PN ---
Progress Note, Physician History of Present Illness: Pt seen and examined at bedside. She is awake and alert. Her PO intake is improved. - Current Medication List Current Medications: Active Medications Acetaminophen (Tylenol -) 650 mg PO Q6H PRN PRN Reason: FEVER Albuterol/Ipratropium (Duoneb -) 1 amp NEB RQID [facility] Last Admin: 10/16/18 11:42 Dose: Not Given Atorvastatin Calcium (Lipitor -) 20 mg PO HS [facility] Last Admin: 10/15/18 21:35 Dose: 20 mg Brimonidine Tartrate (Alphagan 0.2% -) 1 drop OU HS [facility] Last Admin: 10/15/18 21:37 Dose: 1 drop Budesonide/Formoterol Fumarate (Symbicort 160/4.5mcg -) 1 puff IH DAILY [facility] Last Admin: 10/16/18 09:44 Dose: 1 puff Carbidopa/Levodopa (Sinemet 25/100 -) 1 each PO TID [facility] Last Admin: 10/16/18 13:26 Dose: 1 each Febuxostat (Uloric -) 40 mg PO DAILY [facility] Last Admin: 10/16/18 09:43 Dose: 40 mg Heparin Sodium (Porcine) (Heparin -) 5,000 unit SQ BID [facility] Last Admin: 10/16/18 09:42 Dose: 5,000 unit Ceftriaxone Sodium 1 gm/ (Dextrose) 50 mls @ 100 mls/hr IVPB DAILY [facility]; Protocol Last Admin: 10/16/18 09:43 Dose: 100 mls/hr Sodium Chloride (1/2 Normal Saline) 1,000 mls @ 75 mls/hr IV ASDIR [facility] Last Admin: 10/15/18 08:03 Dose: 75 mls/hr Insulin Aspart (Novolog Vial Sliding Scale -) 1 vial SQ ACHS [facility]; Protocol Last Admin: 10/16/18 11:42 Dose: Not Given Latanoprost (Xalatan 0.005% Eye Drops -) 1 drop OU HS [facility] Last Admin: 10/15/18 21:37 Dose: 1 drop Levetiracetam (Keppra -) 500 mg PO BID [facility] Last Admin: 10/16/18 09:42 Dose: 500 mg Losartan Potassium (Cozaar -) 50 mg PO DAILY [facility] Last Admin: 10/16/18 09:42 Dose: 50 mg Montelukast Sodium (Singulair -) 10 mg PO HS [facility] Last Admin: 10/15/18 21:35 Dose: 10 mg Envgh-2-Ofjx Ethyl Esters (Lovaza -) 2 gm PO BID [facility] Last Admin: 10/16/18 09:42 Dose: 2 gm Pantoprazole Sodium (Protonix -) 40 mg PO DAILY [facility] Last Admin: 10/16/18 09:42 Dose: 40 mg Sitagliptin Phosphate (Januvia -) 50 mg PO DAILY@0700 [facility] Last Admin: 10/16/18 06:56 Dose: 50 mg Timolol Maleate (Timoptic 0.5%) 1 drop OU HS [facility] Last Admin: 10/15/18 21:38 Dose: 1 drop - Objective Vital Signs: Vital Signs Temperature 98.7 F 10/16/18 10:00 Pulse Rate 88 10/16/18 10:00 Respiratory Rate 20 10/16/18 10:00 Blood Pressure 140/90 10/16/18 10:00 O2 Sat by Pulse Oximetry (%) 97 10/16/18 09:00 Constitutional: Yes: Calm Eyes: Yes: Conjunctiva Clear HENT: Yes: Atraumatic Neck: Yes: Supple Cardiovascular: Yes: S1, S2 Respiratory: Yes: CTA Bilaterally Gastrointestinal: Yes: Normal Bowel Sounds, Soft Genitourinary: Yes: Incontinence Musculoskeletal: Yes: WNL Edema: No Neurological: Yes: Oriented Labs: CBC, BMP 10/16/18 07:00 10/16/18 07:00 Problem List - Problems (1) Fall Code(s): W19.XXXA - UNSPECIFIED FALL, INITIAL ENCOUNTER Qualifiers: Encounter type: initial encounter Qualified Code(s): W19.XXXA - Unspecified fall, initial encounter (2) UTI (urinary tract infection) Code(s): N39.0 - URINARY TRACT INFECTION, SITE NOT SPECIFIED Qualifiers: Urinary tract infection type: site unspecified Hematuria presence: without hematuria Qualified Code(s): N39.0 - Urinary tract infection, site not specified Assessment/Plan Current Medications Generic Name Dose Route Start Last Admin Trade Name Freq PRN Reason Stop Dose Admin Acetaminophen 650 mg 10/13/18 18:32 Tylenol - PO Q6H PRN FEVER Albuterol/Ipratropium 1 amp 10/13/18 20:00 10/16/18 11:42 Duoneb - NEB Not Given RQID [facility] Atorvastatin Calcium 20 mg 10/13/18 22:00 10/15/18 21:35 Lipitor - PO 20 mg HS [facility] Administration Brimonidine Tartrate 1 drop 10/13/18 22:00 10/15/18 21:37 Alphagan 0.2% - OU 1 drop HS [facility] Administration Budesonide/Formoterol Fumarate 1 puff 10/14/18 10:00 10/16/18 09:44 Symbicort 160/4.5mcg - IH 1 puff DAILY [facility] Administration Carbidopa/Levodopa 1 each 10/13/18 22:00 10/16/18 13:26 Sinemet 25/100 - PO 1 each TID [facility] Administration Febuxostat 40 mg 10/14/18 10:00 10/16/18 09:43 Uloric - PO 40 mg DAILY [facility] Administration Heparin Sodium (Porcine) 5,000 unit 10/13/18 22:00 10/16/18 09:42 Heparin - SQ 5,000 unit BID [facility] Administration Ceftriaxone Sodium 1 gm/ 50 mls @ 100 mls/hr 10/14/18 10:00 10/16/18 09:43 Dextrose IVPB 100 mls/hr DAILY [facility] Administration Protocol Sodium Chloride 1,000 mls @ 75 mls/hr 10/14/18 17:45 10/15/18 08:03 1/2 Normal Saline IV 75 mls/hr ASDIR [facility] Administration Insulin Aspart 1 vial 10/13/18 22:00 10/16/18 11:42 Novolog Vial Sliding Scale - SQ Not Given ACHS [facility] Protocol Latanoprost 1 drop 10/13/18 22:00 10/15/18 21:37 Xalatan 0.005% Eye Drops - OU 1 drop HS [facility] Administration Levetiracetam 500 mg 10/13/18 22:00 10/16/18 09:42 Keppra - PO 500 mg BID [facility] Administration Losartan Potassium 50 mg 10/14/18 10:00 10/16/18 09:42 Cozaar - PO 50 mg DAILY [facility] Administration Montelukast Sodium 10 mg 10/13/18 22:00 10/15/18 21:35 Singulair - PO 10 mg HS [facility] Administration Egzzj-8-Rgin Ethyl Esters 2 gm 10/13/18 22:00 10/16/18 09:42 Lovaza - PO 2 gm BID [facility] Administration Pantoprazole Sodium 40 mg 10/14/18 10:00 10/16/18 09:42 Protonix - PO 40 mg DAILY [facility] Administration Sitagliptin Phosphate 50 mg 10/14/18 07:00 10/16/18 06:56 Januvia - PO 50 mg DAILY@0700 [facility] Administration Timolol Maleate 1 drop 10/13/18 22:00 10/15/18 21:38 Timoptic 0.5% OU 1 drop HS [facility] Administration Impression 1. GENET 2. CKD 3. DM 4. dementia 5. seizure 6. dementia 7. pulmonary nodule 8. anemia 9. hypernatremia 10. proteinuria 11. s/p fall 12. right side hydro Plan - hold losartan as renal function is worse - repeat labs in am - check bladder scan - pt does have hydro - cont with fluids - abx for UTI - check lytes and product evangelist to calc fena
[2018-10-16] MEDS: SODIUM CHLORIDE 0.45% 1,000 ML IV SCH (16:56)
[2018-10-16] MEDS ORDERED: PT OWN MED DRAWER 7, Y5N ONE (21:27)
[2018-10-16] MEDS: BRIMONIDINE TARTRATE 0.2% OPHTHALMIC 5 ML BOTTLE OU SCH (21:30)
[2018-10-16] MEDS: MONTELUKAST NA 10 MG TABLET PO SCH (21:31)
[2018-10-16] MEDS: ATORVASTATIN CA 20 MG TABLET (FP) PO SCH (21:31)
[2018-10-16] MEDS: TIMOLOL 0.5% OPHTHALMIC SOL 5 ML BOTTLE OU SCH (21:32)
[2018-10-16] MEDS: LATANOPROST 0.005% OPHTH SOLN 2.5ML BOTTLE OU SCH (21:37)
[2018-10-17] MEDS: CARBIDOPA/LEVODOPA 25/100 TABLET (FP) PO SCH ×3 (06:10→21:45)
[2018-10-17] MEDS: sitaGLIPtin PHOSPHATE 50 MG TABLET PO SCH (06:10)
[2018-10-17] MEDS: SODIUM CHLORIDE 0.45% 1,000 ML IV SCH ×3 (06:10→21:58)
[2018-10-17] MEDS: INSULIN SLIDING SCALE (NOVOLOG) 1 VIAL SQ SCH ×4 (06:14→21:49)
[2018-10-17] MEDS ORDERED: INSULIN (NOVOLOG) ASPART 100 UNITS/ML 10ML VIAL ONE (06:43)
[2018-10-17] MEDS: ALBUTEROL SO4 2.5/IPRATROPIUM 0.5 INH SOL 3 ML VIAL.NEB. NEB SCH ×4 (07:38→20:24)
[2018-10-17 08:47] LABS: ALK PHOS 121 U/L (45-117); ANION GAP 7 MMOL/L (8-16); BILIRUBIN,TOTAL 0.2 mg/dL (0.2-1); BLOOD UREA NITROGEN 45 mg/dL (7-18); CALCIUM 8.5 mg/dL (8.5-10.1); CHLORIDE 111 mmol/L (98-107); CO2 25 mmol/L (21-32); GLUCOSE,RANDOM 144 mg/dL (74-106); POTASSIUM 3.9 mmol/L (3.5-5.1); SGOT/AST 14 U/L (15-37); SGPT/ALT 6 U/L (13-61); SODIUM 142 mmol/L (136-145); TOT PROT 6.9 g/dl (6.4-8.2)
--- NOTE | 2018-10-17 09:59 | PN ---
Progress Note, Physician Chief Complaint: S/p fall UTI History of Present Illness: Previous notes and events reviewed awake and alert NAD denies complaints of chest pain or SOB c/o B/L calf tenderness - Current Medication List Current Medications: Active Medications Acetaminophen (Tylenol -) 650 mg PO Q6H PRN PRN Reason: FEVER Albuterol/Ipratropium (Duoneb -) 1 amp NEB RQID [facility] Last Admin: 10/17/18 07:38 Dose: 1 amp Amlodipine Besylate (Norvasc -) 5 mg PO DAILY [facility] Atorvastatin Calcium (Lipitor -) 20 mg PO HS [facility] Last Admin: 10/16/18 21:31 Dose: 20 mg Brimonidine Tartrate (Alphagan 0.2% -) 1 drop OU HS [facility] Last Admin: 10/16/18 21:30 Dose: 1 drop Budesonide/Formoterol Fumarate (Symbicort 160/4.5mcg -) 1 puff IH DAILY [facility] Last Admin: 10/16/18 09:44 Dose: 1 puff Carbidopa/Levodopa (Sinemet 25/100 -) 1 each PO TID [facility] Last Admin: 10/17/18 06:10 Dose: 1 each Febuxostat (Uloric -) 40 mg PO DAILY [facility] Last Admin: 10/16/18 09:43 Dose: 40 mg Heparin Sodium (Porcine) (Heparin -) 5,000 unit SQ BID [facility] Last Admin: 10/16/18 21:34 Dose: 5,000 unit Ceftriaxone Sodium 1 gm/ (Dextrose) 50 mls @ 100 mls/hr IVPB DAILY [facility]; Protocol Last Admin: 10/16/18 09:43 Dose: 100 mls/hr Sodium Chloride (1/2 Normal Saline) 1,000 mls @ 75 mls/hr IV ASDIR [facility] Last Admin: 10/17/18 06:10 Dose: 75 mls/hr Insulin Aspart (Novolog Vial Sliding Scale -) 1 vial SQ ACHS [facility]; Protocol Last Admin: 10/17/18 06:14 Dose: Not Given Latanoprost (Xalatan 0.005% Eye Drops -) 1 drop OU HS [facility] Last Admin: 10/16/18 21:37 Dose: 1 drop Levetiracetam (Keppra -) 500 mg PO BID [facility] Last Admin: 10/16/18 21:31 Dose: 500 mg Montelukast Sodium (Singulair -) 10 mg PO HS [facility] Last Admin: 10/16/18 21:31 Dose: 10 mg Bwbjq-5-Tcdv Ethyl Esters (Lovaza -) 2 gm PO BID [facility] Last Admin: 10/16/18 21:31 Dose: 2 gm Pantoprazole Sodium (Protonix -) 40 mg PO DAILY [facility] Last Admin: 10/16/18 09:42 Dose: 40 mg Sitagliptin Phosphate (Januvia -) 50 mg PO DAILY@0700 [facility] Last Admin: 10/17/18 06:10 Dose: 50 mg Timolol Maleate (Timoptic 0.5%) 1 drop OU [facility] Last Admin: 10/16/18 21:32 Dose: 1 drop - Objective Vital Signs: Vital Signs Temperature 98.3 F 10/17/18 06:36 Pulse Rate 65 10/17/18 06:36 Respiratory Rate 20 10/17/18 06:36 Blood Pressure 165/76 10/17/18 06:36 O2 Sat by Pulse Oximetry (%) 93 L 10/16/18 20:32 Constitutional: Yes: Well Nourished, No Distress, Calm Eyes: Yes: Conjunctiva Clear Neck: Yes: Supple Cardiovascular: Yes: Regular Rate and Rhythm Respiratory: Yes: Regular, CTA Bilaterally Gastrointestinal: Yes: Normal Bowel Sounds, Soft Genitourinary: Yes: Incontinence Musculoskeletal: Yes: Muscle Weakness Extremities: Yes: Calf Tenderness (B/L) Edema: No Neurological: Yes: Alert, Pre-Existing Deficit Psychiatric: Yes: Alert Labs: CBC, BMP 10/16/18 07:00 10/17/18 07:30 Microbiology 10/13/18 10:05 Urine Culture - Final Urine - Urine Clean Catch Escherichia Coli Vr Ec Faecalis 10/13/18 10:20 Blood Culture - Preliminary Blood - Peripheral Venous NO GROWTH OBTAINED AFTER 72 HOURS, INCUBATION TO CONTINUE FOR 2 DAYS. 10/13/18 10:10 Blood Culture - Preliminary Blood - Peripheral Venous NO GROWTH OBTAINED AFTER 72 HOURS, INCUBATION TO CONTINUE FOR 2 DAYS. <Diana Galarza - Last Filed: 10/17/18 09:54> - Current Medication List Current Medications: Active Medications Acetaminophen (Tylenol -) 650 mg PO Q6H PRN PRN Reason: FEVER Albuterol/Ipratropium (Duoneb -) 1 amp NEB RQID [facility] Last Admin: 10/18/18 07:40 Dose: 1 amp Amlodipine Besylate (Norvasc -) 5 mg PO DAILY [facility] Last Admin: 10/17/18 11:14 Dose: 5 mg Atorvastatin Calcium (Lipitor -) 20 mg PO HS [facility] Last Admin: 10/17/18 21:45 Dose: 20 mg Brimonidine Tartrate (Alphagan 0.2% -) 1 drop OU HS [facility] Last Admin: 10/17/18 21:47 Dose: 1 drop Budesonide/Formoterol Fumarate (Symbicort 160/4.5mcg -) 1 puff IH DAILY [facility] Last Admin: 10/17/18 11:19 Dose: 1 puff Carbidopa/Levodopa (Sinemet 25/100 -) 1 each PO TID [facility] Last Admin: 10/18/18 06:21 Dose: 1 each Febuxostat (Uloric -) 40 mg PO DAILY [facility] Last Admin: 10/17/18 11:16 Dose: 40 mg Heparin Sodium (Porcine) (Heparin -) 5,000 unit SQ BID [facility] Last Admin: 10/17/18 21:45 Dose: 5,000 unit Ceftriaxone Sodium 1 gm/ (Dextrose) 50 mls @ 100 mls/hr IVPB DAILY [facility]; Protocol Last Admin: 10/17/18 11:14 Dose: 100 mls/hr Sodium Chloride (1/2 Normal Saline) 1,000 mls @ 75 mls/hr IV ASDIR [facility] Last Admin: 10/17/18 21:58 Dose: 75 mls/hr Insulin Aspart (Novolog Vial Sliding Scale -) 1 vial SQ ACHS [facility]; Protocol Last Admin: 10/18/18 06:22 Dose: Not Given Latanoprost (Xalatan 0.005% Eye Drops -) 1 drop OU HS [facility] Last Admin: 10/17/18 21:48 Dose: 1 drop Levetiracetam (Keppra -) 500 mg PO BID [facility] Last Admin: 10/17/18 21:45 Dose: 500 mg Montelukast Sodium (Singulair -) 10 mg PO HS [facility] Last Admin: 10/17/18 21:45 Dose: 10 mg Kxrbk-8-Plpz Ethyl Esters (Lovaza -) 2 gm PO BID [facility] Last Admin: 10/17/18 21:46 Dose: 2 gm Pantoprazole Sodium (Protonix -) 40 mg PO DAILY [facility] Last Admin: 10/17/18 11:14 Dose: 40 mg Sitagliptin Phosphate (Januvia -) 50 mg PO DAILY@0700 [facility] Last Admin: 10/18/18 06:21 Dose: 50 mg Timolol Maleate (Timoptic 0.5%) 1 drop OU HS [facility] Last Admin: 10/17/18 21:47 Dose: 1 drop - Objective Vital Signs: Vital Signs Temperature 98 F 10/17/18 22:00 Pulse Rate 66 10/17/18 22:00 Respiratory Rate 18 10/17/18 22:00 Blood Pressure 134/72 10/17/18 22:00 O2 Sat by Pulse Oximetry (%) 95 10/17/18 21:00 Labs: CBC, BMP 10/18/18 07:00 10/18/18 07:00 <Akila Madera - Last Filed: 10/18/18 09:57> Problem List - Problems (1) Elevated troponin Code(s): R74.8 - ABNORMAL LEVELS OF OTHER SERUM ENZYMES (2) Fall Code(s): W19.XXXA - UNSPECIFIED FALL, INITIAL ENCOUNTER Qualifiers: Encounter type: initial encounter Qualified Code(s): W19.XXXA - Unspecified fall, initial encounter (3) UTI (urinary tract infection) Code(s): N39.0 - URINARY TRACT INFECTION, SITE NOT SPECIFIED Qualifiers: Urinary tract infection type: site unspecified Hematuria presence: without hematuria Qualified Code(s): N39.0 - Urinary tract infection, site not specified (4) Weakness Code(s): R53.1 - WEAKNESS (5) GENET (acute kidney injury) Code(s): N17.9 - ACUTE KIDNEY FAILURE, UNSPECIFIED (6) Anemia Code(s): D64.9 - ANEMIA, UNSPECIFIED <Diana Galarza - Last Filed: 10/17/18 09:54> - Problems (1) Fall Code(s): W19.XXXA - UNSPECIFIED FALL, INITIAL ENCOUNTER Qualifiers: Encounter type: initial encounter Qualified Code(s): W19.XXXA - Unspecified fall, initial encounter (2) UTI (urinary tract infection) Code(s): N39.0 - URINARY TRACT INFECTION, SITE NOT SPECIFIED Qualifiers: Urinary tract infection type: site unspecified Hematuria presence: without hematuria Qualified Code(s): N39.0 - Urinary tract infection, site not specified (3) Weakness Code(s): R53.1 - WEAKNESS (4) GENET (acute kidney injury) Code(s): N17.9 - ACUTE KIDNEY FAILURE, UNSPECIFIED (5) Acute respiratory failure Code(s): J96.00 - ACUTE RESPIRATORY FAILURE, UNSP W HYPOXIA OR HYPERCAPNIA Qualifiers: Respiratory failure complication: hypoxia Qualified Code(s): J96.01 - Acute respiratory failure with hypoxia (6) Anemia Code(s): D64.9 - ANEMIA, UNSPECIFIED Qualifiers: (7) COPD (chronic obstructive pulmonary disease) Code(s): J44.9 - CHRONIC OBSTRUCTIVE PULMONARY DISEASE, UNSPECIFIED (8) Diabetes Code(s): E11.9 - TYPE 2 DIABETES MELLITUS WITHOUT COMPLICATIONS Qualifiers: Diabetes mellitus type: type 2 Diabetes mellitus termite technician insulin use: without termite technician use Diabetes mellitus complication status: with hyperglycemia Qualified Code(s): E11.65 - Type 2 diabetes mellitus with hyperglycemia (9) Seizure Code(s): R56.9 - UNSPECIFIED CONVULSIONS <Akila Madera - Last Filed: 10/18/18 09:57> Assessment/Plan -PT eval -safety precautions, seizure precautions -contact precautions due to UTI -IV ABT -ID on board -tylenol for fever >100F -urology consult -UC positive -afebrile and wbc nl -Renal on board -cont to trend BUN/Cr -hold losartan until renal function improves -A1C 9.3%, nephrology consult -H/H currently stable, will cont to monitor -transfuse if Hg <8.0 -dvt ppx -low Na/diabetic diet <Diana Galarza - Last Filed: 10/17/18 09:54> PATIENT SEEN AND EXAMINED AND I AGREE WITH ABOVE NOTE <Akila Madera - Last Filed: 10/18/18 09:57>
[2018-10-17] MEDS ORDERED: DEXTROSE 5%-WATER - 50 ML IVPB ONE (11:09)
[2018-10-17] MEDS ORDERED: cefTRIAXone SODIUM 1 GM VIAL ONE (11:09)
[2018-10-17] MEDS: amLODIPine BESYLATE 5 MG TABLET (FP) PO SCH (11:14)
[2018-10-17] MEDS: CEFTRIAXONE 1 GM in DEXTROSE 5%-WATER - 50 ML IVPB SCH (11:14)
[2018-10-17] MEDS: HEPARIN NA (PORCINE) 5,000 UNITS/ML 1ML VIAL SQ SCH ×2 (11:14→21:45)
[2018-10-17] MEDS: levETIRAcetam 500 MG TABLET (FP) PO SCH ×2 (11:14→21:45)
[2018-10-17] MEDS: PANTOPRAZOLE 40 MG TABLET (FP) PO SCH (11:14)
[2018-10-17] MEDS: OMEGA-3 ACID ETHYL ESTERS (FATTY-ACIDS) 1 GM CAPSULE (FP) PO SCH ×2 (11:15→21:46)
[2018-10-17] MEDS: FEBUXOSTAT 40 MG TAB PO SCH (11:16)
[2018-10-17] MEDS: BUDESONIDE/FORMETEROL FUMARATE 160/4.5 mcg INHALER IH SCH (11:19)
--- NOTE | 2018-10-17 11:42 | PN ---
Progress Note, Physician History of Present Illness: Pt seen and examined at bedside. Her appetite is improved. She denies shortness of breath. - Current Medication List Current Medications: Active Medications Acetaminophen (Tylenol -) 650 mg PO Q6H PRN PRN Reason: FEVER Albuterol/Ipratropium (Duoneb -) 1 amp NEB RQID [facility] Last Admin: 10/17/18 07:38 Dose: 1 amp Amlodipine Besylate (Norvasc -) 5 mg PO DAILY [facility] Last Admin: 10/17/18 11:14 Dose: 5 mg Atorvastatin Calcium (Lipitor -) 20 mg PO HS [facility] Last Admin: 10/16/18 21:31 Dose: 20 mg Brimonidine Tartrate (Alphagan 0.2% -) 1 drop OU HS [facility] Last Admin: 10/16/18 21:30 Dose: 1 drop Budesonide/Formoterol Fumarate (Symbicort 160/4.5mcg -) 1 puff IH DAILY [facility] Last Admin: 10/17/18 11:19 Dose: 1 puff Carbidopa/Levodopa (Sinemet 25/100 -) 1 each PO TID [facility] Last Admin: 10/17/18 06:10 Dose: 1 each Febuxostat (Uloric -) 40 mg PO DAILY [facility] Last Admin: 10/17/18 11:16 Dose: 40 mg Heparin Sodium (Porcine) (Heparin -) 5,000 unit SQ BID [facility] Last Admin: 10/17/18 11:14 Dose: 5,000 unit Ceftriaxone Sodium 1 gm/ (Dextrose) 50 mls @ 100 mls/hr IVPB DAILY [facility]; Protocol Last Admin: 10/17/18 11:14 Dose: 100 mls/hr Sodium Chloride (1/2 Normal Saline) 1,000 mls @ 75 mls/hr IV ASDIR [facility] Last Admin: 10/17/18 06:10 Dose: 75 mls/hr Insulin Aspart (Novolog Vial Sliding Scale -) 1 vial SQ ACHS [facility]; Protocol Last Admin: 10/17/18 06:14 Dose: Not Given Latanoprost (Xalatan 0.005% Eye Drops -) 1 drop OU HS [facility] Last Admin: 10/16/18 21:37 Dose: 1 drop Levetiracetam (Keppra -) 500 mg PO BID [facility] Last Admin: 10/17/18 11:14 Dose: 500 mg Montelukast Sodium (Singulair -) 10 mg PO [facility] Last Admin: 10/16/18 21:31 Dose: 10 mg Ofkik-6-Fckw Ethyl Esters (Lovaza -) 2 gm PO BID [facility] Last Admin: 10/17/18 11:15 Dose: 2 gm Pantoprazole Sodium (Protonix -) 40 mg PO DAILY [facility] Last Admin: 10/17/18 11:14 Dose: 40 mg Sitagliptin Phosphate (Januvia -) 50 mg PO DAILY@0700 [facility] Last Admin: 10/17/18 06:10 Dose: 50 mg Timolol Maleate (Timoptic 0.5%) 1 drop OU [facility] Last Admin: 10/16/18 21:32 Dose: 1 drop - Objective Vital Signs: Vital Signs Temperature 98.3 F 10/17/18 06:36 Pulse Rate 65 10/17/18 06:36 Respiratory Rate 20 10/17/18 06:36 Blood Pressure 165/76 10/17/18 06:36 O2 Sat by Pulse Oximetry (%) 93 L 10/16/18 20:32 Constitutional: Yes: Calm Eyes: Yes: Conjunctiva Clear Cardiovascular: Yes: S1, S2 Respiratory: Yes: CTA Bilaterally Gastrointestinal: Yes: Soft Genitourinary: Yes: WNL Musculoskeletal: Yes: WNL Edema: No Neurological: Yes: Oriented Psychiatric: Yes: Oriented Labs: CBC, BMP 10/16/18 07:00 10/17/18 07:30 Problem List - Problems (1) Fall Code(s): W19.XXXA - UNSPECIFIED FALL, INITIAL ENCOUNTER Qualifiers: Encounter type: initial encounter Qualified Code(s): W19.XXXA - Unspecified fall, initial encounter (2) UTI (urinary tract infection) Code(s): N39.0 - URINARY TRACT INFECTION, SITE NOT SPECIFIED Qualifiers: Urinary tract infection type: site unspecified Hematuria presence: without hematuria Qualified Code(s): N39.0 - Urinary tract infection, site not specified Assessment/Plan Current Medications Generic Name Dose Route Start Last Admin Trade Name Freq PRN Reason Stop Dose Admin Acetaminophen 650 mg 10/13/18 18:32 Tylenol - PO Q6H PRN FEVER Albuterol/Ipratropium 1 amp 10/13/18 20:00 10/17/18 07:38 Duoneb - NEB 1 amp RQID [facility] Administration Amlodipine Besylate 5 mg 10/17/18 10:00 10/17/18 11:14 Norvasc - PO 5 mg DAILY [facility] Administration Atorvastatin Calcium 20 mg 10/13/18 22:00 10/16/18 21:31 Lipitor - PO 20 mg HS [facility] Administration Brimonidine Tartrate 1 drop 10/13/18 22:00 10/16/18 21:30 Alphagan 0.2% - OU 1 drop HS [facility] Administration Budesonide/Formoterol Fumarate 1 puff 10/14/18 10:00 10/17/18 11:19 Symbicort 160/4.5mcg - IH 1 puff DAILY [facility] Administration Carbidopa/Levodopa 1 each 10/13/18 22:00 10/17/18 06:10 Sinemet 25/100 - PO 1 each TID [facility] Administration Febuxostat 40 mg 10/14/18 10:00 10/17/18 11:16 Uloric - PO 40 mg DAILY [facility] Administration Heparin Sodium (Porcine) 5,000 unit 10/13/18 22:00 10/17/18 11:14 Heparin - SQ 5,000 unit BID [facility] Administration Ceftriaxone Sodium 1 gm/ 50 mls @ 100 mls/hr 10/14/18 10:00 10/17/18 11:14 Dextrose IVPB 100 mls/hr DAILY [facility] Administration Protocol Sodium Chloride 1,000 mls @ 75 mls/hr 10/14/18 17:45 10/17/18 06:10 1/2 Normal Saline IV 75 mls/hr ASDIR [facility] Administration Insulin Aspart 1 vial 10/13/18 22:00 10/17/18 06:14 Novolog Vial Sliding Scale - SQ Not Given ACHS [facility] Protocol Latanoprost 1 drop 10/13/18 22:00 10/16/18 21:37 Xalatan 0.005% Eye Drops - OU 1 drop HS [facility] Administration Levetiracetam 500 mg 10/13/18 22:00 10/17/18 11:14 Keppra - PO 500 mg BID [facility] Administration Montelukast Sodium 10 mg 10/13/18 22:00 10/16/18 21:31 Singulair - PO 10 mg HS [facility] Administration Tnwzj-0-Mvbu Ethyl Esters 2 gm 10/13/18 22:00 10/17/18 11:15 Lovaza - PO 2 gm BID [facility] Administration Pantoprazole Sodium 40 mg 10/14/18 10:00 10/17/18 11:14 Protonix - PO 40 mg DAILY [facility] Administration Sitagliptin Phosphate 50 mg 10/14/18 07:00 10/17/18 06:10 Januvia - PO 50 mg DAILY@0700 [facility] Administration Timolol Maleate 1 drop 10/13/18 22:00 10/16/18 21:32 Timoptic 0.5% OU 1 drop HS [facility] Administration Impression 1. GENET 2. CKD 3. DM 4. dementia 5. seizure 6. dementia 7. pulmonary nodule 8. anemia 9. hypernatremia 10. proteinuria 11. s/p fall 12. right side hydro Plan - losartan on hold - monitor bp and increase amlodipine to 10 mg if needed - renal function is not improved - repeat ua and lytes - repeat bmp in am - cont with fluids - abx for UTI
[2018-10-17] MEDS: ATORVASTATIN CA 20 MG TABLET (FP) PO SCH (21:45)
[2018-10-17] MEDS: MONTELUKAST NA 10 MG TABLET PO SCH (21:45)
[2018-10-17] MEDS: TIMOLOL 0.5% OPHTHALMIC SOL 5 ML BOTTLE OU SCH (21:47)
[2018-10-17] MEDS: BRIMONIDINE TARTRATE 0.2% OPHTHALMIC 5 ML BOTTLE OU SCH (21:47)
[2018-10-17] MEDS: LATANOPROST 0.005% OPHTH SOLN 2.5ML BOTTLE OU SCH (21:48)
[2018-10-18] MEDS: sitaGLIPtin PHOSPHATE 50 MG TABLET PO SCH (06:21)
[2018-10-18] MEDS: CARBIDOPA/LEVODOPA 25/100 TABLET (FP) PO SCH ×2 (06:21→14:33)
[2018-10-18] MEDS: INSULIN SLIDING SCALE (NOVOLOG) 1 VIAL SQ SCH ×2 (06:22→12:03)
[2018-10-18 07:38] LABS: HEMOGLOBIN 10.6 GM/dL (10.7-15.3); MCH 30.8 pg (25.7-33.7); MCHC 33.3 g/dl (32.0-36.0); MEAN CELL VOLUME 92.6 fl (80-96); MEAN PLT VOLUME 10.5 fl (7.5-11.1); PLATELET COUNT 204 K/MM3 (134-434); RBC 3.46 M/mm3 (3.60-5.2); WHITE BLOOD COUNT 7.4 K/mm3 (4.0-10.0)
[2018-10-18] MEDS: ALBUTEROL SO4 2.5/IPRATROPIUM 0.5 INH SOL 3 ML VIAL.NEB. NEB SCH ×3 (07:40→15:25)
[2018-10-18 08:28] LABS: ALBUMIN 3.2 g/dl (3.4-5.0); ALK PHOS 114 U/L (45-117); ANION GAP 9 MMOL/L (8-16); BILIRUBIN,TOTAL 0.3 mg/dL (0.2-1); BLOOD UREA NITROGEN 35 mg/dL (7-18); CALCIUM 8.7 mg/dL (8.5-10.1); CHLORIDE 111 mmol/L (98-107); CO2 24 mmol/L (21-32); CREATININE 1.6 mg/dL (0.55-1.3); GLUCOSE,RANDOM 123 mg/dL (74-106); POTASSIUM 3.8 mmol/L (3.5-5.1); SGOT/AST 16 U/L (15-37); SGPT/ALT 7 U/L (13-61); SODIUM 144 mmol/L (136-145); TOT PROT 7.1 g/dl (6.4-8.2)
--- NOTE | 2018-10-18 10:18 | DS ---
Physical Examination Vital Signs: Vital Signs Temperature 98 F 10/17/18 22:00 Pulse Rate 66 10/17/18 22:00 Respiratory Rate 18 10/17/18 22:00 Blood Pressure 134/72 10/17/18 22:00 O2 Sat by Pulse Oximetry (%) 95 10/17/18 21:00 Constitutional: Yes: Mild Distress Eyes: Yes: WNL HENT: Yes: WNL Neck: Yes: WNL Cardiovascular: Yes: Regular Rate and Rhythm Respiratory: Yes: WNL Gastrointestinal: Yes: WNL Renal/: Yes: Incontinence Musculoskeletal: Yes: Muscle Weakness Extremities: Yes: Other Edema: No Peripheral Pulses WNL: Yes Integumentary: Yes: Rash Neurological: Yes: Pre-Existing Deficit ...Motor Strength: LLE, RLE Psychiatric: Yes: Other Labs: CBC, BMP 10/18/18 07:00 10/18/18 07:00 Discharge Summary Reason For Visit: GENET,UTI, AMS, FALL Current Active Problems Elevated troponin (Acute) Fall (Acute) UTI (urinary tract infection) (Acute) Weakness (Acute) Procedures: Principal: SONO/DOPPLER Other Procedures: XRAYS Hospital Course: ADMITTED UTI, DEHYDRATION, TROPONIN ELEVATION, S/P FALL TREATED AND WILL NEED PT Condition: Fair - Instructions Referrals: Akila Madera MD [Primary Care Provider] - Disposition: ALF FACILITY - Home Medications Comprehensive Discharge Medication List: Ambulatory Orders Albuterol Sulfate Inhaler - [Ventolin HFA Inhaler -] 1 - 2 inh PO QID 09/12/17 Atorvastatin Ca [Lipitor] 20 mg PO HS 09/12/17 Bimatoprost [Lumigan] 1 drop IO DAILY 09/12/17 Brimonidine Tartrate/Timolol [Combigan 0.2%-0.5% Eye Drops] 5 ml OP HS 09/12/17 Budesonide/Formeterol Fumarate [SYMBICORT 160/4.5mcg -] 1 inh PO DAILY 09/12/17 Febuxostat [Uloric] 40 mg PO DAILY 09/12/17 Icosapent Ethyl [Vascepa] 1 gm PO DAILY 09/12/17 Montelukast Na [Singulair -] 10 mg PO HS 09/12/17 Omeprazole 20 mg PO DAILY 09/12/17 Acetaminophen [Tylenol .Regular Strength -] 650 mg PO Q6H PRN tablet 12/26/17 Albuterol 2.5/Ipratropium 0.5 [Duoneb -] 1 amp NEB RQID amp 05/06/18 Carbidopa/Levodopa 25/100 [Sinemet 25/100 -] 1 each PO TID tablet 05/06/18 Insulin Sliding Scale [Novolog Vial Sliding Scale -] 1 vial SQ ACHS units 05/06 Sitagliptin Phosphate [Januvia -] 50 mg PO DAILY@0700 tablet 05/06/18 levETIRAcetam [Keppra -] 500 mg PO BID tablet 05/06/18 Brimonidine Tartrate [Alphagan 0.2% -] 1 drop OU HS drops 05/09/18 Heparin - 5,000 unit SQ BID vial 05/09/18 Latanoprost 0.005% Eye Drops [Xalatan 0.005% Eye Drops -] 1 drop OU HS drops Losartan Potassium [Cozaar -] 50 mg PO DAILY tablet 05/09/18
[2018-10-18] MEDS ORDERED: PT OWN MED DRAWER 7, Y5N ONE (10:29)
[2018-10-18] MEDS ORDERED: cefTRIAXone SODIUM 1 GM VIAL ONE (10:30)
[2018-10-18] MEDS ORDERED: DEXTROSE 5%-WATER - 50 ML IVPB ONE (10:30)
[2018-10-18] MEDS: amLODIPine BESYLATE 5 MG TABLET (FP) PO SCH (10:35)
[2018-10-18] MEDS: levETIRAcetam 500 MG TABLET (FP) PO SCH (10:35)
[2018-10-18] MEDS: PANTOPRAZOLE 40 MG TABLET (FP) PO SCH (10:35)
[2018-10-18] MEDS: FEBUXOSTAT 40 MG TAB PO SCH (10:36)
[2018-10-18] MEDS: CEFTRIAXONE 1 GM in DEXTROSE 5%-WATER - 50 ML IVPB SCH (10:36)
[2018-10-18] MEDS: HEPARIN NA (PORCINE) 5,000 UNITS/ML 1ML VIAL SQ SCH (10:37)
[2018-10-18] MEDS: OMEGA-3 ACID ETHYL ESTERS (FATTY-ACIDS) 1 GM CAPSULE (FP) PO SCH (10:37)
[2018-10-18] MEDS: BUDESONIDE/FORMETEROL FUMARATE 160/4.5 mcg INHALER IH SCH (10:39)
[2018-10-18 10:56] VITALS: BP 155/85; PULSE 68; TEMP 97.9
--- NOTE | 2018-10-18 11:11 | PN ---
Progress Note, Physician History of Present Illness: Awake, confused Offers no complaints Denies dysuria No fever/ chills - Current Medication List Current Medications: Active Medications Acetaminophen (Tylenol -) 650 mg PO Q6H PRN PRN Reason: FEVER Albuterol/Ipratropium (Duoneb -) 1 amp NEB RQID [facility] Last Admin: 10/18/18 07:40 Dose: 1 amp Amlodipine Besylate (Norvasc -) 5 mg PO DAILY [facility] Last Admin: 10/18/18 10:35 Dose: 5 mg Amoxicillin/Clavulanate Potassium (Augmentin - 500mg Tablet) 1 tab PO BID@0800, 1730 [facility] Atorvastatin Calcium (Lipitor -) 20 mg PO HS [facility] Last Admin: 10/17/18 21:45 Dose: 20 mg Brimonidine Tartrate (Alphagan 0.2% -) 1 drop OU HS [facility] Last Admin: 10/17/18 21:47 Dose: 1 drop Budesonide/Formoterol Fumarate (Symbicort 160/4.5mcg -) 1 puff IH DAILY [facility] Last Admin: 10/18/18 10:39 Dose: 1 puff Carbidopa/Levodopa (Sinemet 25/100 -) 1 each PO TID [facility] Last Admin: 10/18/18 06:21 Dose: 1 each Febuxostat (Uloric -) 40 mg PO DAILY [facility] Last Admin: 10/18/18 10:36 Dose: 40 mg Heparin Sodium (Porcine) (Heparin -) 5,000 unit SQ BID [facility] Last Admin: 10/18/18 10:37 Dose: 5,000 unit Sodium Chloride (1/2 Normal Saline) 1,000 mls @ 75 mls/hr IV ASDIR [facility] Last Admin: 10/17/18 21:58 Dose: 75 mls/hr Insulin Aspart (Novolog Vial Sliding Scale -) 1 vial SQ ACHS [facility]; Protocol Last Admin: 10/18/18 06:22 Dose: Not Given Latanoprost (Xalatan 0.005% Eye Drops -) 1 drop OU HS [facility] Last Admin: 10/17/18 21:48 Dose: 1 drop Levetiracetam (Keppra -) 500 mg PO BID [facility] Last Admin: 10/18/18 10:35 Dose: 500 mg Montelukast Sodium (Singulair -) 10 mg PO [facility] Last Admin: 10/17/18 21:45 Dose: 10 mg Qxvyr-6-Rxss Ethyl Esters (Lovaza -) 2 gm PO BID [facility] Last Admin: 10/18/18 10:37 Dose: 2 gm Pantoprazole Sodium (Protonix -) 40 mg PO DAILY [facility] Last Admin: 10/18/18 10:35 Dose: 40 mg Sitagliptin Phosphate (Januvia -) 50 mg PO DAILY@0700 [facility] Last Admin: 10/18/18 06:21 Dose: 50 mg Timolol Maleate (Timoptic 0.5%) 1 drop OU [facility] Last Admin: 10/17/18 21:47 Dose: 1 drop - Objective Vital Signs: Vital Signs Temperature 97.9 F 10/18/18 06:00 Pulse Rate 68 10/18/18 06:00 Respiratory Rate 18 10/18/18 09:00 Blood Pressure 155/85 10/18/18 06:00 O2 Sat by Pulse Oximetry (%) 95 10/18/18 09:00 Constitutional: Yes: No Distress Eyes: Yes: Conjunctiva Clear Cardiovascular: Yes: Regular Rate and Rhythm, S1, S2 Respiratory: Yes: CTA Bilaterally Gastrointestinal: Yes: Normal Bowel Sounds, Soft. No: Tenderness Edema: No Labs: CBC, BMP 10/18/18 07:00 10/18/18 07:00 Assessment/Plan UTI Azotemia OBS IDDM Substitute po Augmentin 50mg bid x 7d
--- NOTE | 2018-10-18 14:55 | PN ---
Progress Note, Physician History of Present Illness: Pt seen and examined at bedside. She appears comfortable. She denies shortness of breath. - Current Medication List Current Medications: Active Medications Acetaminophen (Tylenol -) 650 mg PO Q6H PRN PRN Reason: FEVER Albuterol/Ipratropium (Duoneb -) 1 amp NEB RQID [facility] Last Admin: 10/18/18 11:28 Dose: 1 amp Amlodipine Besylate (Norvasc -) 5 mg PO DAILY [facility] Last Admin: 10/18/18 10:35 Dose: 5 mg Amoxicillin/Clavulanate Potassium (Augmentin - 500mg Tablet) 1 tab PO BID@0800, 1730 [facility] Atorvastatin Calcium (Lipitor -) 20 mg PO HS [facility] Last Admin: 10/17/18 21:45 Dose: 20 mg Brimonidine Tartrate (Alphagan 0.2% -) 1 drop OU HS [facility] Last Admin: 10/17/18 21:47 Dose: 1 drop Budesonide/Formoterol Fumarate (Symbicort 160/4.5mcg -) 1 puff IH DAILY [facility] Last Admin: 10/18/18 10:39 Dose: 1 puff Carbidopa/Levodopa (Sinemet 25/100 -) 1 each PO TID [facility] Last Admin: 10/18/18 14:33 Dose: 1 each Febuxostat (Uloric -) 40 mg PO DAILY [facility] Last Admin: 10/18/18 10:36 Dose: 40 mg Heparin Sodium (Porcine) (Heparin -) 5,000 unit SQ BID [facility] Last Admin: 10/18/18 10:37 Dose: 5,000 unit Sodium Chloride (1/2 Normal Saline) 1,000 mls @ 75 mls/hr IV ASDIR [facility] Last Admin: 10/17/18 21:58 Dose: 75 mls/hr Insulin Aspart (Novolog Vial Sliding Scale -) 1 vial SQ ACHS [facility]; Protocol Last Admin: 10/18/18 12:03 Dose: Not Given Latanoprost (Xalatan 0.005% Eye Drops -) 1 drop OU HS [facility] Last Admin: 10/17/18 21:48 Dose: 1 drop Levetiracetam (Keppra -) 500 mg PO BID [facility] Last Admin: 10/18/18 10:35 Dose: 500 mg Montelukast Sodium (Singulair -) 10 mg PO HS [facility] Last Admin: 10/17/18 21:45 Dose: 10 mg [id number] Ethyl Esters (Lovaza -) 2 gm PO BID [facility] Last Admin: 10/18/18 10:37 Dose: 2 gm Pantoprazole Sodium (Protonix -) 40 mg PO DAILY [facility] Last Admin: 10/18/18 10:35 Dose: 40 mg Sitagliptin Phosphate (Januvia -) 50 mg PO DAILY@0700 [facility] Last Admin: 10/18/18 06:21 Dose: 50 mg Timolol Maleate (Timoptic 0.5%) 1 drop OU [facility] Last Admin: 10/17/18 21:47 Dose: 1 drop - Objective Vital Signs: Vital Signs Temperature 97.9 F 10/18/18 06:00 Pulse Rate 68 10/18/18 06:00 Respiratory Rate 18 10/18/18 09:00 Blood Pressure 155/85 10/18/18 06:00 O2 Sat by Pulse Oximetry (%) 95 10/18/18 09:00 Constitutional: Yes: Calm Eyes: Yes: Conjunctiva Clear HENT: Yes: Atraumatic Cardiovascular: Yes: S1, S2 Respiratory: Yes: CTA Bilaterally Genitourinary: Yes: WNL Musculoskeletal: Yes: WNL Edema: No Neurological: Yes: Oriented Psychiatric: Yes: Oriented Labs: CBC, BMP 10/18/18 07:00 10/18/18 07:00 Problem List - Problems (1) Fall Code(s): W19.XXXA - UNSPECIFIED FALL, INITIAL ENCOUNTER Qualifiers: Encounter type: initial encounter Qualified Code(s): W19.XXXA - Unspecified fall, initial encounter (2) UTI (urinary tract infection) Code(s): N39.0 - URINARY TRACT INFECTION, SITE NOT SPECIFIED Qualifiers: Urinary tract infection type: site unspecified Hematuria presence: without hematuria Qualified Code(s): N39.0 - Urinary tract infection, site not specified Assessment/Plan Current Medications Generic Name Dose Route Start Last Admin Trade Name Freq PRN Reason Stop Dose Admin Acetaminophen 650 mg 10/13/18 18:32 Tylenol - PO Q6H PRN FEVER Albuterol/Ipratropium 1 amp 10/13/18 20:00 10/18/18 11:28 Duoneb - NEB 1 amp RQID [facility] Administration Amlodipine Besylate 5 mg 10/17/18 10:00 10/18/18 10:35 Norvasc - PO 5 mg DAILY [facility] Administration Amoxicillin/Clavulanate Potassium 1 tab 10/18/18 17:30 Augmentin - 500mg Tablet PO BID@0800,1730 [facility] Atorvastatin Calcium 20 mg 10/13/18 22:00 10/17/18 21:45 Lipitor - PO 20 mg HS [facility] Administration Brimonidine Tartrate 1 drop 10/13/18 22:00 10/17/18 21:47 Alphagan 0.2% - OU 1 drop HS [facility] Administration Budesonide/Formoterol Fumarate 1 puff 10/14/18 10:00 10/18/18 10:39 Symbicort 160/4.5mcg - IH 1 puff DAILY [facility] Administration Carbidopa/Levodopa 1 each 10/13/18 22:00 10/18/18 14:33 Sinemet 25/100 - PO 1 each TID [facility] Administration Febuxostat 40 mg 10/14/18 10:00 10/18/18 10:36 Uloric - PO 40 mg DAILY [facility] Administration Heparin Sodium (Porcine) 5,000 unit 10/13/18 22:00 10/18/18 10:37 Heparin - SQ 5,000 unit BID [facility] Administration Sodium Chloride 1,000 mls @ 75 mls/hr 10/14/18 17:45 10/17/18 21:58 1/2 Normal Saline IV 75 mls/hr ASDIR [facility] Administration Insulin Aspart 1 vial 10/13/18 22:00 10/18/18 12:03 Novolog Vial Sliding Scale - SQ Not Given ACHS [facility] Protocol Latanoprost 1 drop 10/13/18 22:00 10/17/18 21:48 Xalatan 0.005% Eye Drops - OU 1 drop HS [facility] Administration Levetiracetam 500 mg 10/13/18 22:00 10/18/18 10:35 Keppra - PO 500 mg BID [facility] Administration Montelukast Sodium 10 mg 10/13/18 22:00 10/17/18 21:45 Singulair - PO 10 mg HS [facility] Administration [id number] Ethyl Esters 2 gm 10/13/18 22:00 10/18/18 10:37 Lovaza - PO 2 gm BID [facility] Administration Pantoprazole Sodium 40 mg 10/14/18 10:00 10/18/18 10:35 Protonix - PO 40 mg DAILY [facility] Administration Sitagliptin Phosphate 50 mg 10/14/18 07:00 10/18/18 06:21 Januvia - PO 50 mg DAILY@0700 [facility] Administration Timolol Maleate 1 drop 10/13/18 22:00 10/17/18 21:47 Timoptic 0.5% OU 1 drop HS [facility] Administration Impression 1. EGNET 2. CKD 3. DM 4. dementia 5. seizure 6. dementia 7. pulmonary nodule 8. anemia 9. hypernatremia 10. proteinuria 11. s/p fall 12. right side hydro Plan - renal function is improved - keep losartan on hold for now - monitor renal function - cont fluids - encourage PO intake - follow urine studies - abx for UTI
[2018-10-18] MEDS ORDERED: AMOX TR/POT CLAV 500MG/125MG TABLETS (FP) PO SCH (17:30)
== END 2018-10-18 17:24 | DRG 683 ==
LOC: JER 08:54 → JERBED 10:08 → J8W 13:14
PROVIDERS: ADMIT Family Medicine; ATTEND Family Medicine
DX: N17.9 Acute kidney failure, unspecified (principal); N39.0 Urinary tract infection, site not specified; E87.0 Hyperosmolality and hypernatremia; D64.9 Anemia, unspecified; N18.9 Chronic kidney disease, unspecified; N13.30 Unspecified hydronephrosis; R56.9 Unspecified convulsions; E86.0 Dehydration; B96.29 Other Escherichia coli [E. coli] as the cause of diseases classified elsewhere; S39.82XA Other specified injuries of lower back, initial encounter; W06.XXXA Fall from bed, initial encounter; Y93.89 Activity, other specified; Y92.032 Bedroom in apartment as the place of occurrence of the external cause; Y99.8 Other external cause status; J44.9 Chronic obstructive pulmonary disease, unspecified; K21.9 Gastro-esophageal reflux disease without esophagitis; F31.9 Bipolar disorder, unspecified; G30.9 Alzheimer's disease, unspecified; G20 Parkinson's disease; Z91.81 History of falling; R74.8 Abnormal levels of other serum enzymes; Z79.84 Long term (current) use of oral hypoglycemic drugs; Z79.4 Long term (current) use of insulin; E66.9 Obesity, unspecified; Z68.31 Body mass index [BMI] 31.0-31.9, adult; M10.9 Gout, unspecified; R91.1 Solitary pulmonary nodule; R80.9 Proteinuria, unspecified; R32 Unspecified urinary incontinence
CPT/HCPCS: 36415; 71045-TC-FY; 72100-TC-FY; 72170-TC-FY; 73560-TC-LT-FY; 73560-TC-RT-FY; 76775-TC; 80048; 80053; 81003; 81015; 82550; 82607; 82728; 82746; 82962; 83036; 83540; 83550; 84439; 84443; 84484; 85025; 85027; 87040; 87086; 87186; 93005; 93010; 93970-TC; 94640; 97116-GP; 97162-GP; 99284-25; J1644